=== PATIENT | male | born 1965 | race Caucasian/White ===

== ENCOUNTER → 2023-10-02 10:25 | Outpatient (REF) | payer OTHER, SELFPAY | LOC: RAD 10:25 | PROVIDERS: ATTENDING PHYSICIAN Surgery Vascular Surgery | DX: I77.0 Arteriovenous fistula, acquired (principal) | CPT/HCPCS: 93990 ==

== ENCOUNTER 2023-11-27 07:21 | Day surgery (SDC) | payer OTHER, SELFPAY ==
[2023-11-27] MEDS: NSS 500 IV (08:24)
[2023-11-27 08:25] VITALS: BMI 28.4
[2023-11-27 08:27] LABS: Hematocrit 33.8 % (39.0-52.0); Hemoglobin 11.9 g/dL (13.0-18.0); Mean Corp Hgb Conc. 35.2 g/dL (33.0-37.0); Mean Corpuscular Volume 85.1 fL (80.0-94.0); Mean Platelet Volume 9.7 fL (7.4-10.4); Platelet Count 184 10^3/uL (130-400); Red Blood Cell Count 3.97 10^6/uL (4.70-6.10); Red Cell Dist. Width 17.2 % (11.5-14.5); White Blood Cell Count 4.4 10^3/uL (4.8-10.8)
[2023-11-27 08:33] LABS: Glucose - Point of Care 77 mg/dl (70-99)
[2023-11-27 08:40] LABS: INR 1.67; PT 19.8 Sec (11.4-14.6)
[2023-11-27 08:41] LABS: APTT 40.8 Sec (23.4-35.0)
[2023-11-27 08:44] VITALS: BP 142/62
--- NOTE | 2023-11-27 08:52 | W.SUR.PREOP ---
Pre-Operative Surgical Note
-
I have examined this patient prior to the performance of the scheduled procedure.
The patient's condition is unchanged from the time of the current History and
Physical and the patient is able to undergo the scheduled procedure.
--- NOTE | 2023-11-27 08:59 | PTCARENOTE ---
TYPE AND SCREEN REJECTED BY BLOOD BANK. DR AKBAR AWARE AND D/C REPEAT TYPE AND SCREEN
[2023-11-27 09:21] LABS: Blood Urea Nitrogen 19 mg/dl (9-20); Carbon Dioxide 21 mmol/L (22-30); Chloride 98 mmol/L (98-107); Estimated Creatinine Clearance 23 ml/min; Glucose 93 mg/dl (70-99); Potassium 3.7 mmol/L (3.5-5.1); Sodium 132 mmol/L (135-145); eGFR 21.74
--- NOTE | 2023-11-27 10:27 | W.SUR.POST ---
Surgical Immediate Post Op
Note
Pre Op Diagnosis: ESRD
Post Op Diagnosis: same
Procedure Performed: LUE fistulagram, central venogram, Balloon angioplasty of perianastomotic stenosis with 5 mm and 6 mm angioplasty balloons, Balloon angioplasty of proximal outflow vein stenosis with 5 mm, 6 mm, 7 mm angioplasty balloons,
Balloon angioplasty of cephalic arch stenosis with 6 mm and 7 mm angioplasty balloon.
Primary Surgeon: Tu
Anesthesia: local and sedation
Estimated Blood Loss: <2cc
Fluids: see anesthesia flow sheet
Drains/Shunts: none
Specimens/Cultures: none
Doppler/Duplex/Angio (Y/N): Y
Complications: none
Operative Findings: +thrill
[2023-11-27 10:28] VITALS: BP 119/53; BP 142/62
[2023-11-27 10:30] VITALS: BP 118/54
[2023-11-27 10:34] LABS: Glucose - Point of Care 86 mg/dl (70-99)
--- NOTE | 2023-11-27 10:37 | OR.RPT ---
Operative Report
Operative Report
PROCEDURE DATE: 11/27/2023
Preoperative diagnosis:
1. End-stage renal disease on hemodialysis.
2. Failing left upper extremity arteriovenous fistula.
Postoperative diagnosis: Same
Procedure:
1. Duplex assisted cannulation of left upper extremity fistula.
2. Left upper extremity fistulogram and central venogram.
3. Balloon angioplasty of perianastomotic stenosis with 5 mm and 6 mm angioplasty balloons.
4. Balloon angioplasty of proximal outflow vein stenosis with 5 mm, 6 mm, 7 mm angioplasty balloons.
5. Balloon angioplasty of cephalic arch stenosis with 6 mm and 7 mm angioplasty balloon.
6. Supervision and interpretation.
Surgeon: Tu
[employer]: None
Complications: None
Anesthesia: Local, sedation
Fluoroscopy:
5.6 min
16 mGy
3.31 Gy.cm2
Indications for procedure:
End-stage renal disease on hemodialysis. Left upper extremity fistula not maturing/not functioning well. Plan for fistulogram. Risk/benefits/alternatives also discussed. Patient understood all wish to proceed.
Description of procedure:
Patient was identified, brought to the operating room. Placed on the table in the supine position. After the adequate administration of anesthesia, the patient was prepped and draped in the standard surgical fashion. A standard preoperative
timeout was undertaken and everybody was in agreement with the plan.
I punctured the outflow vein of the fistula in the mid to proximal upper arm in a peripheral facing direction using a micropuncture kit under direct duplex ultrasound guidance. A 5 [place]ogolese sheath was then advanced over a 0.035 inch wire.
Fistulogram and central venogram demonstrated patent outflow vein of the fistula in the vicinity of the sheath. No additional upper arm stenoses were identified. However at the cephalic arch there was a string-like severe stenosis. Central
venogram central to this demonstrated no additional stenoses.
At this point, using a flopping of hydrophilic wire and a glide catheter I advanced the catheter to the perianastomotic area. Fistulogram from here demonstrated patent anastomosis with moderate to high-grade stenosis at the anastomosis or in the
immediate outflow just beyond the anastomosis. A second stenosis at least moderate in the slightly more distal outflow but still in the proximal segment of the outflow vein was noted between slightly aneurysmal areas of the vein. At this point, I
used a flopping of hydrophilic wire and the glide catheter and gained access into the brachial artery proximally. I then exchanged for a 0.035 inch Storq wire. I next performed balloon angioplasty of both the areas of stenosis (perianastomotic and
proximal outflow vein) first with a 5 mm angioplasty balloon and then with a 6 mm angioplasty balloon. Completion angiogram demonstrated good result with resolution of the perianastomotic stenosis. There is still mild to moderate residual stenosis
relative to the adjacent segments of vein in the slightly more distal stenosis in the proximal outflow vein. This I then angioplasty with a 7 mm balloon. Completion angiogram demonstrated excellent result.
At this point I carefully under duplex assisted guidance was able to pull my sheath back slightly and then flip its direction to a central facing direction and then advance it. I was able to successfully do this. I then using a flopping on
hydrophilic wire and a glide catheter was able to advance my wire and then catheter through the more central stenosis at the cephalic arch. I then exchanged for a Storq wire. I performed balloon angioplasty of the cephalic arch stenosis with 6 mm
angioplasty balloon followed by 7 mm angioplasty balloon. Completion angiogram demonstrated good result with mild residual stenosis. However, the flow was markedly brisk at this point. At this point is very satisfied. I therefore then withdrew
my wires and catheters. A 4-0 Monocryl pursestring stitch was placed around the sheath entry site, and this was tied down as the sheath was withdrawn. Manual pressure was also applied to the puncture site. Hemostasis was fully achieved.
The patient tolerated procedure well.
[2023-11-27 10:45] VITALS: BP 130/59
[2023-11-27 11:05] VITALS: BP 141/62
== END 2023-11-27 12:30 | disposition home or self-care (01) ==
LOC: CATH 07:21
PROVIDERS: ATTENDING PHYSICIAN Surgery Vascular Surgery; FAMILY PHYSICIAN Internal Medicine
DX: T82.858A Stenosis of other vascular prosthetic devices, implants and grafts, initial encounter (principal); Y83.2 Surgical operation with anastomosis, bypass or graft as the cause of abnormal reaction of the patient, or of later complication, without mention of misadventure at the time of the procedure; I12.0 Hypertensive chronic kidney disease with stage 5 chronic kidney disease or end stage renal disease; E11.22 Type 2 diabetes mellitus with diabetic chronic kidney disease; N18.6 End stage renal disease; Z99.2 Dependence on renal dialysis; Z79.4 Long term (current) use of insulin; Z79.02 Long term (current) use of antithrombotics/antiplatelets; Z79.899 Other long term (current) drug therapy; Z79.84 Long term (current) use of oral hypoglycemic drugs
CPT/HCPCS: 36902; 76937; 80048; 82962; 85027; 85610; 85730; 93005; C1725; C1769; C1894; Q9967

== ENCOUNTER 2024-01-19 15:56 | Inpatient (IN) | payer MEDICARE, OTHER, SELFPAY ==
[2024-01-19 10:58] VITALS: BP 139/61
[2024-01-19 11:06] LABS: Glucose - Point of Care 77 mg/dl (70-99)
[2024-01-19 11:12] VITALS: BMI 32.7
--- NOTE | 2024-01-19 11:31 | PHANOTE ---
Addendum entered by Gabbi Guillen 01/19/24 14:28:
recalled [facility] at [phone] for missing paperwork never received via fax
Original Note:
med rec note- missing paperwork for patient, called [facility] [phone], second floor nursing staff going to fax over paperwork
[2024-01-19 12:00] VITALS: BP 127/61
--- NOTE | 2024-01-19 12:54 | ED.GENMED ---
History of Present Illness
General
Chief Complaint: Swelling
Time Seen by Provider: 01/19/24 12:42
History of Present Illness
History of Present Illness:
Patient is a 58-year-old male with history of ESRD on dialysis, CHF, hypertension, hyperlipidemia, neurogenic bladder, chronic wounds, right-sided BKA presenting to the emergency department with swelling. Patient states that he has been compliant
with dialysis. Today when he checked and he was 20 pounds heavier. He states that he has not been compliant and has been drinking a lot of water and soda. He does go to the wound care for his left foot. He did have a blister on his heel that is
healing however now has a blister at the bottom of his foot. He has been having some chills but no fever. No nausea vomiting. No chest pain. Some shortness of breath.
Past History
Past History
ED Past Medical History: CHF, CVA (Left sided weakness), HTN, Hypercholesterolemia, IDDM, Renal failure (Dialysis), Other (Nonhealing foot wounds, C-diff, ) and Other (Neurogenic bladder)
ED Past Surgical History: Orthopedic (R BKA)
Social History
Tobacco: Non-smoker
Alcohol: None
Drug: None
Personal: Single
Living: [facility]
Employment: Not employed
Family History
Family History: Other (Noncontributory)
Phy Exam
Physical Exam
Physical Exam:
GENERAL: in no acute distress
HEENT: normocephalic, extraocular movements intact, moist oral mucosa
NECK: normal inspection
RESPIRATORY: no respiratory distress, clear to auscultation bilaterally
CARDIOVASCULAR: regular rate and rhythm
ABDOMEN/: soft, non-distended, non-tender to palpation, no rebound or guarding
EXTREMITIES: , + edema/swelling, right leg BKA, left lower extremity with erythema circumferentially around the lower leg into the foot with associated blister at the plantar aspect, warm well-perfused, no crepitus
NEUROLOGIC: awake and alert, moves all extremities
SKIN: warm, edematous notable on extremities
Scores
Heart Failure Risk
Heart Failure Risk Score: Not Applicable
Sepsis
Sepsis Screening
Sepsis Assessment: Sepsis Ruled Out
Sepsis Screen
Sepsis Screen: Sepsis Ruled Out
Date: 01/19/24
Time: 14:43
Course
Orders/Labs/Results
Orders:
Orders
01/19/24 12:53
CR Foot - Left 2 Views Urgent
Comment:
Reason For Exam: infection, blister
CR Leg Tibia/fibula Left 2 Vw Urgent
Comment:
Reason For Exam: infection
01/19/24 12:54
Electrocardiogram (*1) Urgent
Reason for Study: Fatigue / Weakness
EKG- Treatment ONCE
CR Chest - 2 Views Urgent
Comment:
Reason For Exam: sob
01/19/24 13:11
Complete Blood Count/With Diff Urgent
Lactic Acid Urgent
Blood Culture Q30M
ROBERT Source: Blood/Venous
Specimen Description:
Blood Culture Q30M
ROBERT Source: Blood/Venous
Specimen Description:
01/19/24 14:06
Comprehensive Metabolic Panel Urgent
NT-proBNP Urgent
Troponin I Urgent
01/19/24 14:17
Cefepime HCl [Maxipime] 1,000 mg IV NOW STA
01/19/24 14:36
Vancomycin [Vancocin] 1,500 mg 0.9% Sodium Chloride [Nss] 20 ml 0.9% Sodium Chloride 250 ml [Nss] 250 ml IV NOW
01/19/24 14:41
Potassium Chloride [KCl] 40 meq PO NOW STA
Abnormal Lab Results
01/19/24 01/19/24
13:11 14:06
WBC 13.4 H 10^3/uL
(4.8-10.8)
RBC 3.69 L 10^6/uL
(4.70-6.10)
Hgb 10.6 L g/dL
(13.0-18.0)
Hct 30.7 L %
(39.0-52.0)
RDW 15.2 H %
(11.5-14.5)
MPV 11.4 H fL
(7.4-10.4)
Abs Immat Gran (auto) 0.1 H 10^3/uL
(0-0.05)
Absolute Neuts (auto) 11.5 H 10^3/uL
(1.4-6.5)
Absolute Lymphs (auto) 1.0 L 10^3/uL
(1.2-3.4)
Absolute Monos (auto) 0.9 H 10^3/uL
(0.1-0.6)
Neutrophils % 85.5 H %
(42.2-75.2)
Lymphocytes % 7.2 L %
(20.5-51.1)
Sodium 133 L mmol/L
(135-145)
Potassium 3.0 L mmol/L
(3.5-5.1)
Chloride 97 L mmol/L
(98-107)
Creatinine 2.7 H mg/dL
(0.7-1.3)
Calcium 7.4 L mg/dl
(8.4-10.2)
Alkaline Phosphatase 174 H U/L
(38-126)
Total Protein 5.4 L g/dl
(6.3-8.2)
Albumin 2.5 L g/dl
(3.5-5.0)
01/19/24 13:11
01/19/24 14:06
Vital Signs
Initial and Last Documented VS:
Initial Vital Signs
Temp Pulse Resp BP Pulse Ox
98.6 F 71 19 139/61 96
01/19/24 10:58 01/19/24 10:58 01/19/24 10:58 01/19/24 10:58 01/19/24 10:58
Last Documented Vital Signs
Temp Pulse Resp BP Pulse Ox
98.6 F 59 15 127/61 98
01/19/24 10:58 01/19/24 12:00 01/19/24 12:00 01/19/24 12:00 01/19/24 11:09
MDM/Problems Addressed
Differential Diagnosis Includes:
Patient is a 58-year-old male with history of ESRD on dialysis, CHF, chronic wounds presenting to the emergency department with swelling and left lower extremity wound. Vitals are unremarkable and exam does show generalized swelling and notable in
the left foot as well. Exam does show erythema warmth tenderness to the left lower extremity with a blister at the plantar aspect. Left lower extremity is consistent with infection. No area of fluctuance to suggest an abscess. No crepitus for
necrotizing soft tissue infection. Will obtain x-ray to evaluate. swelling likely secondary to volume overload from diet noncompliance. Could also be CHF exacerbation. Will check blood work EKG chest x-ray as well. Patient will need admission.
Will obtain blood cultures given patient's history.
*Critical Care Note
Total Time (30-74mins, 75-104mins- exclusive of procedures): Not Applicable
Update Note
Update Note:
Blood work notable for leukocytosis. He does have a low potassium. Will replete. Chest x-ray per my interpretation with significant pulmonary edema. Unfortunately patient does not make urine so cannot give Lasix. He would benefit from dialysis
when he is admitted. I did give him antibiotics to cover for the cellulitis. X-ray per my interpretation with no gas or early signs of osteomyelitis. Discussed with hospitalist who accepted patient to their service
ED Attending Note
-
Portions of this chart may have been created with voice recognition software.� Occasional wrong word or��sound alike� substitutions may have occurred due to the inherent limitations of voice recognition software.
Discharge Plan
Departure
Prescriptions:
No Action
atorvastatin 20 MG tablet
20 mg PO HS
clopidogrel 75 MG tablet
75 mg PO DAILY
ergocalciferol (vitamin D2) 50,000 UNITS capsule
50,000 units PO Q30D
Rx Instructions:
the 15th of each month
amlodipine 10 MG tablet
10 mg PO DAILY
sorbitol 30 ML solution
30 ml PO DAILYPRN PRN (Reason: if no bm in 3 days)
torsemide 100 MG tablet
100 mg PO DAILY
omeprazole 20 MG capsule,delayed release(DR/EC)
40 mg PO DAILY
trazodone 100 MG tablet
100 mg PO HS
bisacodyl [OneLAX Bisacodyl] 10 MG suppository
10 mg [place] DAILYPRN PRN (Reason: if sorbitol ineffective)
Rx Instructions:
PRN constipation
Renal Caps 1 mg Capsule
1 cap PO DAILY
midodrine 10 mg Tablet
10 mg PO MOWEFR
acetaminophen 325 mg Tablet
650 mg PO Q6HPRN PRN (Reason: mild pain/temp>101)
insulin glargine [Basaglar KwikPen U-100 Insulin] 100 unit/mL (3 mL) Insulin Pen
4 unit SC HS
ammonium lactate 12 % Lotion
1 applic TOPICAL BID
loperamide [Imodium A-D] 2 mg Capsule
2 mg PO BIDPRN PRN (Reason: DIARRHEA)
polyethylene glycol 3350 [Miralax] 17 gram Powder In Packet
17 g PO DAILY
sodium polystyrene sulfonate 15 gram/60 mL Suspension
15 g PO DAILY PRN (Reason: MISSED DIALYSIS)
ferrous sulfate [FeroSul] 325 mg (65 mg iron) Tablet
325 mg PO DAILY
escitalopram oxalate 10 mg Tablet
15 mg PO DAILY
insulin aspart U-100 [Novolog FlexPen U-100 Insulin] 100 unit/mL (3 mL) Insulin Pen
1 sliding scale dose SC DIRECTED
Rx Instructions:
BS 150-200=2 UNITS, 201-250= 4 UNITS, 251-300=6 UNITS, 301-350=8 UNITS, 351-400=10 UNITS.
Balmex Adult Care 11.3 % Cream
1 applic TOPICAL PRN PRN (Reason: with incontinence care)
teriparatide 20 mcg/dose (600mcg/2.4mL) Pen Injector
20 mcg SC DAILY
Tradjenta 5 mg Tablet
5 mg PO DAILY
sodium chloride 1 gram Tablet
1,000 mg PO DAILY
cephalexin [Keflex] 500 mg Capsule
500 mg PO BID
Rx Instructions:
starting on 01/15/24-01/22/24
sevelamer carbonate [Renvela] 800 mg Tablet
800 mg PO TID
diclofenac sodium [Arthritis Pain (diclofenac)] 1 % Gel
4 g TOPICAL Q4HPRN PRN (Reason: left thigh)
Referrals:
Grabiel Bansal, DO [Family Provider] -
Interventions
Interventions:
*Risk Screen - Suicide Last Done: 01/19/24 10:58
*General Assessment Last Done: 01/19/24 10:58
*Neglect/Abuse Screening Last Done: 01/19/24 10:58
*ED COVID-19 Vaccine History Last Done: 01/19/24 10:58
ED- Cardiac Assessment Last Done: 01/19/24 11:08
ED- Pulmonary Assessment Last Done: 01/19/24 11:08
ED-Skin Assessment Last Done: 01/19/24 11:08
Discharge Date and Time
Print Language: POLISH
[2024-01-19 13:00] VITALS: BP 137/64
[2024-01-19 13:40] LABS: % Basophils 0.3 % (0-2); % Eosinophils 0.3 % (0-6); % Immature Granulocytes 0.4 % (0-0.5); % Lymphocytes 7.2 % (20.5-51.1); % Monocytes 6.3 % (1.7-9.3); % Neutrophils 85.5 % (42.2-75.2); Absolute Immature Granulocytes 0.1 10^3/uL (0-0.05); Absolute Monocytes 0.9 10^3/uL (0.1-0.6); Absolute Neutrophils 11.5 10^3/uL (1.4-6.5); Hematocrit 30.7 % (39.0-52.0); Hemoglobin 10.6 g/dL (13.0-18.0); Mean Corp Hgb Conc. 34.5 g/dL (33.0-37.0); Mean Corpuscular Hgb 28.7 pg (27.0-31.0); Mean Corpuscular Volume 83.2 fL (80.0-94.0); Mean Platelet Volume 11.4 fL (7.4-10.4); Nucleated Red Blood Cells % 0 % (-); Platelet Count 278 10^3/uL (130-400); Red Blood Cell Count 3.69 10^6/uL (4.70-6.10); Red Cell Dist. Width 15.2 % (11.5-14.5); White Blood Cell Count 13.4 10^3/uL (4.8-10.8)
[2024-01-19 13:49] LABS: Lactic Acid 0.7 mmol/L (0.7-2.0)
[2024-01-19] MEDS: MAXIPIME 1000 MG IV (14:34)
[2024-01-19 14:39] LABS: ALT (SGPT) 14 U/L (0-50); AST (SGOT) 18 U/L (17-59); Albumin 2.5 g/dl (3.5-5.0); Alkaline Phosphatase 174 U/L (38-126); Blood Urea Nitrogen 15 mg/dl (9-20); Calcium 7.4 mg/dl (8.4-10.2); Carbon Dioxide 26 mmol/L (22-30); Chloride 97 mmol/L (98-107); Estimated Creatinine Clearance 32 ml/min; Glucose 94 mg/dl (70-99); Sodium 133 mmol/L (135-145); Total Bilirubin 0.9 mg/dl (0.2-1.3); Total Protein 5.4 g/dl (6.3-8.2); eGFR 26.66
[2024-01-19] MEDS: KCL 40 MEQ PO (14:45)
[2024-01-19] MEDS: VANCOCIN 300 ML IV (14:45)
[2024-01-19] MEDS: VANCOCIN 300 MG IV (14:45)
[2024-01-19 14:49] LABS: NT-proBNP > 27000 pg/ml; Troponin I < 0.012 ng/ml
--- NOTE | 2024-01-19 15:27 | W.CON.NEPH ---
Consultation
-
Date/Time Consultation Requested: 01/19/24 1400
Date/Time Consultation Performed: 01/19/24 1530
Requesting Provider: Dr. Kent
Performing Provider: Dr. Horn
Reason for Consultation: ESRD
Medical History
-
Chief Complaint: nausea
History of Present Illness:
This is a 58-year-old gentleman who has end-stage renal disease on hemodialysis Fridays at [facility]. He receives dialysis today. He says that his usual time of 4 hours was reduced because he had felt sick and so
only received 3-1/2 hours today.When seen in the emergency room he was found to have nonhealing left lower leg wounds and required admission. He does note that they are unable to take off all the volume on dialysis and that he is not compliant with
his fluid restriction. He does have hypertension on a multidrug regimen but does take midodrine prior to dialysis each treatment. He also has diabetes treated with insulin therapy. He did have a fistula created in the beginning of November which
has not been cleared for use yet.
Past Medical History
1. End-stage renal disease since January 2021.
2. Type 2 diabetes.
3. Neurogenic bladder.
4. Lower extremity wounds.
5. Right AKA.
6. GERD.
7. Hypertension.
8. Right IJ catheter.
9. History of C diff.
10.History of hyperphosphatemia.
11.History of ambulatory dysfunction.
12.History of dyslipidemia.
13. Left AV fistula
Social History
Tobacco: Non-Smoker
Alcohol: None
Family History
Family History: Not Pertinent
Allergies / Home Medications
Allergy/AdvReac Type Severity Reaction Status Date / Time
No Known Allergies Allergy Verified 11/27/23 08:26
�Medication �Instructions �Recorded �Confirmed �Type
atorvastatin 20 mg tablet 20 mg PO HS High cholesterol 05/21/21 01/19/24 History
clopidogrel 75 mg tablet 75 mg PO DAILY Blood clot 05/21/21 01/19/24 History
prevention/tx
ergocalciferol (vitamin D2) 1,250 50,000 units PO Q30D Supplement 05/21/21 01/19/24 History
mcg (50,000 unit) capsule
amlodipine 10 mg tablet 10 mg PO DAILY Blood pressure 06/05/21 01/19/24 History
sorbitol 70 % solution 30 ml PO DAILYPRN PRN if no bm in 06/21/21 01/19/24 History
3 days
omeprazole 20 mg capsule,delayed 40 mg PO DAILY Gastrointestinal 09/18/21 01/19/24 History
release issue
bisacodyl 10 mg rectal suppository 10 mg [place] DAILYPRN PRN if sorbitol 09/19/21 01/19/24 History
(OneLAX Bisacodyl) ineffective
trazodone 100 mg tablet 100 mg PO HS Sleep 09/19/21 01/19/24 History
midodrine 10 mg tablet 10 mg PO MOWEFR prior to HD, HOLD 11/26/21 01/19/24 History
SBP >140
vitamin B complex and vitamin C 1 cap PO DAILY Supplement 11/26/21 01/19/24 History
no.20-folic acid 1 mg capsule
(Renal Caps)
acetaminophen 325 mg tablet 650 mg PO Q6HPRN PRN mild 12/03/21 01/19/24 History
pain/temp>101
insulin glargine 100 unit/mL (3 4 unit SC HS Diabetes 12/22/21 01/19/24 History
mL) subcutaneous pen (Basaglar
KwikPen U-100 Insulin)
ammonium lactate 12 % lotion 1 applic topical BID left foot 11/20/23 01/19/24 History
escitalopram oxalate 10 mg tablet 15 mg PO DAILY 11/20/23 01/19/24 History
ferrous sulfate 325 mg (65 mg 325 mg PO DAILY 11/20/23 01/19/24 History
iron) tablet (FeroSul)
insulin aspart U-100 100 unit/mL 1 sliding scale dose SC DIRECTED 11/20/23 01/19/24 History
(3 mL) subcutaneous pen (Novolog
FlexPen U-100 Insulin aspart)
linagliptin 5 mg tablet (Tradjenta) 5 mg PO DAILY 11/20/23 01/19/24 History
loperamide 2 mg capsule (Imodium 2 mg PO BIDPRN PRN DIARRHEA 11/20/23 01/19/24 History
A-D)
polyethylene glycol 3350 17 gram 17 g PO DAILY 11/20/23 01/19/24 History
oral powder packet (Miralax)
sodium polystyrene sulfonate 15 15 g PO DAILYPRN PRN MISSED 11/20/23 01/19/24 History
gram/60 mL oral suspension DIALYSIS
teriparatide 20 mcg/dose (600 20 mcg SC DAILY 11/20/23 01/19/24 History
mcg/2.4 mL) subcutaneous pen
injector
zinc oxide-vitamin B5-vit E 11.3% 1 applic topical PRN PRN with 11/20/23 01/19/24 History
topical cream (Balmex Adult Care) incontinence care
cephalexin 500 mg capsule 500 mg PO BID 01/19/24 01/19/24 History
diclofenac sodium 1 % topical gel 4 g topical Q4HPRN PRN left thigh 01/19/24 01/19/24 History
(Arthritis Pain (diclofenac))
ondansetron HCl 4 mg tablet 4 mg PO Q8HPRN PRN nausea 01/19/24 01/19/24 History
sevelamer carbonate 800 mg tablet 800 mg PO TID 01/19/24 01/19/24 History
(Renvela)
sodium chloride 1 gram tablet 1,000 mg PO DAILY 01/19/24 01/19/24 History
torsemide 20 mg tablet 120 mg PO DAILY 01/19/24 01/19/24 History
Review of Systems
-
Malaise
All other systems: Negative unless noted
Physical Exam
Vital Signs
Vital Signs
Temp Pulse Resp BP Pulse Ox
98.6 F 61 18 137/64 92
01/19/24 10:58 01/19/24 14:45 01/19/24 14:45 01/19/24 13:00 01/19/24 14:45
Lab Results
WBC 13.4 10^3/uL (4.8-10.8) H 01/19/24 13:11
RBC 3.69 10^6/uL (4.70-6.10) L 01/19/24 13:11
Hgb 10.6 g/dL (13.0-18.0) L 01/19/24 13:11
Hct 30.7 % (39.0-52.0) L 01/19/24 13:11
Plt Count 278 10^3/uL (130-400) 01/19/24 13:11
Sodium 133 mmol/L (135-145) L 01/19/24 14:06
Potassium 3.0 mmol/L (3.5-5.1) L 01/19/24 14:06
Chloride 97 mmol/L (98-107) L 01/19/24 14:06
Carbon Dioxide 26 mmol/L (22-30) 01/19/24 14:06
BUN 15 mg/dl (9-20) 01/19/24 14:06
Creatinine 2.7 mg/dL (0.7-1.3) H 01/19/24 14:06
eGFR 26.66 01/19/24 14:06
Glucose 94 mg/dl (70-99) 01/19/24 14:06
Calcium 7.4 mg/dl (8.4-10.2) L 01/19/24 14:06
Qis-P-Kkpdwtbpuca Pept > 48474 pg/ml 01/19/24 14:06
Albumin 2.5 g/dl (3.5-5.0) L 01/19/24 14:06
Laboratory Tests
01/19/24
13:11
Lactic Acid 0.7
Laboratory Tests
11/27/23
08:41
Sodium 132 L
Physical Exam
Patient is awake alert oriented and in no distress. Mood and affect were pleasant, insight and judgment were good. Pupils are equal round and reactive to light, extraocular movements are intact, sclera were anicteric. Hearing was normal, ears and
nose are intact. Oropharynx was clear. Neck was supple with trachea midline and no thyromegaly. Heart was regular rate and rhythm without rubs. Lower extremities with 3+ edema. Lungs were clear to auscultation bilaterally and with normal
excursion. Abdomen was soft, nontender, with normal active bowel sounds, and no hepatosplenomegaly. Skin was without rash and with normal turgor. Right BKA noted. Left lower leg significant erythema and edema with bullous lesion.AV fistula left
upper arm with good thrill and bruit
Data Reviewed
-
Radiology: Image Personally Visualized and interpreted (Chest x-ray on 01/11/2024 by my reading shows pulmonary edema, right lower lobe opacity)
Medical Tests (Nuc Med, Echo etc): Image Personally Visualized and interpreted (EKG on 01/11/2024 by my reading shows sinus rhythm incomplete left bundle branch block nonspecific T wave abnormality prolonged QT)
Labs: Labs Reviewed by me
Old Records: Reviewed
Assessment/Plan
-
Assessment
ESRD
Hypertension
volume overload
AV fistula right upper arm
Left lower leg wound
Diabetes mellitus type 2
Plan
Will ultrafilter tomorrow for as much volume as possible
next regular dialysis on Friday
Antibiotics per primary team
Vascular evaluation
--- NOTE | 2024-01-19 15:39 | HPS.HSE ---
Addendum entered and electronically signed by Chino Kent MD 01/19/24 16:41:
I saw and examined the patient.
The SHAPER SETTER or PA's note was reviewed and I agree with the note.
Comment:
58 y/o male past medical history of ESRD on HD, IDDM and prior Right BKA who presents with left foot wound.
Left Foot Cellulitis secondary to Infected Left Foot Wound
- agree with vancomycin and cefepime
- Lower Ext WALKER per vascular
Wound Care consult
- vbascular consulted
ESRD on HD
- grossly volume overload
- he is anuric
- volume management with additional dialysis
-Monitor Is&Os and Daily Weights
- Nephro seen at ER
DVT Px SQH
Full code
IP MS
Original Note:
Family Physician
-
Family Physician: Grabiel Bansal, DO
Chief Complaint
-
Left foot wound
History of Present Illness
Patient is a 58 y/o male past medical history of ESRD on HD, IDDM and prior Right BKA who presents with left foot wound. Patient reports a non-healing wound over on his left foot for the past two weeks. He reports a black area closer to his heel,
and then a large blister on the bottom of the foot. He also reports increased body swelling and weight gain. He reports slight cough but denies shortness of breath. He denies fever, but has noted some intermittent chills.
Medical History
Past Medical History
Past Medical History: Reports Other
Additional Past Medical History:
ESRD on HD
Anemia of Chronic Disease
Diabetes Mellitus, Insulin-Dependent
Diabetic Neuropathy
CVA
Osteomyelitis Right Foot/Ankle s/p Right BKA
Essential Hypertension
Hyperlipidemia
Left Humerus Fracture
Past Surgical History: Reports Other
Additional Past Surgical History:
Left Upper Ext AV Fistula
Right BKA
Social History
Tobacco: Non-smoker
Living: Shelter
Family History
Family History: Not pertinent
Allergies / Home Medications
Allergies reflects when Allergies were last updated in [facility].
Home Medications with original date entered in [facility]
Allergy/Medication List:
Allergies
Allergy/AdvReac Type Severity Reaction Status Date / Time
No Known Allergies Allergy Verified 11/27/23 08:26
Home Medications
atorvastatin 20 mg tablet 20 mg PO HS High cholesterol 05/21/21
clopidogrel 75 mg tablet 75 mg PO DAILY Blood clot prevention/tx 05/21/21
ergocalciferol (vitamin D2) 1,250 mcg (50,000 unit) capsule 50,000 units PO Q30D Supplement 05/21/21
amlodipine 10 mg tablet 10 mg PO DAILY Blood pressure 06/05/21
sorbitol 70 % solution 30 ml PO DAILYPRN PRN if no bm in 3 days 06/21/21
omeprazole 20 mg capsule,delayed release 40 mg PO DAILY Gastrointestinal issue 09/18/21
bisacodyl 10 mg rectal suppository (OneLAX Bisacodyl) 10 mg MI DAILYPRN PRN if sorbitol ineffective 09/19/21
trazodone 100 mg tablet 100 mg PO HS Sleep 09/19/21
midodrine 10 mg tablet 10 mg PO MOWEFR prior to HD, HOLD SBP >140 11/26/21
vitamin B complex and vitamin C no.20-folic acid 1 mg capsule (Renal Caps) 1 cap PO DAILY Supplement 11/26/21
acetaminophen 325 mg tablet 650 mg PO Q6HPRN PRN mild pain/temp>101 12/03/21
insulin glargine 100 unit/mL (3 mL) subcutaneous pen (Basaglar KwikPen U-100 Insulin) 4 unit SC HS Diabetes 12/22/21
ammonium lactate 12 % lotion 1 applic topical BID left foot 11/20/23
escitalopram oxalate 10 mg tablet 15 mg PO DAILY 11/20/23
ferrous sulfate 325 mg (65 mg iron) tablet (FeroSul) 325 mg PO DAILY 11/20/23
insulin aspart U-100 100 unit/mL (3 mL) subcutaneous pen (Novolog FlexPen U-100 Insulin aspart) 1 sliding scale dose SC DIRECTED 11/20/23
linagliptin 5 mg tablet (Tradjenta) 5 mg PO DAILY 11/20/23
loperamide 2 mg capsule (Imodium A-D) 2 mg PO BIDPRN PRN DIARRHEA 11/20/23
polyethylene glycol 3350 17 gram oral powder packet (Miralax) 17 g PO DAILY 11/20/23
sodium polystyrene sulfonate 15 gram/60 mL oral suspension 15 g PO DAILYPRN PRN MISSED DIALYSIS 11/20/23
teriparatide 20 mcg/dose (600 mcg/2.4 mL) subcutaneous pen injector 20 mcg SC DAILY 11/20/23
zinc oxide-vitamin B5-vit E 11.3% topical cream (Balmex Adult Care) 1 applic topical PRN PRN with incontinence care 11/20/23
cephalexin 500 mg capsule 500 mg PO BID 01/19/24
diclofenac sodium 1 % topical gel (Arthritis Pain (diclofenac)) 4 g topical Q4HPRN PRN left thigh 01/19/24
ondansetron HCl 4 mg tablet 4 mg PO Q8HPRN PRN nausea 01/19/24
sevelamer carbonate 800 mg tablet (Renvela) 800 mg PO TID 01/19/24
sodium chloride 1 gram tablet 1,000 mg PO DAILY 01/19/24
torsemide 20 mg tablet 120 mg PO DAILY 01/19/24
Review of Systems
-
A 12 point ROS was completed and negative except as noted: Yes
Constitutional: Reports Chills; Denies Fever
Respiratory: Reports Cough
Cardiac: Denies Chest Pain or Palpitations
Abdomen/GI: Reports Nausea; Denies Abdominal Pain
: Reports Other (Patient reports he does not make urine)
Physical Exam
Vital Signs
Vital Signs
Temp Pulse Resp BP Pulse Ox
98.6 F 64 18 137/64 94
01/19/24 10:58 01/19/24 15:00 01/19/24 15:00 01/19/24 13:00 01/19/24 15:00
Physical Exam
General: Comfortable and Conversant
HEENT: Anicteric and Moist mucous membranes
Respiratory: Non Labored Respirations and Decreased Breath Sounds (Bilateral bases)
Cardiac: S1/S2, Regular Rhythm and Murmur
GI: Soft and Non Tender
Musculoskeletal: No Clubbing, No Cyanosis, Edema, Left Lower Extremity and Other (Right BKA)
Skin: Warm, Dry and Other (Black eschar left Achilles region with foul smell noted; Large dark colored bullae across plantar aspect of left foot with surrounding erythema and increased warmth to touch)
Laboratory Results
-
01/19/24 13:11
01/19/24 14:06
Laboratory Results
Lactic Acid 0.7 mmol/L (0.7-2.0) 01/19/24 13:11
Total Bilirubin 0.9 mg/dl (0.2-1.3) 01/19/24 14:06
AST 18 U/L (17-59) 01/19/24 14:06
ALT 14 U/L (0-50) 01/19/24 14:06
Alkaline Phosphatase 174 U/L (38-126) H 01/19/24 14:06
Troponin I < 0.012 ng/ml 01/19/24 14:06
Data Reviewed
-
Lab Data: Labs Reviewed by me
Old Records: Reviewed
Impression/Plan
-
Left Foot Cellulitis secondary to Infected Left Foot Wound
-Continue vancomycin and cefepime
-Check Lower Ext WALKER
-Consult Wound Care
ESRD on HD
-Consult Nephrology
-Patient appears grossly volume overload
-Patient states he is anuric - Plan for volume management with additional dialysis
-Monitor Is&Os and Daily Weights
Diabetes Mellitus, Insulin-Dependent
-Check HgbA1c
-Continue glargine and Tradjenta
-Monitor sugars and continue coverage insulin
Hx CVA/TIA
-Continue Plavix
Essential Hypertension
-Continue amlodipine
Hyperlipidemia
-Continue atorvastatin
Depression
-Continue escitalopram and trazodone
DVT proph: SC Heparin
Code Status: Full Code
--- NOTE | 2024-01-19 16:05 | CON.VAS ---
Addendum entered and electronically signed by PHIL Sheppard 01/20/24 13:10:
Left foot
Addendum entered and electronically signed by Shaheed Mae MD 01/20/24 11:11:
Seen and examined with VENECIA Mcmillan earlier this a.m. This is a late entry. Patient well-known to me status post left upper extremity AV fistula with now foot wounds/blisters. Nonhealing. Concern for peripheral arterial disease/arterial
insufficiency. History of prior right BKA. On exam he has palpable femoral pulses but nonpalpable distally. Wounds as noted in wound care pictures. Discussed extensively with patient my recommendation for angiography to confirm adequacy of
perfusion as well as possible angioplasty/stenting. Discussed potential scenarios/outcomes of angiography to be: #1 successful endovascular revascularization, #2 need for staged surgical intervention/bypass, #3 nonreconstructable distal disease
with persistent limb threat. Discussed without revascularization if peripheral arterial disease exist, the risk of limb threat. Discussed risks of procedure including but not limited to bleeding, arterial injury/worsened or acute limb ischemia,
access site complications. He understands all and wishes to proceed with left lower extremity arteriogram, possible angioplasty stent. Will plan angiography tomorrow or the day after pending his dialysis needs. Ideally would favor doing on a
nondialysis day.
Original Note:
Consultation
Consultation Request
Performing Provider: Tu
Reason for Consultation: Necrotic left foot wound
Medical History
-
Chief Complaint: Worsening left lower extremity wounds
History of Present Illness:
58 yo male with history of ESRD on dialysis, CHF, hypertension, hyperlipidemia, neurogenic bladder, chronic wounds, right-sided BKA presenting to the emergency department with swelling/nonhealing left lower extremity foot wounds. Patient seen at
bedside in the ER for nonhealing left foot wound evaluation. Patient states he follows with the wound care center for his left foot. He did have a blister on his heel that is healing however now has a blister at the bottom of his foot. He also
has a dry necrotic heel wound on the same foot. Nonpalpable distal pulses. +1 right femoral pulse, +2 left femoral pulse. Palpable thrill at fistula site.
Past Medical History
Past Medical History: Other (CHF, CVA (Left sided weakness), HTN, Hypercholesterolemia, IDDM, Renal failure (Dialysis), Other (Nonhealing foot wounds, C-diff, ) and Other (Neurogenic bladder))
Past Surgical History: Orthopedic (Right BKA, AV fistula creation)
Social History
Tobacco: Non-Smoker
Alcohol: None
Drug: None
Personal: Single
Living: Alf
Employment: Not Employed
Family History
Family History: Reviewed & Not Pertinent
Allergies / Home Medications
Allergy/AdvReac Type Severity Reaction Status Date / Time
No Known Allergies Allergy Verified 11/27/23 08:26
�Medication �Instructions �Recorded �Confirmed �Type
atorvastatin 20 mg tablet 20 mg PO HS High cholesterol 05/21/21 01/19/24 History
clopidogrel 75 mg tablet 75 mg PO DAILY Blood clot 05/21/21 01/19/24 History
prevention/tx
ergocalciferol (vitamin D2) 1,250 50,000 units PO Q30D Supplement 05/21/21 01/19/24 History
mcg (50,000 unit) capsule
amlodipine 10 mg tablet 10 mg PO DAILY Blood pressure 06/05/21 01/19/24 History
sorbitol 70 % solution 30 ml PO DAILYPRN PRN if no bm in 06/21/21 01/19/24 History
3 days
omeprazole 20 mg capsule,delayed 40 mg PO DAILY Gastrointestinal 09/18/21 01/19/24 History
release issue
bisacodyl 10 mg rectal suppository 10 mg HI DAILYPRN PRN if sorbitol 09/19/21 01/19/24 History
(OneLAX Bisacodyl) ineffective
trazodone 100 mg tablet 100 mg PO HS Sleep 09/19/21 01/19/24 History
midodrine 10 mg tablet 10 mg PO MOWEFR prior to HD, HOLD 11/26/21 01/19/24 History
SBP >140
vitamin B complex and vitamin C 1 cap PO DAILY Supplement 11/26/21 01/19/24 History
no.20-folic acid 1 mg capsule
(Renal Caps)
acetaminophen 325 mg tablet 650 mg PO Q6HPRN PRN mild 12/03/21 01/19/24 History
pain/temp>101
insulin glargine 100 unit/mL (3 4 unit SC HS Diabetes 12/22/21 01/19/24 History
mL) subcutaneous pen (Basaglar
KwikPen U-100 Insulin)
ammonium lactate 12 % lotion 1 applic topical BID left foot 11/20/23 01/19/24 History
escitalopram oxalate 10 mg tablet 15 mg PO DAILY 11/20/23 01/19/24 History
ferrous sulfate 325 mg (65 mg 325 mg PO DAILY 11/20/23 01/19/24 History
iron) tablet (FeroSul)
insulin aspart U-100 100 unit/mL 1 sliding scale dose SC DIRECTED 11/20/23 01/19/24 History
(3 mL) subcutaneous pen (Novolog
FlexPen U-100 Insulin aspart)
linagliptin 5 mg tablet (Tradjenta) 5 mg PO DAILY 11/20/23 01/19/24 History
loperamide 2 mg capsule (Imodium 2 mg PO BIDPRN PRN DIARRHEA 11/20/23 01/19/24 History
A-D)
polyethylene glycol 3350 17 gram 17 g PO DAILY 11/20/23 01/19/24 History
oral powder packet (Miralax)
sodium polystyrene sulfonate 15 15 g PO DAILYPRN PRN MISSED 11/20/23 01/19/24 History
gram/60 mL oral suspension DIALYSIS
teriparatide 20 mcg/dose (600 20 mcg SC DAILY 11/20/23 01/19/24 History
mcg/2.4 mL) subcutaneous pen
injector
zinc oxide-vitamin B5-vit E 11.3% 1 applic topical PRN PRN with 11/20/23 01/19/24 History
topical cream (Balmex Adult Care) incontinence care
cephalexin 500 mg capsule 500 mg PO BID 01/19/24 01/19/24 History
diclofenac sodium 1 % topical gel 4 g topical Q4HPRN PRN left thigh 01/19/24 01/19/24 History
(Arthritis Pain (diclofenac))
ondansetron HCl 4 mg tablet 4 mg PO Q8HPRN PRN nausea 01/19/24 01/19/24 History
sevelamer carbonate 800 mg tablet 800 mg PO TID 01/19/24 01/19/24 History
(Renvela)
sodium chloride 1 gram tablet 1,000 mg PO DAILY 01/19/24 01/19/24 History
torsemide 20 mg tablet 120 mg PO DAILY 01/19/24 01/19/24 History
Review of Systems
-
History Source: Patient
All other systems: Negative unless noted
Constitutional: Reports No Symptoms
EENT: Reports No Symptoms
Respiratory: Reports No Symptoms
Cardiac: Reports No Symptoms
Vascular: Denies Leg Pain / Claudication
Abdomen/GI: Reports No Symptoms
: Reports No Symptoms
Musculoskeletal: Reports Edema
Skin: Reports Other (Large blister to the left forefoot that extends underneath the foot. Black dry heel ulcer )
Neurological: Reports No Symptoms
Endocrine: Reports No Symptoms
Physical Exam
Vital Signs
Temp Pulse Resp BP Pulse Ox
98.6 F 64 18 137/64 94
01/19/24 10:58 01/19/24 15:00 01/19/24 15:00 01/19/24 13:00 01/19/24 15:00
Lab Results
01/19/24 13:11
01/19/24 14:06
Troponin I < 0.012 ng/ml 01/19/24 14:06
Iru-X-Yrvtmcjnjou Pept > 13365 pg/ml 01/19/24 14:06
Physical Exam
General: No Apparent Distress
HEENT: Normocephalic and Atraumatic
Respiratory: Non Labored Respirations
Cardiac: Negative JVD
GI: Soft and Non Tender
Musculoskeletal: No Clubbing, No Cyanosis and Edema
Skin: Warm, Dry and Other (Will attach pictures of wounds)
Neuro: Awake, Alert and Oriented
Psych: Calm
Pulses: Left Femoral: +2 and Right Femoral: +1
Assessment / Plan
-
58-year-old male here for nonhealing left foot wounds
Arterial ultrasounds pending
Plan:
-Will d/w vascular attending
Data Reviewed
-
Labs: Labs Reviewed by me
[2024-01-19 20:43] VITALS: BMI 31.3
[2024-01-19 20:44] VITALS: BP 146/63
[2024-01-19 21:14] VITALS: BMI 31.3
[2024-01-19 22:36] LABS: Glucose - Point of Care 94 mg/dl (70-99)
--- NOTE | 2024-01-19 22:38 | PHA.VAN.IN ---
Assessment
- Assessment
Renal Function: Patient has ESRD, on chronic Hemodialysis
Hemodialysis Schedule: MWF
Concomitant Antimicrobials: CEFEPIME
- Previous Dosing Experience
Previous Regimen: DOSING BY RANDOM LEVEL
Date of Regimen: 05/22/21
Provided Trough of: UNKNOWN
Provided AUC of: UNKNOWN
Patient's SCR is: Similar to previous dosing experience
Patient's weight is: Decreased compared to previous dosing experience (05/22/21 WT = 91.1 KG)
Plan
- Plan
Initial / Loading Dose: 1500MG
Maintenance Regimen: DOSING BY RANDOM LEVELS
Monitoring: RANDOM VANCOMYCIN LEVEL 01/20/24 AM
Pharmacokinetics Vancomycin I
- -
Patient Age: 58
Patient Sex: Male
Vancomycin Day #: 1
Indication: Diabetic Foot
Requesting Provider: GET
Height / Weight:
Height 5 ft 6 in
Actual Weight 87.815 kg
Pertinent Past Medical History: ESRD
- Vital Signs / Lab Results
Temp Pulse Resp BP Pulse Ox
98.4 F 66 18 146/63 93
01/19/24 20:44 01/19/24 20:44 01/19/24 20:44 01/19/24 20:44 01/19/24 20:44
Lab Results - Hematology
01/19/24
13:11
WBC 13.4 H
Lab Results - Chemistry
01/19/24 01/19/24
13:11 14:06
BUN Cancelled 15
Creatinine Cancelled 2.7 H
Estimated Creat Clear Cancelled 32
Albumin Cancelled 2.5 L
01/19/24
13:11
Lactic Acid 0.7
[2024-01-19] MEDS: NOVOLOG FLEXPEN-MODERATE RESISTANCE SC (22:40)
[2024-01-19] MEDS: LIPITOR 20 MG PO (22:41)
[2024-01-19] MEDS: LANTUS 0.04 UNITS SC (22:41)
[2024-01-19] MEDS: DESYREL 100 MG PO (22:41)
[2024-01-19] MEDS: HEPARIN 5000 UNITS SC (23:18)
[2024-01-19 23:55] VITALS: BP 130/53
--- NOTE | 2024-01-20 04:05 | PTCARENOTE ---
Pt admitted from ED, AAOx3. Pt afebrile, VSS. Lungs clear, pt on room air. No N/V or stools. Plan for HD this AM. Bed in lowest position, call cabrera within reach.
[2024-01-20 06:00] VITALS: BMI 31.3
[2024-01-20] MEDS: TYLENOL 650 MG PO (06:17)
[2024-01-20 07:35] LABS: Glucose - Point of Care 61 mg/dl (70-99)
[2024-01-20 07:37] VITALS: BP 125/52
[2024-01-20 07:54] LABS: Glucose - Point of Care 57 mg/dl (70-99)
[2024-01-20] MEDS: NOVOLOG FLEXPEN-MODERATE RESISTANCE SC ×3 (08:04→16:57)
[2024-01-20] MEDS: PROTONIX 40 MG PO (08:05)
[2024-01-20] MEDS: DESENEX/MITRAZOL/ZEASORB 1 APPLIC TOPICAL (08:05)
[2024-01-20] MEDS: SODIUM CHLORIDE 1 GRAM PO (08:05)
[2024-01-20] MEDS: RENVELA 800 MG PO ×3 (08:05→16:59)
[2024-01-20] MEDS: LEXAPRO 15 MG PO (08:06)
[2024-01-20] MEDS: NEPHROCAP 1 CAPSULE PO (08:06)
[2024-01-20] MEDS: HEPARIN 5000 UNITS SC ×2 (08:08→16:58)
[2024-01-20] MEDS: JANUVIA 25 MG PO (08:08)
[2024-01-20] MEDS: MIRALAX 17 GRAMS PO (08:10)
[2024-01-20] MEDS: PLAVIX 75 MG PO (08:10)
[2024-01-20] MEDS: FEOSOL 325 MG PO (08:10)
[2024-01-20 08:17] LABS: Glucose - Point of Care 92 mg/dl (70-99)
--- NOTE | 2024-01-20 08:29 | PHA.VAN.FU ---
Vancomycin Assessment / Plan
- Assessment
Hemodialysis Schedule: MWF
Concomitant Antimicrobials: cefepime
plan for ultrafiltration today
- Assessment - Therapeutic Drug Monitoring
Random Level: 13.2 - drawn ~17.5H after 1500mg initial dose
- Dosing Plan
Dosing by Level: Hold off on dosing today (plan for ultrafiltration today and HD tomorrow)
Dosing Comments: will plan for 750mg with HD tomorrow
- Monitoring Plan
No level(s) ordered at this time: will re-dose tomorrow based on today's level, no repeat level necessary
- Follow Up
Pharmacy will continue to follow.
Vancomycin Follow UP
- -
Patient Age: 58
Patient Sex: Male
Vancomycin Day #: 2
Indication: Diabetic Foot
Requesting Provider: Juno Mai
Pertinent Antimicrobial Allergies:
NKDA
Height / Weight:
Height 5 ft 6 in
Actual Weight 87.815 kg
Pertinent Past Medical History: ESRD, BMI ~31, R. BKA, DM
- Vital Signs / Lab Results
Temp Pulse Resp BP Pulse Ox
100.5 F H 55 18 125/52 93
01/20/24 07:37 01/20/24 07:37 01/20/24 07:37 01/20/24 07:37 01/20/24 07:37
Lab Results - Hematology
01/19/24
13:11
WBC 13.4 H
Lab Results - Chemistry
01/19/24 01/19/24
13:11 14:06
BUN Cancelled 15
Creatinine Cancelled 2.7 H
Estimated Creat Clear Cancelled 32
Albumin Cancelled 2.5 L
01/19/24
13:11
Lactic Acid 0.7
[2024-01-20] MEDS: HEPARIN 500 UNITS IV ×2 (08:40→09:40)
[2024-01-20 09:15] LABS: Vancomycin Random 13.2 ug/ml
[2024-01-20 09:21] LABS: Glycohemoglobin (HgbA1c) 5.5 % (4.0-5.6)
[2024-01-20 09:43] LABS: Hematocrit 29.4 % (39.0-52.0); Mean Corpuscular Hgb 29.3 pg (27.0-31.0); Mean Corpuscular Volume 86.2 fL (80.0-94.0); Mean Platelet Volume 10.2 fL (7.4-10.4); Platelet Count 236 10^3/uL (130-400); Red Blood Cell Count 3.41 10^6/uL (4.70-6.10); Red Cell Dist. Width 15.3 % (11.5-14.5); White Blood Cell Count 8.3 10^3/uL (4.8-10.8)
[2024-01-20 09:58] LABS: Blood Urea Nitrogen 20 mg/dl (9-20); Calcium 7.1 mg/dl (8.4-10.2); Carbon Dioxide 26 mmol/L (22-30); Chloride 95 mmol/L (98-107); Estimated Creatinine Clearance 26 ml/min; Glucose 96 mg/dl (70-99); Potassium 3.3 mmol/L (3.5-5.1); Sodium 135 mmol/L (135-145); eGFR 21.74
[2024-01-20 10:19] LABS: Glucose - Point of Care 83 mg/dl (70-99)
[2024-01-20 11:04] LABS: Glucose - Point of Care 80 mg/dl (70-99)
--- NOTE | 2024-01-20 11:17 | WOUNDNOTE ---
L MEDIAL DORAL FOOT
--- NOTE | 2024-01-20 11:18 | WOUNDNOTE ---
L MEDIAL PLANTAR FOOT
--- NOTE | 2024-01-20 11:20 | WOUNDNOTE ---
WON RN note: Patient admitted with cellulitis of L foot.
See H&P for complete history. Lives at [facility].
PMH: R BKA, Angioplasty, IDDM, pneumonia, RF-hemodialysis, CHF,HTN, UTI, Bed bound.
Wound Location and type/assessment: Patient admitted with: L foot blister, serous in color on dorsal aspect, wraps around to plantar foot with blood tinged intact blister. L heel with unstageable PI, dry intact brown eschar. Unable to see sacrum at
this time- on dialysis, reported stage 2 PI. Patient reports he is not on any special bed at [facility], has been bedbound and needs assist with repositioning. Heel offloaded with pillows under calves. Reviewed vascular note, arterial study pending. X ray
of L foot negative for osteomyelitis or fractures. R stump no wounds reports patient.
Appetite:Good.
Pressure redistribution devices in place: On Accumax, asked nurse Vini to put waffle air overlay on bed when off dialysis. Offload heel with pillows, can add air cushion on pillow if needed. Turning schedule.
Plan: Today painted L heel with Betadine then ABD pad, adaptic over blister with dry dressing and Spandage. Will try to assess sacrum later today if able or follow tomorrow. Will confirm orders with hospitalist and updated nurse.
Updated care plan and will follow as needed.
Note to case management of equipment requested for discharge: Air mattress.
Recommend follow up at wound care center upon discharge.
[2024-01-20 11:30] LABS: Hepatitis B Surface Antigen Negative (Negative)
--- NOTE | 2024-01-20 11:36 | W.PN.HOSP.TC ---
Today's Communication/Plan
-
c/w Hemodialysis
Replaced K
d/w ID & Vascular doctors
Assessment / Plan
Assessment / Plan
Physical Exam
General: Comfortable and Conversant
HEENT: Anicteric and Moist mucous membranes
Respiratory: Non Labored Respirations and Decreased Breath Sounds (Bilateral bases). Hemodialysis catheter right upper chest: no erythema
Cardiac: S1/S2, Regular Rhythm and Murmur
GI: Soft and Non Tender
Musculoskeletal: No Clubbing, No Cyanosis, Edema, Left Lower Extremity and Other (Right BKA)
Skin: Warm, Dry and Other (Black eschar left Achilles region with foul smell noted; Large dark colored bullae across plantar aspect of left foot with surrounding erythema and increased warmth to touch)
Neurological: AO x 3
Psych: calm
# Acute left Foot Cellulitis secondary to Infected Left Foot Wound
Blister on plantar surface
Not toxic appearing
-Continue vancomycin and cefepime. WBC normalized.
-Monitor temp curve. I think temp one time of 100.5 might be not very significant. No tachycardia
-Consulted vascular/ ID and Wound Care
# Hypokalemia, replaced through HD
# Hyponatremia
#ESRD on HD
HD on TTS
-Patient appears grossly volume overload
-Patient states he is anuric - Plan for volume management with additional dialysis
-Monitor Is&Os and Daily Weights
Diabetes Mellitus, Insulin-Dependent
-Continue glargine and Tradjenta
-Monitor sugars and continue coverage insulin
Hx CVA/TIA
-Continue Plavix
Essential Hypertension
-Continue amlodipine
Hyperlipidemia
-Continue atorvastatin
Depression
-Continue escitalopram and trazodone
DVT proph: SC Heparin
Code Status: Full Code
Total time spent to see the patient, examine the patient on the floor, review data and lab results, discuss treatment plan with patient, nursing staff around 55 minutes
Anticipated Discharge: > 48 hours
Subjective/Interval History
-
Date of Service: January 20, 2024
He denies pain or sob
Objective Data
-
Labs:
Laboratory Results
01/20/24
08:35
WBC 8.3
Hgb 10.0 L
Hct 29.4 L
Plt Count 236
Sodium 135
Potassium 3.3 L
Chloride 95 L
Carbon Dioxide 26
BUN 20
Creatinine 3.2 H
Glucose 96
Calcium 7.1 L
Vital Signs:
Vital Signs
Temp Pulse Resp BP Pulse Ox
100.5 F H 55 18 125/52 93
01/20/24 07:37 01/20/24 07:37 01/20/24 07:37 01/20/24 07:37 01/20/24 07:37
I&O
01/19/24 01/20/24 01/21/24
06:59 06:59 06:59
Intake Total 960 / 960
Balance 960 / 960
[2024-01-20 11:47] LABS: Hepatitis B Surface Antibody Negative
--- NOTE | 2024-01-20 11:53 | CON.ID ---
Consultation
-
Date/Time Consultation Requested: January 20, 2024 0642
Date/Time Consultation Performed: January 20, 2024 1155
Requesting Provider: Dr. Yina Monroy
Performing Provider: Dr. Amanda Persaud
Reason for Consultation: Left foot cellulitis
Chief Complaint / Past History
Chief Complaint
Left foot wounds
History of Present Illness
58-year-old male with history of diabetes mellitus, neuropathy, right BKA, end-stage renal disease on hemodialysis who presented to the hospital January 18 due to left foot blisters and redness. He reports his body has been getting more swollen
over the past 2 weeks. The heel initially had a blister which opened leaving a black wound. He developed another large blister on the plantar aspect of his left foot. There was surrounding erythema. [facility] sent him to the hospital. His white count
was 13.4. Temperature today 100.5. Chest x-ray shows acute on chronic pulm edema with bilateral pleural effusions. BNP over 27,000. Patient denies fevers or chills. No diarrhea. He does have history of C. difficile x 2 in 2021.
Past History
Additional Past Medical History:
Diabetes mellitus
Neuropathy
End-stage renal disease on hemodialysis via HD catheter
Hypertension
CVA
Depression
hx C. diff x2 (2021)
Left humerus fracture
Right BKA
Left upper extremity AV fistula placement
Allergy History:
No Known Allergies Allergy (Verified 11/27/23 08:26)
Medications Reviewed: Yes
Current Antibiotics:
Cefepime
Vancomycin
Social History
Tobacco: Non-Smoker
Alcohol: None
Drug: None
Living: [facility] ([facility])
Family History
Family History: Not Pertinent
Review of Systems
Review of Systems
General: Negative Fever, Chills or Change in Appetite
HEENT: Negative Stiff Neck, Sinus Problems, Headache or Pharyngitis
Cardiovascular: Negative Chest Pain or Dyspnea
Respiratory: Negative Dyspnea or Cough
Gasteroenterology: Negative Nausea, Vomiting or Diarrhea
Endocrine: Weakness
All systems: All other systems were reviewed and were negative
Vital Signs
Temp Pulse Resp BP Pulse Ox
100.5 F H 55 18 125/52 93
01/20/24 07:37 01/20/24 07:37 01/20/24 07:37 01/20/24 07:37 01/20/24 07:37
Physical Exam
Physical Exam
Constitutional: No Acute Distress
Eyes: No Conjunctival Hemorrhage and Sclera Anicteric
Cardiovascular: Regular Rate and S1/S2
Pulmonary: Other (Decreased BS at bases.)
Gastrointestinal: Soft, Non Tender, Non Distended and Normal Bowel Sounds
Genito-Urinary: Negative CVA Tenderness
Extremities: Edema (Generalized), Erythema (left foot; plantar and forefoot ) and Venous Insufficiency (LLE)
Skin: Dry (LLE and left foot)
Wound: Other (Reviewed today's wound photos: left heel large wound with necrotic tissue, medial to plantar foot large hemorrhagic blister)
Neurological: AO x 3
Lines: HD Cath (RIJ no erythema)
Lab / Diagnostic Study Results
01/20/24 08:35
01/20/24 08:35
Abs Immat Gran (auto) 0.1 10^3/uL (0-0.05) H 01/19/24 13:11
Absolute Neuts (auto) 11.5 10^3/uL (1.4-6.5) H 01/19/24 13:11
Absolute Lymphs (auto) 1.0 10^3/uL (1.2-3.4) L 01/19/24 13:11
Absolute Monos (auto) 0.9 10^3/uL (0.1-0.6) H 01/19/24 13:11
Absolute Basos (auto) 0.0 10^3/uL (0-0.2) 01/19/24 13:11
Immature Gran % 0.4 % (0-0.5) 01/19/24 13:11
Neutrophils % 85.5 % (42.2-75.2) H 01/19/24 13:11
Lymphocytes % 7.2 % (20.5-51.1) L 01/19/24 13:11
Monocytes % 6.3 % (1.7-9.3) 01/19/24 13:11
Eosinophils % 0.3 % (0-6) 01/19/24 13:11
Basophils % 0.3 % (0-2) 01/19/24 13:11
Lactic Acid 0.7 mmol/L (0.7-2.0) 01/19/24 13:11
Microbiology Results
Micro:
01/19/24 21:25 MRSA Screen - Pending
Nose
01/19/24 13:11 Blood Culture - Pending
Blood/Venous
01/19/24 13:11 Blood Culture - Pending
Blood/Venous
01/19/24 Foot XRAY: No fracture, and no radiographic evidence of osteomyelitis.
01/19/24 L tib/fib xray: No osseous abnormality appreciated.
01/19/24 CXR: Small to moderate-sized bilateral pleural effusions. Large left lower lobe airspace consolidation and moderate airspace opacity in the right lower lobe. Diagnostic possibilities are (1) compressive atelectasis in the setting of pleural
effusions or (2) bilateral lower lobe pneumonia (if there are signs/symptoms of pulmonary infection). Acute on chronic interstitial and alveolar cardiogenic pulmonary edema.
Assessment / Plan
# Acute left foot cellulitis
# Left heel non-healing wound with necrotic tissue
# Fever
# Leukocytosis
- Agree with Vancomycin and cefepime
- PAD work-up as per Vasular
- Follow temps/wbc
# hx of C. diff x 2
- Start prophylactic Vanco 125mg po daily while on systemic abx's
# Anasarca
# ESRD on HD
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
Diabetes mellitus
Neuropathy
End-stage renal disease on hemodialysis via HD catheter
Hypertension
CVA
Depression
hx C. diff x2 (2021)
Left humerus fracture
Right BKA
Left upper extremity AV fistula placement
--- NOTE | 2024-01-20 12:01 | W.PN.NEPH.HD ---
Assessment
-
Seen on dialysis. UF 4kg. no issues. VSS, access ok
regular HD tomorrow
Progress Note - Hemodialysis
-
Date of Service: January 20, 2024
Duration: 45 minutes and 2 hours
Opti-Dialyzer: 160
Ultrafiltration: Other (4kg)
Blood Flow: 250
Heparin: no
EPO: no
[2024-01-20] MEDS: HEPARIN 3200 UNITS INTRACATH (12:04)
[2024-01-20] MEDS: NORVASC 10 MG PO (12:18)
[2024-01-20 12:25] LABS: Glucose - Point of Care 93 mg/dl (70-99)
[2024-01-20 13:07] VITALS: BMI 31.3
[2024-01-20] MEDS: FIRVANQ 125 MG PO (13:58)
--- NOTE | 2024-01-20 15:37 | CM ---
CM attempted bedside meeting and pt off unit
Call with nursing at [facility]
Pt is a LTC resident at [facility] with bed-hold
He has a R. BKA and non ambulatory
Independently transfers into and self propels
Independent with feeding and bathing
Incontinent of bowel and non-compliance noted with fluid restrictions
Pt received HD MWF at [facility]
Discharge Disposition- return to [facility] for LTC
[2024-01-20 16:13] VITALS: BP 168/73
[2024-01-20 17:00] LABS: Glucose - Point of Care 127 mg/dl (70-99)
[2024-01-20] MEDS: MAXIPIME 1000 MG IV (17:00)
[2024-01-20] MEDS: STERILE WATER FOR INJECTION 10 ML IV (17:03)
[2024-01-20 17:19] LABS: Glucose - Point of Care 141 mg/dl (70-99)
[2024-01-20 21:41] LABS: Glucose - Point of Care 191 mg/dl (70-99)
[2024-01-21] VITALS: BP 180/67
[2024-01-21] MEDS: DESENEX/MITRAZOL/ZEASORB 1 APPLIC TOPICAL ×2 (00:42→09:51)
[2024-01-21] MEDS: DESYREL 100 MG PO ×2 (00:42→22:00)
[2024-01-21] MEDS: HEPARIN 5000 UNITS SC ×3 (00:43→16:54)
[2024-01-21] MEDS: LIPITOR 20 MG PO ×2 (00:43→22:00)
[2024-01-21] MEDS: LANTUS 0.04 UNITS SC ×2 (00:45→21:59)
[2024-01-21 05:49] VITALS: BMI 30.3
[2024-01-21 06:30] VITALS: BP 156/57
[2024-01-21 07:00] VITALS: BP 142/60
[2024-01-21 07:38] LABS: Glucose - Point of Care 80 mg/dl (70-99)
[2024-01-21] MEDS: NOVOLOG FLEXPEN-MODERATE RESISTANCE SC ×3 (07:39→16:54)
[2024-01-21] MEDS: TYLENOL 650 MG PO (07:59)
[2024-01-21] MEDS: NEPHROCAP 1 CAPSULE PO (07:59)
[2024-01-21] MEDS: LEXAPRO 15 MG PO (07:59)
[2024-01-21] MEDS: SODIUM CHLORIDE 1 GRAM PO (07:59)
[2024-01-21] MEDS: NORVASC 10 MG PO (07:59)
[2024-01-21] MEDS: PLAVIX 75 MG PO (08:00)
[2024-01-21] MEDS: FEOSOL 325 MG PO (08:00)
[2024-01-21] MEDS: JANUVIA 25 MG PO (08:00)
[2024-01-21] MEDS: PROTONIX 40 MG PO (08:00)
[2024-01-21] MEDS: RENVELA 800 MG PO ×3 (08:01→16:54)
[2024-01-21] MEDS: MIRALAX PO (08:01)
--- NOTE | 2024-01-21 08:51 | PHA.VAN.FU ---
Vancomycin Assessment / Plan
- Assessment
Hemodialysis Schedule: MWF
Concomitant Antimicrobials: cefepime, vanco PO
- Dosing Plan
Dosing by Level: Re-dose today (Vanc 750mg based on level from yesterday)
- Monitoring Plan
No level(s) ordered at this time: consider pre-HD level for Friday
- Follow Up
Pharmacy will continue to follow.
Vancomycin Follow UP
- -
Patient Age: 58
Patient Sex: Male
Vancomycin Day #: 3
Indication: Diabetic Foot
Requesting Provider: Juno Mai
Pertinent Antimicrobial Allergies:
NKDA
Height / Weight:
Height 5 ft 6 in
Actual Weight 85.049 kg
Pertinent Past Medical History: ESRD, BMI ~31, R. BKA, DM
- Vital Signs / Lab Results
Temp Pulse Resp BP Pulse Ox
100.1 F 59 16 156/57 92
01/21/24 07:00 01/21/24 07:59 01/21/24 07:00 01/21/24 07:59 01/21/24 07:00
Lab Results - Hematology
01/19/24 01/20/24
13:11 08:35
WBC 13.4 H 8.3
Lab Results - Chemistry
01/19/24 01/19/24 01/20/24
13:11 14:06 08:35
BUN Cancelled 15 20
Creatinine Cancelled 2.7 H 3.2 H
Estimated Creat Clear Cancelled 32 26
Albumin Cancelled 2.5 L
01/19/24
13:11
Lactic Acid 0.7
Microbiology Results
01/19/24 21:25 MRSA Screen - Final
Nose No Methicillin Resistant Staphylococcus aureus isolated.
01/19/24 13:11 Blood Culture - Preliminary
Blood/Venous No Growth in 24 hours- Final report to follow
01/19/24 13:11 Blood Culture - Preliminary
Blood/Venous No Growth in 24 hours- Final report to follow
Therapeutic Drug Monitoring
Random Vancomycin 13.2 ug/ml 01/20/24 08:35
--- NOTE | 2024-01-21 09:20 | PN.CDI ---
CDI
- -
CDI:
Physician Documentation Request
Admit Date: 01/19/24 15:56
Dear Doctor Eliana ,
Please review the following and provide your response in the progress notes.
Clinical Indicators:
Pt admitted with Acute left Foot Cellulitis secondary to Infected Left Foot Wound
Documented per progress note 01/19, ' Diabetes Mellitus, Svazfcu-Txpgyuxqr-Qkglqgwv glargine and Tradjenta Monitor sugars and continue coverage insulin...'
Please clarify the relationship between these conditions:
Yes, _Left foot Cellulitis __ is related to/associated with Diabetes__.
No, __Left foot Cellulitis _ is not related to/associated with Diabetes ___ but it is due to ___. (Please specify)
Unable to determine
Use of terms such as suspected, likely, concern for, or probable (associated with a specific diagnosis that is being evaluated, monitored, or treated as if it exists) are acceptable and can be coded in the inpatient setting, when documented at the
time of discharge.
Thank you,
Elke Gillespie RN
CDI Specialist
[place] [employer]
Please use your independent medical judgment in providing your response.
--- NOTE | 2024-01-21 09:24 | PN.CDI ---
CDI
- -
CDI:
Physician Documentation Request
Admit Date: 01/19/24 15:56
Dear Doctor Eliana,
Please review the following and provide your response in the progress notes.
Clinical Indicators:
Pt admitted with Acute left Foot Cellulitis secondary to Infected Left Foot Wound
Documented per ED, ' CHF...Today when he checked and he was 20 pounds heavier....Chest x-ray per my interpretation with significant pulmonary edema. Unfortunately patient does not make urine so cannot give Lasix.....'
CXR on admit, ' Acute on chronic interstitial and alveolar cardiogenic pulmonary edema....'
Documented per H&P, ' ESRD on HD grossly volume overload he is anuric volume management with additional dialysis...'
Progress note 01/19, '#ESRD on HD HD on TTS Patient appears grossly volume overloadPatient states he is anuric - Plan for volume management with additional dialysis Monitor Is&Os and Daily Weights...'
Dialysis note 01/19, ' Seen on dialysis. UF 4kg. no issues. VSS....regular HD tomorrow...'
Documented per past visit H&P 02/17/22, ' Chronic diastolic CHF...2D echo 06/06/2021:Normal left ventricular size, wall thickness and systolic function LV ejection fraction is 55-60%�Stage III diastolic dysfunction...'
Please provide further specificity regarding the most likely type and acuity of CHF you are evaluating, treating or monitoring.
Acute on Chronic Diastolic CHF
Acute on Chronic Systolic CHF
Chronic Diastolic CHF
Chronic Systolic CHF
Other ( please specify)
Use of terms such as suspected, likely, concern for, or probable (associated with a specific diagnosis that is being evaluated, monitored, or treated as if it exists) are acceptable and can be coded in the inpatient setting, when documented at the
time of discharge.
Thank you,
Elke Gillespie RN
CDI Specialist
[place] [employer]
Please use your independent medical judgment in providing your response.
--- NOTE | 2024-01-21 09:40 | PN.CDI ---
CDI
- -
CDI:
Physician Documentation Request
Admit Date: 01/19/24 15:56
Dear Doctor Eliana,
Please review the following and provide your response in the progress notes.
Clinical Indicators:
Pt admitted with Acute left Foot Cellulitis secondary to Infected Left Foot Wound
Documented per WOCN note 01/19' L heel with unstageable PI, dry intact brown eschar. Unable to see sacrum at this time- on dialysis, reported stage 2 PI. Patient reports he is not on any special bed at ID, has been bedbound and needs assist with
repositioning....'
Nursing Wound documentation 01/18, Sacrum pressure related /pressure injury stage 2 ...Barrier ointment applied .....'
Physician documentation of the type and location of wounds is required for compliant documentation. Based on the above clinical findings and your assessment, please provide the following in your progress note:
1. Location of the ulcer/wound, including laterality. ( FOR EACH WOUND)
2. Type (etiology) of ulcer/wound:
- Pressure (decubitus) ulcer
- Non-pressure ulcer
- Other
Use of terms such as suspected, likely, concern for, or probable (associated with a specific diagnosis that is being evaluated, monitored, or treated as if it exists) are acceptable and can be coded in the inpatient setting, when documented at the
time of discharge.
Thank you,
Elke Gillespie RN
CDI Specialist
[place] [employer]
Please use your independent medical judgment in providing your response.
*Source: National Pressure Ulcer Advisory Panel (NPUAP)
--- NOTE | 2024-01-21 09:55 | WOUNDNOTE ---
WON RN NOTE: Followed up today along with DORINDA Francisco. R foot blister now draining, able to express serosanguineous drainage, no odor. Skin under blister appears shallow. Dressings changed to foot and heel. L heel no change, patient has pillow under
leg but moves it frequently, not properly offloading heel. Patient willing to try offloading heel boot. Called [facility] for supply and applied to L foot with wedge to prevent medial rotation. Patient states at Rehab he uses prosthetic to R BKA and
sneaker for L foot when ambulating. Does not have offloading L heel shoe but not practical to have Darco half shoe for ambulating. TBI is 0.58 and WALKER non compressible, monophasic wave forms to dorsalis pedis. Patient states vascular saw him this
morning and plan to do an angioplasty next few days. R BKA stump intact and sacrum with MASD no pressure injuries visible, denuded excoriated skin. Patient able to turn with assist. Air overlay applied to bed. Will confirm the above with hospitalist
and updated nurse Vini. Will follow as needed.
--- NOTE | 2024-01-21 10:12 | W.PN.HOSP.TC ---
Addendum entered and electronically signed by Grecia Monroy MD 01/21/24 14:35:
Addendum
Called to evaluate both upper extremities swelling, R.L
Per pt, chronic issues at times and swelling goes up and down depending on HD and position. He denies pain or tingling.
Right arm/ hand/ fingers with swelling but no erythema or tenderness noted. radial pulse present B/L.
Will monitor for now
d/w nurse
End
Original Note:
Today's Communication/Plan
-
.
Assessment / Plan
Assessment / Plan
Physical Exam
General: Comfortable and Conversant
HEENT: Anicteric and Moist mucous membranes
Respiratory: Non Labored Respirations and Decreased Breath Sounds (Bilateral bases). Hemodialysis catheter right upper chest: no erythema
Cardiac: S1/S2, Regular Rhythm and Murmur
GI: Soft and Non Tender
Musculoskeletal: No Clubbing, No Cyanosis, Edema, Left Lower Extremity and Other (Right BKA)
Skin: Warm, Dry and Other (Black eschar left Achilles region with foul smell noted; Large dark colored bullae across plantar aspect of left foot with surrounding erythema and increased warmth to touch)
Neurological: AO x 3
Psych: calm
# Acute left Foot Cellulitis secondary to Infected Left Foot Wound associated with Diabetes
Blister on plantar surface
Not toxic appearing
-Continue vancomycin and cefepime. WBC normalized.
-Monitor temp curve. I think temp one time of 100.5 might be not very significant. No tachycardia
-Consulted vascular/ ID and Wound Care
#Chronic diastolic (congestive) heart failure
#L heel with unstageable PI, dry intact brown eschar/ Pressure (decubitus) ulcer
Sacrum : no pressure injuries visible, denuded excoriated skin
# Hypokalemia, replaced through HD
# Hyponatremia
#ESRD on HD
HD on MWF
-Patient appeared grossly volume overload
-Monitor Is&Os and Daily Weights
Diabetes Mellitus, Insulin-Dependent
-Continue glargine and Tradjenta
-Monitor sugars and continue coverage insulin
Hx CVA/TIA
-Continue Plavix
Essential Hypertension
-Continue amlodipine
Hyperlipidemia
-Continue atorvastatin
Depression
-Continue escitalopram and trazodone
DVT proph: SC Heparin
Code Status: Full Code
Total time spent to see the patient, examine the patient on the floor, review data and lab results, discuss treatment plan with patient, nursing staff around 55 minutes
Anticipated Discharge: > 48 hours
Subjective/Interval History
-
Date of Service: January 21, 2024
No chest pain
No sob
Objective Data
-
Labs:
Laboratory Results
01/21/24
07:00
WBC Pending
Hgb Pending
Hct Pending
Plt Count Pending
Sodium Pending
Potassium Pending
Chloride Pending
Carbon Dioxide Pending
Vital Signs:
Vital Signs
Temp Pulse Resp BP Pulse Ox
100.1 F 59 16 156/57 92
01/21/24 07:00 01/21/24 07:59 01/21/24 07:00 01/21/24 07:59 01/21/24 07:00
I&O
01/20/24 01/21/24 01/22/24
06:59 06:59 06:59
Intake Total 960 / 960 1200 / 1200
Balance 960 / 960 1200 / 1200
[2024-01-21] MEDS: FIRVANQ 125 MG PO (10:13)
--- NOTE | 2024-01-21 10:45 | VATNOTE ---
During routine assessment, +4 pitting edema noted to RUE compared to LUE, which appeared to be +1 or +2 pitting edema. Discussed with PCN, peripheral vascular ultrasound of RUE recommended. PCN will discuss with .
[2024-01-21 12:18] LABS: Glucose - Point of Care 94 mg/dl (70-99)
[2024-01-21 13:02] LABS: Hematocrit 29.2 % (39.0-52.0); Hemoglobin 9.8 g/dL (13.0-18.0); Mean Corp Hgb Conc. 33.6 g/dL (33.0-37.0); Mean Corpuscular Hgb 28.3 pg (27.0-31.0); Mean Corpuscular Volume 84.4 fL (80.0-94.0); Platelet Count 251 10^3/uL (130-400); Red Blood Cell Count 3.46 10^6/uL (4.70-6.10); Red Cell Dist. Width 15.1 % (11.5-14.5); White Blood Cell Count 7.2 10^3/uL (4.8-10.8)
[2024-01-21 13:17] LABS: Carbon Dioxide 25 mmol/L (22-30); Chloride 95 mmol/L (98-107); Potassium 3.9 mmol/L (3.5-5.1); Sodium 132 mmol/L (135-145)
--- NOTE | 2024-01-21 13:34 | W.PN.ID1 ---
Date of Service
Date of Service: January 21, 2024
Today's Communication
Continue Vancomycin and cefepime for now.
Assessment / Plan
# Acute left foot cellulitis
# Left heel non-healing wound with necrotic tissue
# Fever -resolved
# Leukocytosis - resolved
- Continue Vancomycin and cefepime
- PAD work-up as per Vascular
- Follow temps/wbc
# hx of C. diff x 2
- Continue prophylactic Vanco 125mg po daily while on systemic abx's
# Anasarca
# ESRD on HD
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
Diabetes mellitus
Neuropathy
End-stage renal disease on hemodialysis via HD catheter
Hypertension
CVA
Depression
hx C. diff x2 (2021)
Left humerus fracture
Right BKA
Left upper extremity AV fistula placement
Chief Complaint
-: Cellulitis
Subjective / Review of Systems
Had loose stool x 1.
Vital Signs / Physical Exam
Vital Signs
Vital Signs
Temp Pulse Resp BP Pulse Ox
100.1 F 59 16 156/57 96
01/21/24 07:00 01/21/24 07:59 01/21/24 07:00 01/21/24 07:59 01/21/24 13:09
Physical Exam
Constitutional: No Acute Distress and Comfortable
Pulmonary: Clear
Gastrointestinal: Soft, Non Tender and Non Distended
Wound: Other (Reviewed today's wound photos: left foot plantar large blister has opened with necrotic tissue underneath, + surrounding erythema; left heel necrotic wound)
Objective Data
Lab Data
Lab Results
01/21/24 12:42
01/21/24 12:42
Estimated Creat Clear 26 ml/min 01/20/24 08:35
Lactic Acid 0.7 mmol/L (0.7-2.0) 01/19/24 13:11
Total Bilirubin 0.9 mg/dl (0.2-1.3) 01/19/24 14:06
AST 18 U/L (17-59) 01/19/24 14:06
ALT 14 U/L (0-50) 01/19/24 14:06
Alkaline Phosphatase 174 U/L (38-126) H 01/19/24 14:06
Most recent labs reviewed.
Micro Results:
01/19/24 13:11 Blood Culture - Preliminary
Blood/Venous No Growth in 48 hours- Final report to follow
01/19/24 13:11 Blood Culture - Preliminary
Blood/Venous No Growth in 48 hours- Final report to follow
01/19/24 21:25 MRSA Screen - Final
Nose No Methicillin Resistant Staphylococcus aureus isolated.
01/19/24 Foot XRAY: No fracture, and no radiographic evidence of osteomyelitis.
01/19/24 L tib/fib xray: No osseous abnormality appreciated.
01/19/24 CXR: Small to moderate-sized bilateral pleural effusions. Large left lower lobe airspace consolidation and moderate airspace opacity in the right lower lobe. Diagnostic possibilities are (1) compressive atelectasis in the setting of pleural
effusions or (2) bilateral lower lobe pneumonia (if there are signs/symptoms of pulmonary infection). Acute on chronic interstitial and alveolar cardiogenic pulmonary edema.
[2024-01-21] MEDS: RETACRIT 4000 UNITS IV (13:41)
[2024-01-21] MEDS: VANCOCIN 150 IV (15:20)
--- NOTE | 2024-01-21 15:51 | W.PN.NEPH.HD ---
Assessment
-
pt seen during HD
vitals stable , SBP 145 at current UF 4kg
abx per ID
may need extra UF
await vasc intervention of leg
AVF recent angioplasty on 11/26-await vasc clearance to use
CVC functions well
Progress Note - Hemodialysis
-
Date of Service: January 21, 2024
Duration: 45 minutes and 3 hours
Potassium Bath: 3
Calcium Bath: 2.5
Opti-Dialyzer: 160
Ultrafiltration: Other (3.5-4kg)
Blood Flow: 400
Dialysate Flow: 600
Heparin: no
EPO: 4000
[2024-01-21 16:06] VITALS: BP 145/67
[2024-01-21 16:08] LABS: Glucose - Point of Care 112 mg/dl (70-99)
[2024-01-21] MEDS: HEPARIN 3200 UNITS INTRACATH (16:37)
[2024-01-21] MEDS: MAXIPIME 1000 MG IV (17:14)
[2024-01-21] MEDS: STERILE WATER FOR INJECTION 10 ML IV (17:15)
[2024-01-21] MEDS: DESENEX/MITRAZOL/ZEASORB TOPICAL (22:00)
[2024-01-21 22:14] LABS: Glucose - Point of Care 124 mg/dl (70-99)
[2024-01-21 23:50] VITALS: BP 153/57
[2024-01-22] VITALS (11 sets, daily range): BP systolic 119–171; BP diastolic 48–81; BMI 29.8
[2024-01-22] MEDS: HEPARIN SC (01:01)
[2024-01-22 05:59] LABS: Hemoglobin 10.2 g/dL (13.0-18.0); Mean Corpuscular Hgb 29.1 pg (27.0-31.0); Mean Corpuscular Volume 85.5 fL (80.0-94.0); Platelet Count 250 10^3/uL (130-400); Red Blood Cell Count 3.51 10^6/uL (4.70-6.10); Red Cell Dist. Width 15.1 % (11.5-14.5); White Blood Cell Count 6.5 10^3/uL (4.8-10.8)
[2024-01-22 05:59] LABS: Glucose - Point of Care 124 mg/dl (70-99)
[2024-01-22 06:02] LABS: INR 1.61; PT 19.2 Sec (11.4-14.6)
[2024-01-22 06:03] LABS: APTT 44.6 Sec (23.4-35.0)
[2024-01-22 06:14] LABS: Blood Urea Nitrogen 21 mg/dl (9-20); Calcium 7.6 mg/dl (8.4-10.2); Carbon Dioxide 26 mmol/L (22-30); Chloride 98 mmol/L (98-107); Estimated Creatinine Clearance 29 ml/min; Glucose 119 mg/dl (70-99); Potassium 3.9 mmol/L (3.5-5.1); Sodium 135 mmol/L (135-145); eGFR 24.46
[2024-01-22] MEDS: DESENEX/MITRAZOL/ZEASORB 1 APPLIC TOPICAL ×2 (08:26→21:33)
[2024-01-22] MEDS: NOVOLOG FLEXPEN-MODERATE RESISTANCE SC ×3 (08:26→19:23)
[2024-01-22] MEDS: LEXAPRO 15 MG PO (08:29)
[2024-01-22] MEDS: NEPHROCAP 1 CAPSULE PO (08:29)
[2024-01-22] MEDS: HEPARIN 5000 UNITS SC ×2 (08:30→17:01)
[2024-01-22] MEDS: PROTONIX 40 MG PO (08:30)
[2024-01-22] MEDS: JANUVIA 25 MG PO (08:34)
[2024-01-22] MEDS: NORVASC 10 MG PO (08:34)
[2024-01-22] MEDS: FEOSOL 325 MG PO (08:34)
[2024-01-22] MEDS: PLAVIX 75 MG PO (08:34)
[2024-01-22] MEDS: RENVELA 800 MG PO ×3 (08:35→17:01)
[2024-01-22] MEDS: SODIUM CHLORIDE 1 GRAM PO (08:35)
[2024-01-22] MEDS: MIRALAX PO (08:36)
[2024-01-22] MEDS: FIRVANQ 125 MG PO (08:39)
--- NOTE | 2024-01-22 09:58 | PHA.VAN.FU ---
Vancomycin Assessment / Plan
- Assessment
Hemodialysis Schedule: MWF
Last Hemodialysis performed: 01/20
WBC's are: WNL
In the past 24 hrs, patient has been: Afebrile
Concomitant Antimicrobials: cefepime
- Dosing Plan
Dosing by Level: Hold off on dosing today
- Monitoring Plan
Random Level: pre-HD 01/22
- Follow Up
Pharmacy will continue to follow.
Vancomycin Follow UP
- -
Patient Age: 58
Patient Sex: Male
Vancomycin Day #: 4
Indication: Diabetic Foot
Requesting Provider: Juno Mai / Dr. Persaud
Pertinent Antimicrobial Allergies:
NKDA
Height / Weight:
Height 5 ft 6 in
Actual Weight 83.659 kg
Pertinent Past Medical History: ESRD, BMI ~31, R. BKA, DM
- Vital Signs / Lab Results
Temp Pulse Resp BP Pulse Ox
98.7 F 54 16 171/64 98
01/22/24 08:00 01/22/24 08:34 01/22/24 08:00 01/22/24 08:34 01/22/24 08:00
Lab Results - Hematology
01/19/24 01/20/24 01/21/24
13:11 08:35 12:42
WBC 13.4 H 8.3 7.2
01/22/24
05:36
WBC 6.5
Lab Results - Chemistry
01/19/24 01/19/24 01/20/24
13:11 14:06 08:35
BUN Cancelled 15 20
Creatinine Cancelled 2.7 H 3.2 H
Estimated Creat Clear Cancelled 32 26
Albumin Cancelled 2.5 L
01/22/24
05:36
BUN 21 H
Creatinine 2.9 H
Estimated Creat Clear 29
Albumin
01/19/24
13:11
Lactic Acid 0.7
Microbiology Results
01/19/24 13:11 Blood Culture - Preliminary
Blood/Venous No Growth in 48 hours- Final report to follow
01/19/24 13:11 Blood Culture - Preliminary
Blood/Venous No Growth in 48 hours- Final report to follow
01/19/24 21:25 MRSA Screen - Final
Nose No Methicillin Resistant Staphylococcus aureus isolated.
Therapeutic Drug Monitoring
Random Vancomycin 13.2 ug/ml 01/20/24 08:35
--- NOTE | 2024-01-22 10:14 | W.PN.HOSP.TC ---
Today's Communication/Plan
-
NPO for angiogram
ok to give oral medications
Assessment / Plan
Assessment / Plan
Physical Exam
General: Comfortable and Conversant
HEENT: Anicteric and Moist mucous membranes
Respiratory: Non Labored Respirations and Decreased Breath Sounds (Bilateral bases). Hemodialysis catheter right upper chest: no erythema
Cardiac: S1/S2, Regular Rhythm and Murmur
GI: Soft and Non Tender
Musculoskeletal: No Clubbing, No Cyanosis, Edema, Left Lower Extremity and Other (Right BKA)
Skin: Warm, Dry and Other (Black eschar left Achilles region with foul smell noted; Large dark colored bullae across plantar aspect of left foot with surrounding erythema and increased warmth to touch)
Neurological: AO x 3
Psych: calm
# Acute left Foot Cellulitis secondary to Infected Left Foot Wound associated with Diabetes and significant PVD
Blister on plantar surface
Not toxic appearing
Blood culture No growth
-Continue vancomycin and cefepime. WBC normalized. Prophylactic oral Vancomycin
-Monitored temp curve. I think temp one time of 100.5 might be not valid. No tachycardia
For angiogram today
-Consulted vascular/ ID and Wound Care, appreciate help
# Swelling note din both upper extremities
c/w edema low albumin and lack of activity. C/W effective HD.
#Chronic diastolic (congestive) heart failure
#L heel with unstageable PI, dry intact brown eschar/ Pressure (decubitus) ulcer
Sacrum : no pressure injuries visible, denuded excoriated skin
# Hypokalemia, replaced through HD
# Hyponatremia
#ESRD on HD
HD on MWF
-Patient appeared grossly volume overload
-Monitor Is&Os and Daily Weights
Diabetes Mellitus, Insulin-Dependent
-Continue glargine and Tradjenta
-Monitor sugars and continue coverage insulin
Hx CVA/TIA
-Continue Plavix
Essential Hypertension
-Continue amlodipine
Hyperlipidemia
-Continue atorvastatin
Depression
-Continue escitalopram and trazodone
DVT proph: SC Heparin
Code Status: Full Code
Total time spent to see the patient, examine the patient on the floor, review data and lab results, discuss treatment plan with patient, nursing staff around 55 minutes
Anticipated Discharge: > 48 hours
Subjective/Interval History
-
Date of Service: January 22, 2024
No chest pain
No sob
Objective Data
-
Labs:
Laboratory Results
01/22/24
05:36
WBC 6.5
Hgb 10.2 L
Hct 30.0 L
Plt Count 250
PT 19.2 H
INR 1.61
APTT 44.6 H
Sodium 135
Potassium 3.9
Chloride 98
Carbon Dioxide 26
BUN 21 H
Creatinine 2.9 H
Glucose 119 H
Calcium 7.6 L
Vital Signs:
Vital Signs
Temp Pulse Resp BP Pulse Ox
98.7 F 54 16 171/64 98
01/22/24 08:00 01/22/24 08:34 01/22/24 08:00 01/22/24 08:34 01/22/24 08:00
I&O
01/21/24 01/22/24 01/23/24
06:59 06:59 06:59
Intake Total 1200 / 1200 120 / 120
Balance 1200 / 1200 120 / 120
--- NOTE | 2024-01-22 10:52 | W.PN.ID1 ---
Date of Service
Date of Service: January 22, 2024
Today's Communication
DC IV Vanco.
Continue cefepime.
Assessment / Plan
# Acute left foot cellulitis
# Left heel non-healing wound with necrotic tissue
# Fever -resolved
# Leukocytosis - resolved
# DM
# ESRD on HD
- Continue cefepime
- DC VAncomycin IV
- For angiogram as per Vascular
- Continue C. diff prophylactic Vanco 125mg po daily while on systemic abx's
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
Diabetes mellitus
Neuropathy
End-stage renal disease on hemodialysis via HD catheter
Hypertension
CVA
Depression
hx C. diff x2 (2021)
Left humerus fracture
Right BKA
Left upper extremity AV fistula placement
Chief Complaint
-: Cellulitis
Subjective / Review of Systems
No new complaints.
Vital Signs / Physical Exam
Vital Signs
Vital Signs
Temp Pulse Resp BP Pulse Ox
98.7 F 54 16 171/64 98
01/22/24 08:00 01/22/24 08:34 01/22/24 08:00 01/22/24 08:34 01/22/24 08:00
Physical Exam
Constitutional: No Acute Distress
Gastrointestinal: Soft, Non Tender and Non Distended
Extremities: Edema (Decreasing anasarca)
Objective Data
Lab Data
Lab Results
01/22/24 05:36
01/22/24 05:36
PT 19.2 Sec (11.4-14.6) H 01/22/24 05:36
INR 1.61 01/22/24 05:36
APTT 44.6 Sec (23.4-35.0) H 01/22/24 05:36
Estimated Creat Clear 29 ml/min 01/22/24 05:36
Lactic Acid 0.7 mmol/L (0.7-2.0) 01/19/24 13:11
Total Bilirubin 0.9 mg/dl (0.2-1.3) 01/19/24 14:06
AST 18 U/L (17-59) 01/19/24 14:06
ALT 14 U/L (0-50) 01/19/24 14:06
Alkaline Phosphatase 174 U/L (38-126) H 01/19/24 14:06
Most recent labs reviewed.
Micro Results:
01/19/24 13:11 Blood Culture - Preliminary
Blood/Venous No Growth in 48 hours- Final report to follow
01/19/24 13:11 Blood Culture - Preliminary
Blood/Venous No Growth in 48 hours- Final report to follow
01/19/24 21:25 MRSA Screen - Final
Nose No Methicillin Resistant Staphylococcus aureus isolated.
01/19/24 Foot XRAY: No fracture, and no radiographic evidence of osteomyelitis.
01/19/24 L tib/fib xray: No osseous abnormality appreciated.
01/19/24 CXR: Small to moderate-sized bilateral pleural effusions. Large left lower lobe airspace consolidation and moderate airspace opacity in the right lower lobe. Diagnostic possibilities are (1) compressive atelectasis in the setting of pleural
effusions or (2) bilateral lower lobe pneumonia (if there are signs/symptoms of pulmonary infection). Acute on chronic interstitial and alveolar cardiogenic pulmonary edema.
[2024-01-22] MEDS: TYLENOL 650 MG PO (11:42)
[2024-01-22 12:04] LABS: Glucose - Point of Care 124 mg/dl (70-99)
--- NOTE | 2024-01-22 12:26 | W.PN.NEPH.PH ---
Today's Communication / Plan
-
HD tomorrow
Assessment/Plan
-
Assessment
ESRD
Hypertension
volume overload
AV fistula left upper arm
Left lower leg wound
Diabetes mellitus type 2
Rt AKA
Plan
HD tomorrow
abx per ID
Antibiotics per primary team
Angiogram of leg today
Also await vasc clearance for AVF use, s/p angioplasty in Sep
strict renal diet and FR
-
-
Date of Service: January 22, 2024
CC / HPI / ROS
-
Chief Complaint:
ESRD
History of Present Illness:
HD yesterday, wt decreasing
no fever, hb stable 10.2
sodium normal 135
Review of Systems:
no cp or sob
edema improving
Labs
-
Labs:
WBC 6.5 10^3/uL (4.8-10.8) 01/22/24 05:36
RBC 3.51 10^6/uL (4.70-6.10) L 01/22/24 05:36
Hgb 10.2 g/dL (13.0-18.0) L 01/22/24 05:36
Hct 30.0 % (39.0-52.0) L 01/22/24 05:36
Plt Count 250 10^3/uL (130-400) 01/22/24 05:36
Sodium 135 mmol/L (135-145) 01/22/24 05:36
Potassium 3.9 mmol/L (3.5-5.1) 01/22/24 05:36
Chloride 98 mmol/L (98-107) 01/22/24 05:36
Carbon Dioxide 26 mmol/L (22-30) 01/22/24 05:36
BUN 21 mg/dl (9-20) H 01/22/24 05:36
Creatinine 2.9 mg/dL (0.7-1.3) H 01/22/24 05:36
eGFR 24.46 01/22/24 05:36
Glucose 119 mg/dl (70-99) H 01/22/24 05:36
Calcium 7.6 mg/dl (8.4-10.2) L 01/22/24 05:36
Dyo-C-Pxmfaxlvmft Pept > 80053 pg/ml 01/19/24 14:06
Albumin 2.5 g/dl (3.5-5.0) L 01/19/24 14:06
Physical Exam
-
Vital Signs:
Vital Signs
Temp Pulse Resp BP Pulse Ox
98.7 F 54 16 171/64 98
01/22/24 08:00 01/22/24 08:34 01/22/24 08:00 01/22/24 08:34 01/22/24 08:00
Cardiovascular:: Regular rate and rhythm
Respiratory:: Bilateral: CTA
Lung Excursion:: Normal
Abdomen:: Nontender and Soft
Extremity Edema:: +3: Left:
Mack Catheter: No
Other Findings::
rt AKA
--- NOTE | 2024-01-22 14:33 | W.SUR.POST ---
Surgical Immediate Post Op
Note
Pre Op Diagnosis: PAD
Post Op Diagnosis: PAD
Procedure Performed: LLE arteriogram, left popliteal artery balloon angioplasty
Primary Surgeon: Tu
Anesthesia: local and sedation
Estimated Blood Loss: <2cc
Fluids: See anesthesia flow sheet
Drains/Shunts: none
Specimens/Cultures: none
Doppler/Duplex/Angio (Y/N): Y
Complications: None
Operative Findings: +PT signal
--- NOTE | 2024-01-22 14:51 | OR.RPT ---
Operative Report
Operative Report
PROCEDURE DATE: 01/22/2024
Preoperative diagnosis: Chronic limb threatening ischemia left lower extremity.
Postoperative diagnosis: Same
Procedure:
1. Duplex assisted right common femoral artery cannulation.
2. Aortogram and pelvic angiogram.
3. Left lower extremity arteriogram with third order vessel catheterization of left peroneal artery via right common femoral artery puncture.
4. Balloon angioplasty of below the knee popliteal artery stenosis with a 4 mm x 4 cm Bard Lutonix drug-coated balloon.
5. Balloon angioplasty of below the knee popliteal artery stenosis with a 5 mm x 4 cm standard balloon.
6. Right femoral angiogram and Pro-glide percutaneous suture closure right common femoral artery puncture site.
7. Supervision and interpretation.
Surgeon: Tu
Printing Supervisor: None
Complications:[]
Anesthesia: Local, sedation
Fluoroscopy:
7.4 min
26 mGy
7.08 Gy.cm2
Indications for procedure:
58-year-old male with risk factors including end-stage renal disease, diabetes. Developed chronic nonhealing left lower extremity wounds (left foot). Risk/benefits/alternatives of angiography were fully discussed. Patient understood all wished to
proceed.
Description of procedure:
Patient was identified, brought to the operating room. Placed on the table in the supine position. After the adequate administration of anesthesia, the patient was prepped and draped in the standard surgical fashion. A standard preoperative
timeout was undertaken and everybody was in agreement with the plan.
The right common femoral artery was accessed with a micropuncture kit under direct duplex ultrasound guidance. A 5 Ugandan sheath was then advanced over a 0.035 inch wire, and a roper's hook catheter was advanced into the abdominal aorta.
Aortogram and pelvic angiogram was obtained. Findings as follows:
Patent distal infrarenal aorta and left common and external iliac arteries without significant stenosis noted. Right iliac system not as well-visualized on this projection.
Using a floppy angled hydrophilic wire, the left common femoral artery was cannulated and the catheter was advanced. Left lower extremity arteriogram was obtained. Findings as follows:
Common femoral artery: Patent with no significant stenosis.
Profunda femoris artery: Patent with no significant stenosis.
Superficial femoral artery: Patent with eccentric calcified plaque and some mild luminal irregularities but no significant stenosis.
Popliteal artery: Patent with mild luminal irregularities and below the knee severe stenosis at the very distal below the knee popliteal artery just proximal to the anterior tibial artery takeoff.
Anterior tibial artery: Patent with no significant stenosis. Cross the ankle to become the dorsalis pedis, but weak filling through the dorsalis pedis (no filling in the arch).
Tibial peroneal trunk: Patent with no significant stenosis.
Peroneal artery: Patent but relatively small and fairly diminutive distally.
Posterior tibial artery: Patent with no significant stenosis. Cross the ankle to flow into the foot.
At this point, I cannulated the superficial femoral artery and then exchanged for a Storq wire and an up and over 5 Ugandan sheath. Patient was given 5000's of intravenous heparin. Under roadmap assisted guidance, using a flopping of hydrophilic
Glidewire and a CXI catheter, I traversed the area of severe popliteal artery stenosis below the knee. I cannulated into the peroneal artery and then exchanged back for a Storq wire. I then performed balloon angioplasty with a drug-coated 4 mm x
40 mm Bard Lutonix balloon with standard prolonged inflation. There was a waist that resolved nicely with the inflation of the balloon. Completion angiogram demonstrated definite improvement with good flow, but still some residual stenosis I
therefore then ballooned with a 5 mm balloon with prolonged inflation. Completion angiogram demonstrated good result with no residual dissection, mild residual stenosis. I did not feel that a stent could be placed in this vicinity due to the
immediate takeoff of the anterior tibial artery. Flow through the runoff was preserved nicely. At this point I was satisfied. I withdrew my sheath to the right external iliac artery. Right femoral angiogram demonstrated good puncture in the
right common femoral artery. I therefore then used a Pro-glide percutaneous suture to close the common femoral artery puncture site with concomitant removal of the sheath and wire. Hemostasis was fully achieved. Patient tolerated procedure well.
He had excellent dopplerable PT signal upon completion.
[2024-01-22 15:03] LABS: Glucose - Point of Care 100 mg/dl (70-99)
--- NOTE | 2024-01-22 16:20 | PTCARENOTE ---
Received pt from PACU. Tape and gauze covering puncture site in left groin. Area clean dry and intact. VSS. Pt diaphoretic but afebrile. Bilateral popliteal pulses heard on doppler. HOB flat. Will continue to monitor pt.
[2024-01-22 16:45] LABS: Glucose - Point of Care 118 mg/dl (70-99)
[2024-01-22] MEDS: LOW STRENGTH ASPIRIN 81 MG PO (17:01)
[2024-01-22] MEDS: MAXIPIME 1000 MG IV (17:04)
[2024-01-22] MEDS: STERILE WATER FOR INJECTION 10 ML IV (17:04)
[2024-01-22 21:33] LABS: Glucose - Point of Care 177 mg/dl (70-99)
[2024-01-22] MEDS: DESYREL 100 MG PO (21:33)
[2024-01-22] MEDS: LANTUS 0.04 UNITS SC (21:33)
[2024-01-22] MEDS: LIPITOR 20 MG PO (21:33)
[2024-01-23] MEDS: HEPARIN SC (00:05)
[2024-01-23 03:15] VITALS: BP 158/81
[2024-01-23 06:00] VITALS: BMI 30.1
[2024-01-23 07:45] VITALS: BP 149/65
[2024-01-23] MEDS: DESENEX/MITRAZOL/ZEASORB 1 APPLIC TOPICAL ×2 (08:15→21:15)
[2024-01-23 08:18] LABS: Glucose - Point of Care 231 mg/dl (70-99)
[2024-01-23] MEDS: RENVELA 800 MG PO ×3 (08:18→17:02)
[2024-01-23] MEDS: HEPARIN 5000 UNITS SC ×3 (08:18→23:11)
[2024-01-23] MEDS: PLAVIX 75 MG PO (08:19)
[2024-01-23] MEDS: NEPHROCAP 1 CAPSULE PO (08:19)
[2024-01-23] MEDS: JANUVIA 25 MG PO (08:19)
[2024-01-23] MEDS: LEXAPRO 15 MG PO (08:20)
[2024-01-23] MEDS: PROTONIX 40 MG PO (08:21)
[2024-01-23] MEDS: FEOSOL 325 MG PO (08:22)
[2024-01-23] MEDS: LOW STRENGTH ASPIRIN 81 MG PO (08:22)
[2024-01-23] MEDS: FIRVANQ 125 MG PO (08:22)
[2024-01-23] MEDS: SODIUM CHLORIDE 1 GRAM PO (08:22)
[2024-01-23] MEDS: NOVOLOG FLEXPEN-MODERATE RESISTANCE 3 UNITS SC (08:26)
--- NOTE | 2024-01-23 09:42 | W.PN.VS ---
Today's Communication / Plan
-
Discussed with Dr. Mae
Assessment/Plan
-
POD 1
Left lower extremity arteriogram
Balloon angioplasty of below the knee popliteal artery stenosis with a 4 mm x 4 cm Bard Lutonix drug-coated balloon.
Balloon angioplasty of below the knee popliteal artery stenosis with a 5 mm x 4 cm standard balloon.
Right femoral angiogram and Pro-glide percutaneous suture closure right common femoral artery puncture site.
Plan:
-Groin site stable-May remove Tegaderm and gauze today and leave open to air
-Vascular follow up added to DC instructions
-Per SATHYA Benitez to access AVF for HD
Subjective Data
-
Date of Service: January 23, 2024
Patient seen at bedside this a.m. Patient resting comfortably. Patient offers no complaints at this time. No events overnight.
Objective Data
-
Vital Signs
Temp Pulse Resp BP Pulse Ox
97.7 F 49 18 149/65 97
01/23/24 07:45 01/23/24 07:45 01/23/24 07:45 01/23/24 07:45 01/23/24 07:45
Intake and Output
01/22/24 01/23/24 01/24/24
06:59 06:59 06:59
Intake Total 120 / 120 625 / 625
Balance 120 / 120 625 / 625
Intake:
Oral fluids 120 / 120 600 / 600
IV fluids (Total) 25 / 25
NSS 25 / 25
Calcium 7.6 mg/dl (8.4-10.2) L 01/22/24 05:36
Total Bilirubin 0.9 mg/dl (0.2-1.3) 01/19/24 14:06
AST 18 U/L (17-59) 01/19/24 14:06
ALT 14 U/L (0-50) 01/19/24 14:06
Alkaline Phosphatase 174 U/L (38-126) H 01/19/24 14:06
Total Protein 5.4 g/dl (6.3-8.2) L 01/19/24 14:06
Albumin 2.5 g/dl (3.5-5.0) L 01/19/24 14:06
Physical Exam
-
AAOx3
No tachypnea on room air
No tachycardia
Groin site clean, dry, intact, soft, flat
Foot warm, pink, wounds unchanged
[2024-01-23 10:29] LABS: Glucose - Point of Care 286 mg/dl (70-99)
[2024-01-23] MEDS: MIRALAX PO (10:42)
[2024-01-23] MEDS: NORVASC PO (10:42)
--- NOTE | 2024-01-23 10:50 | W.PN.HOSP.TC ---
Today's Communication/Plan
-
c/w Cefepime for now
c/w aspirin , he is already on Plavix, will confirm with vascular
Assessment / Plan
Assessment / Plan
Physical Exam
General: Comfortable and Conversant
HEENT: Anicteric and Moist mucous membranes
Respiratory: Non Labored Respirations and Decreased Breath Sounds (Bilateral bases). Hemodialysis catheter right upper chest: no erythema
Cardiac: S1/S2, Regular Rhythm and Murmur
GI: Soft and Non Tender
Musculoskeletal: No Clubbing, No Cyanosis, Edema, Left Lower Extremity and Other (Right BKA)
Skin: Warm, Dry and Other (Black eschar left Achilles region with foul smell noted; Large dark colored bullae across plantar aspect of left foot with surrounding erythema and increased warmth to touch)
Neurological: AO x 3
Psych: calm
# Acute left Foot Cellulitis secondary to Infected Left Foot Wound associated with Diabetes and significant PVD
Blister on plantar surface
Not toxic appearing
Blood culture No growth
- s/p vancomycin and cefepime. c/w cefepime only for now. WBC normalized. Prophylactic oral Vancomycin
-Monitored temp curve. I think temp one time of 100.5 might be not valid. No tachycardia
-Consulted vascular/ ID and Wound Care, appreciate help
# Severe PVF
s/p
Left lower extremity arteriogram
Balloon angioplasty of below the knee popliteal artery stenosis with a 4 mm x 4 cm Bard Lutonix drug-coated balloon.
Balloon angioplasty of below the knee popliteal artery stenosis with a 5 mm x 4 cm standard balloon.
Right femoral angiogram and Pro-glide percutaneous suture closure right common femoral artery puncture site.
Appreciate vascular help: for OP follow up
# Swelling noted in both upper extremities
c/w edema low albumin and lack of activity. C/W effective HD.
#Chronic diastolic (congestive) heart failure
#L heel with unstageable PI, dry intact brown eschar/ Pressure (decubitus) ulcer
Sacrum : no pressure injuries visible, denuded excoriated skin
# Hypokalemia, replaced through HD
# Hyponatremia
#ESRD on HD
HD on MWF
-Patient appeared grossly volume overload
-Monitor Is&Os and Daily Weights
#Diabetes Mellitus, Insulin-Dependent
-Continue glargine and Tradjenta
-Monitor sugars and continue coverage insulin
Hx CVA/TIA
-Continue Plavix
Essential Hypertension
-Continue amlodipine
Hyperlipidemia
-Continue atorvastatin
Depression
-Continue escitalopram and trazodone
DVT proph: SC Heparin
Code Status: Full Code
Total time spent to see the patient, examine the patient on the floor, review data and lab results, discuss treatment plan with patient, nursing staff around 55 minutes
Anticipated Discharge: Within 24 hours
Subjective/Interval History
-
Date of Service: January 23, 2024
No chest pain
No abd pain
Objective Data
-
Labs:
Laboratory Results
01/23/24
06:00
WBC Pending
Hgb Pending
Hct Pending
Plt Count Pending
Sodium Pending
Potassium Pending
Chloride Pending
Carbon Dioxide Pending
BUN Pending
Creatinine Pending
Glucose Pending
Calcium Pending
Vital Signs:
Vital Signs
Temp Pulse Resp BP Pulse Ox
97.7 F 49 18 149/65 97
01/23/24 07:45 01/23/24 07:45 01/23/24 07:45 01/23/24 07:45 01/23/24 07:45
I&O
01/22/24 01/23/24 01/24/24
06:59 06:59 06:59
Intake Total 120 / 120 625 / 625
Balance 120 / 120 625 / 625
--- NOTE | 2024-01-23 11:25 | W.PN.ID1 ---
Date of Service
Date of Service: January 23, 2024
Today's Communication
- At time of discharge, transition to cefuroxime 500mg po q24 hours through 01/29/24
- Continue C. diff prophylactic Vanco 125mg po daily through 02/03/24.
Assessment / Plan
# Acute left foot cellulitis - improving
# Left heel non-healing wound with necrotic tissue
# Fever -resolved
# Leukocytosis - resolved
# hx of C. diff x 2
# DM
# ESRD on HD
- 01/22/24 s/p LLE balloon angioplasty
- Continue cefepime
- At time of discharge, transition to cefuroxime 500mg po q24 hours through 01/29/24
- Continue C. diff prophylactic Vanco 125mg po daily through 02/03/24.
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
Diabetes mellitus
Neuropathy
End-stage renal disease on hemodialysis via HD catheter
Hypertension
CVA
Depression
hx C. diff x2 (2021)
Left humerus fracture
Right BKA
Left upper extremity AV fistula placement
Chief Complaint
-: Cellulitis
Subjective / Review of Systems
Body swelling better.
Vital Signs / Physical Exam
Vital Signs
Vital Signs
Temp Pulse Resp BP Pulse Ox
97.7 F 49 18 149/65 97
01/23/24 07:45 01/23/24 07:45 01/23/24 07:45 01/23/24 07:45 01/23/24 07:45
Physical Exam
Constitutional: No Acute Distress and Comfortable
Gastrointestinal: Soft and Non Distended
Wound: Other (Left foot decreased edema, dorsum and plantar erythema decreased, plantar large blister with residual fluid, + necrotic tissue underneath, left heel necrotic wound stable)
Objective Data
Lab Data
PT 19.2 Sec (.4-14.6) H 01/22/24 05:36
INR 1.61 01/22/24 05:36
APTT 44.6 Sec (23.4-35.0) H 01/22/24 05:36
Estimated Creat Clear 29 ml/min 01/22/24 05:36
Lactic Acid 0.7 mmol/L (0.7-2.0) 01/19/24 13:11
Total Bilirubin 0.9 mg/dl (0.2-1.3) 01/19/24 14:06
AST 18 U/L (17-59) 01/19/24 14:06
ALT 14 U/L (0-50) 01/19/24 14:06
Alkaline Phosphatase 174 U/L (38-126) H 01/19/24 14:06
Most recent labs reviewed.
Micro Results:
01/19/24 13:11 Blood Culture - Preliminary
Blood/Venous No Growth in 72 hours- Final report to follow
01/19/24 13:11 Blood Culture - Preliminary
Blood/Venous No Growth in 72 hours- Final report to follow
01/19/24 21:25 MRSA Screen - Final
Nose No Methicillin Resistant Staphylococcus aureus isolated.
01/19/24 Foot XRAY: No fracture, and no radiographic evidence of osteomyelitis.
01/19/24 L tib/fib xray: No osseous abnormality appreciated.
01/19/24 CXR: Small to moderate-sized bilateral pleural effusions. Large left lower lobe airspace consolidation and moderate airspace opacity in the right lower lobe. Diagnostic possibilities are (1) compressive atelectasis in the setting of pleural
effusions or (2) bilateral lower lobe pneumonia (if there are signs/symptoms of pulmonary infection). Acute on chronic interstitial and alveolar cardiogenic pulmonary edema.
[2024-01-23] MEDS: NOVOLOG FLEXPEN-MODERATE RESISTANCE 5 UNITS SC (11:43)
[2024-01-23] MEDS: RETACRIT 2000 UNITS IV (13:35)
[2024-01-23 13:37] LABS: Hematocrit 29.4 % (39.0-52.0); Hemoglobin 9.9 g/dL (13.0-18.0); Mean Corp Hgb Conc. 33.7 g/dL (33.0-37.0); Mean Corpuscular Hgb 28.4 pg (27.0-31.0); Mean Corpuscular Volume 84.2 fL (80.0-94.0); Mean Platelet Volume 10.2 fL (7.4-10.4); Platelet Count 292 10^3/uL (130-400); Red Blood Cell Count 3.49 10^6/uL (4.70-6.10); Red Cell Dist. Width 15.3 % (11.5-14.5); White Blood Cell Count 7.2 10^3/uL (4.8-10.8)
[2024-01-23 13:48] LABS: Blood Urea Nitrogen 37 mg/dl (9-20); Calcium 7.3 mg/dl (8.4-10.2); Carbon Dioxide 23 mmol/L (22-30); Chloride 98 mmol/L (98-107); Estimated Creatinine Clearance 23 ml/min; Glucose 258 mg/dl (70-99); Potassium 4.3 mmol/L (3.5-5.1); Sodium 133 mmol/L (135-145); eGFR 18.87
--- NOTE | 2024-01-23 14:19 | W.PN.NEPH.HD ---
Assessment
-
Seen on HD. no complaints. VSS, access ok
using CVC today to ensure UF. try AVF friday with small needles
Progress Note - Hemodialysis
-
Date of Service: January 23, 2024
Duration: 45 minutes and 3 hours
Potassium Bath: 3
Calcium Bath: 2.5
Opti-Dialyzer: 160
Ultrafiltration: Other (4kg)
Blood Flow: 400
Dialysate Flow: 600
Heparin: no
EPO: 2000 units
[2024-01-23 15:30] VITALS: BP 153/68
--- NOTE | 2024-01-23 16:10 | CM ---
CM reviewed chart, patient LTC resident of [facility], referral sent in [facility]. CM will continue to follow for all discharge planning needs.
Plan; return to [facility]
Report: [phone] (ask for nursing supervisor pigment making)
[2024-01-23] MEDS: MAXIPIME 1000 MG IV (17:06)
[2024-01-23] MEDS: STERILE WATER FOR INJECTION 10 ML IV (17:06)
[2024-01-23 17:33] LABS: Glucose - Point of Care 162 mg/dl (70-99)
[2024-01-23] MEDS: NOVOLOG FLEXPEN-MODERATE RESISTANCE 1 UNITS SC (18:11)
[2024-01-23] MEDS: LIPITOR 20 MG PO (21:15)
[2024-01-23 21:48] LABS: Glucose - Point of Care 209 mg/dl (70-99)
[2024-01-23] MEDS: LANTUS 0.04 UNITS SC (22:47)
[2024-01-23] MEDS: DESYREL 100 MG PO (22:48)
--- NOTE | 2024-01-23 22:55 | PTCARENOTE ---
Pt c/o dry cough, CRAB MEAT PROCESSOR made aware, new order provided, see MAR.
[2024-01-23] MEDS: ROBITUSSIN DM 5 ML PO (23:12)
[2024-01-23 23:45] VITALS: BP 122/56
[2024-01-24 06:00] VITALS: BMI 29.6
[2024-01-24 07:25] LABS: Glucose - Point of Care 150 mg/dl (70-99)
[2024-01-24 07:45] VITALS: BP 168/72
[2024-01-24] MEDS: NOVOLOG FLEXPEN-MODERATE RESISTANCE 1 UNITS SC ×2 (08:03→12:16)
[2024-01-24] MEDS: LEXAPRO 15 MG PO (08:03)
[2024-01-24] MEDS: PLAVIX 75 MG PO (08:04)
[2024-01-24] MEDS: NEPHROCAP 1 CAPSULE PO (08:04)
[2024-01-24] MEDS: SODIUM CHLORIDE 1 GRAM PO (08:04)
[2024-01-24] MEDS: PROTONIX 40 MG PO (08:04)
[2024-01-24] MEDS: FEOSOL 325 MG PO (08:04)
[2024-01-24] MEDS: JANUVIA 25 MG PO (08:04)
[2024-01-24] MEDS: NORVASC 10 MG PO (08:05)
[2024-01-24] MEDS: LOW STRENGTH ASPIRIN 81 MG PO (08:05)
[2024-01-24] MEDS: RENVELA 800 MG PO ×2 (08:05→12:18)
[2024-01-24] MEDS: MIRALAX PO (08:06)
[2024-01-24] MEDS: HEPARIN 5000 UNITS SC (08:06)
[2024-01-24] MEDS: FIRVANQ 125 MG PO (08:10)
[2024-01-24] MEDS: DESENEX/MITRAZOL/ZEASORB 1 APPLIC TOPICAL (08:11)
--- NOTE | 2024-01-24 10:56 | W.PN.NEPH.PH ---
Today's Communication / Plan
-
HD friday
Assessment/Plan
-
Assessment
ESRD
Hypertension
volume overload
AV fistula left upper arm
Left lower leg wound
Diabetes mellitus type 2
Rt AKA
Plan
HD friday use AVF
dc planning, ok from renal standpoint
-
-
Date of Service: January 24, 2024
CC / HPI / ROS
-
Chief Complaint:
ESRD
History of Present Illness:
tolerated HD yesterday via CVC
no fever, hb stable
sodium down 133
BP stable high
Review of Systems:
no cp or sob
Labs
-
Labs:
WBC 7.2 10^3/uL (4.8-10.8) 01/23/24 13:05
RBC 3.49 10^6/uL (4.70-6.10) L 01/23/24 13:05
Hgb 9.9 g/dL (13.0-18.0) L 01/23/24 13:05
Hct 29.4 % (39.0-52.0) L 01/23/24 13:05
Plt Count 292 10^3/uL (130-400) 01/23/24 13:05
Sodium 133 mmol/L (135-145) L 01/23/24 13:05
Potassium 4.3 mmol/L (3.5-5.1) 01/23/24 13:05
Chloride 98 mmol/L (98-107) 01/23/24 13:05
Carbon Dioxide 23 mmol/L (22-30) 01/23/24 13:05
BUN 37 mg/dl (9-20) H 01/23/24 13:05
Creatinine 3.6 mg/dL (0.7-1.3) H 01/23/24 13:05
eGFR 18.87 01/23/24 13:05
Glucose 258 mg/dl (70-99) H 01/23/24 13:05
Calcium 7.3 mg/dl (8.4-10.2) L 01/23/24 13:05
Eek-W-Rloupunrdmb Pept > 06465 pg/ml 01/19/24 14:06
Albumin 2.5 g/dl (3.5-5.0) L 01/19/24 14:06
Physical Exam
-
Vital Signs:
Vital Signs
Temp Pulse Resp BP Pulse Ox
97.5 F 51 16 168/72 98
01/24/24 07:45 01/24/24 07:45 01/24/24 07:45 01/24/24 07:45 01/24/24 07:45
Cardiovascular:: Regular rate and rhythm
Respiratory:: Bilateral: CTA
Lung Excursion:: Normal
Abdomen:: Nontender and Soft
Bowel Sounds:: Normal
Extremity Edema:: +3: Bilateral: (UE)
--- NOTE | 2024-01-24 11:21 | W.PN.HOSP.TC ---
Today's Communication/Plan
-
dc
Assessment / Plan
Assessment / Plan
Physical Exam
General: Comfortable and Conversant
HEENT: Anicteric and Moist mucous membranes
Respiratory: Non Labored Respirations and Decreased Breath Sounds (Bilateral bases). Hemodialysis catheter right upper chest: no erythema
Cardiac: S1/S2, Regular Rhythm and Murmur
GI: Soft and Non Tender
Musculoskeletal: No Clubbing, No Cyanosis, Edema, Left Lower Extremity and Other (Right BKA)
Skin: Warm, Dry and Other (Black eschar left Achilles region with foul smell noted; Large dark colored bullae across plantar aspect of left foot with surrounding erythema and increased warmth to touch)
Neurological: AO x 3
Psych: calm
# Acute left Foot Cellulitis secondary to Infected Left Foot Wound associated with Diabetes and significant PVD
Blister on plantar surface
Not toxic appearing
Blood culture No growth
- s/p vancomycin and cefepime. c/w cefepime only for now. WBC normalized. Prophylactic oral Vancomycin . Upon dc: transition to cefuroxime 500mg po q24 hours through 01/29/24
- Continue C. diff prophylactic Vanco 125mg po daily through 02/03/24.
-Monitored temp curve. I think temp one time of 100.5 might be not valid. No tachycardia
-Consulted vascular/ ID and Wound Care, appreciate help
# Severe PVF
s/p
Left lower extremity arteriogram
Balloon angioplasty of below the knee popliteal artery stenosis with a 4 mm x 4 cm Bard Lutonix drug-coated balloon.
Balloon angioplasty of below the knee popliteal artery stenosis with a 5 mm x 4 cm standard balloon.
Right femoral angiogram and Pro-glide percutaneous suture closure right common femoral artery puncture site.
Appreciate vascular help: for OP follow up , d/w vascular , dc on Plavix
# Swelling noted in both upper extremities
c/w edema low albumin and lack of activity. C/W effective HD.
#Chronic diastolic (congestive) heart failure
#L heel with unstageable PI, dry intact brown eschar/ Pressure (decubitus) ulcer
Sacrum : no pressure injuries visible, denuded excoriated skin
# Hypokalemia, replaced through HD
# Hyponatremia
#ESRD on HD
HD on MWF
-Patient appeared grossly volume overload
-Monitor Is&Os and Daily Weights
#Diabetes Mellitus, Insulin-Dependent
-Continue glargine and Tradjenta
-Monitor sugars and continue coverage insulin
Hx CVA/TIA
-Continue Plavix
Essential Hypertension
-Continue amlodipine
Hyperlipidemia
-Continue atorvastatin
Depression
-Continue escitalopram and trazodone
DVT proph: SC Heparin
Code Status: Full Code
Total discharge time spent to see the patient, examine the patient on the floor, review data and lab results, discuss discharge plan with patient, nursing staff around 55 minutes
Anticipated Discharge: Today
Subjective/Interval History
-
Date of Service: January 24, 2024
No chest pain
Lian bd pain
Objective Data
-
Vital Signs:
Vital Signs
Temp Pulse Resp BP Pulse Ox
97.5 F 51 16 168/72 98
01/24/24 07:45 01/24/24 07:45 01/24/24 07:45 01/24/24 07:45 01/24/24 07:45
I&O
01/23/24 01/24/24 01/25/24
06:59 06:59 05:59
Intake Total 625 / 625 1340 / 1340
Balance 625 / 625 1340 / 1340
--- NOTE | 2024-01-24 11:23 | CM ---
Reviewed chart, patient medically cleared for discharge. Medical necessity and transfer sheet completed and provided to [facility] community program assistant. Met with patient who signed IMM and is agreeable to discharge.
Plan: Case management will continue to follow and assist with discharge planning. Transfer to [facility] today.
[2024-01-24 11:38] LABS: Glucose - Point of Care 155 mg/dl (70-99)
--- NOTE | 2024-01-24 13:57 | W.DCSUMMARY ---
Discharge Summary
Discharge Data
Date of Admission: 01/19/24
Date of Discharge: 01/24/24
-
Pending Results: No
Hospital Course
58 years old male presented to the emergency room with left foot blisters and redness. Patient was receiving wound care at the [facility]. The blister continued with no improvement. The blister was on the plantar aspect of the left foot with
surrounding erythema. On admission, his white cell count was 13.4. He had temperature around 100.5. Patient denied fever or chills. Patient has neuropathy and did not complain of significant pain in the left foot. Patient was diagnosed with
acute cellulitis. He was evaluated by infectious diseases sap basis consultant. Patient was started on intravenous antibiotics. Patient has history of severe peripheral vascular disease. Vascular surgery was consulted. After discussing options with
patient, patient agreed to have an arteriogram. Patient underwent left lower extremity arteriogram for chronic limb threatening ischemia. He had balloon angioplasty of popliteal artery and right femoral angiogram, pro-glide percutaneous suture
closure right common femoral artery. Patient tolerated the procedure well. Vascular surgery recommended to continue antiplatelet therapy with the Plavix. Patient was also followed by complementary health therapists. He received hemodialysis. Blood culture did not
show any growth. Postprocedure Doppler showed detectable peripheral pulses in left lower extremity. Patient remained hemodynamically stable and was discharged back to [facility] in a stable condition.
Discharge Plan
-
Patient Disposition: [facility]
Discharge Diagnosis/Procedures: -Acute left Foot Cellulitis secondary to Infected Left Foot Wound associated with Diabetes and significant PVD
Take cefuroxime 500mg po q24 hours through 01/29/24. Continue C. diff prophylactic Vanco 125mg po daily through 02/03/24.
- Severe PVD. Chronic limb threatening ischemia left lower extremity. S/p
Left lower extremity arteriogram
Balloon angioplasty of below the knee popliteal artery stenosis with a 4 mm x 4 cm Bard Lutonix drug-coated balloon.
Balloon angioplasty of below the knee popliteal artery stenosis with a 5 mm x 4 cm standard balloon.
Right femoral angiogram and Pro-glide percutaneous suture closure right common femoral artery puncture site.
Diet: As tolerated
Others Tests: Ultrasound appointment:02/24 @ 9am
Activity Restrictions/Additional Instructions:
Wound Care Instructions
Foot: clean with soap and water or saline.
L heel: [place] with Betadine then ABD pad, adaptic over blister with ABD pad and kerlix change daily and prn soilage.
offload heel boot in bed with wedge to prevent internal rotation.
Air mattress with turning schedule
offloading cushion for chair
Follow up with vascular group
Referrals:
Grabiel Bansal DO [Family Provider] -
Ammy Trevino CRNP [Specified Professional Personl] - 02/27/24 9:45 am (Vascular surgery office follow-up)
Prescriptions:
New
vancomycin 50 mg/mL Recon Soln
125 mg PO DAILY 10 Days Qty: 25 0RF
cefuroxime axetil 500 mg tablet
500 mg PO DAILY 5 Days Qty: 5 0RF
Continued
atorvastatin 20 MG tablet
20 mg PO HS
clopidogrel 75 MG tablet
75 mg PO DAILY
ergocalciferol (vitamin D2) 50,000 UNITS capsule
50,000 units PO Q30D
Rx Instructions:
the 15th of each month
amlodipine 10 MG tablet
10 mg PO DAILY
sorbitol 30 ML solution
30 ml PO DAILYPRN PRN (Reason: if no bm in 3 days)
omeprazole 20 MG capsule,delayed release(DR/EC)
40 mg PO DAILY
trazodone 100 MG tablet
100 mg PO HS
bisacodyl [OneLAX Bisacodyl] 10 MG suppository
10 mg PA DAILYPRN PRN (Reason: if sorbitol ineffective)
Rx Instructions:
PRN constipation
Renal Caps 1 mg Capsule
1 cap PO DAILY
midodrine 10 mg Tablet
10 mg PO MOWEFR
acetaminophen 325 mg Tablet
650 mg PO Q6HPRN PRN (Reason: mild pain/temp>101)
insulin glargine [Basaglar KwikPen U-100 Insulin] 100 unit/mL (3 mL) Insulin Pen
4 unit SC HS
loperamide [Imodium A-D] 2 mg Capsule
2 mg PO BIDPRN PRN (Reason: DIARRHEA)
polyethylene glycol 3350 [Miralax] 17 gram Powder In Packet
17 g PO DAILY
sodium polystyrene sulfonate 15 gram/60 mL Suspension
15 g PO DAILYPRN PRN (Reason: MISSED DIALYSIS-High potassium)
ferrous sulfate [FeroSul] 325 mg (65 mg iron) Tablet
325 mg PO DAILY
escitalopram oxalate 10 mg Tablet
15 mg PO DAILY
insulin aspart U-100 [Novolog FlexPen U-100 Insulin] 100 unit/mL (3 mL) Insulin Pen
1 sliding scale dose SC DIRECTED
Rx Instructions:
BS 150-200=2 UNITS, 201-250= 4 UNITS, 251-300=6 UNITS, 301-350=8 UNITS, 351-400=10 UNITS.
Balmex Adult Care 11.3 % Cream
1 applic TOPICAL PRN PRN (Reason: with incontinence care)
teriparatide 20 mcg/dose (600mcg/2.4mL) Pen Injector
20 mcg SC DAILY
Tradjenta 5 mg Tablet
5 mg PO DAILY
sodium chloride 1 gram Tablet
1,000 mg PO DAILY
sevelamer carbonate [Renvela] 800 mg Tablet
800 mg PO TID
diclofenac sodium [Arthritis Pain (diclofenac)] 1 % Gel
4 g TOPICAL Q4HPRN PRN (Reason: left thigh)
torsemide 20 mg Tablet
120 mg PO DAILY
ondansetron HCl 4 mg Tablet
4 mg PO Q8HPRN PRN (Reason: nausea)
Discontinued
ammonium lactate 12 % Lotion
1 applic TOPICAL BID
cephalexin [Keflex] 500 mg Capsule
500 mg PO BID
Rx Instructions:
starting on 01/15/24-01/22/24
Discharge Orders:
Discharge Patient (As Directed); Ordered 01/24/24
Ordered By: Grecia Monroy
Discharge Date and Time
Print Language: MONGOLIAN
[2024-01-24 14:21] VITALS: BP 177/63
== END 2024-01-24 16:01 | DRG 252 ==
LOC: 3 WEST ACU 15:56
PROVIDERS: Nurse Practitioner; Physician Assistant Medical; Surgery Vascular Surgery; ADMITTING PHYSICIAN Internal Medicine; ATTENDING PHYSICIAN Internal Medicine; CONSULT PHYSICIAN Internal Medicine Infectious Disease; CONSULT PHYSICIAN Specialist; EMERGENCY PHYSICIAN Student in an Organized Health Care Education/Training Program; FAMILY PHYSICIAN Internal Medicine; OTHER PHYSICIAN Nurse Practitioner Acute Care
PROC: 047N3Z1 Dilation of Left Popliteal Artery using Drug-Coated Balloon, Percutaneous Approach (ICD-10-PCS; 2024-01-22)
DX: E11.51 Type 2 diabetes mellitus with diabetic peripheral angiopathy without gangrene (principal); N18.6 End stage renal disease; L03.116 Cellulitis of left lower limb; L97.423 Non-pressure chronic ulcer of left heel and midfoot with necrosis of muscle; I13.2 Hypertensive heart and chronic kidney disease with heart failure and with stage 5 chronic kidney disease, or end stage renal disease; E87.1 Hypo-osmolality and hyponatremia; I50.32 Chronic diastolic (congestive) heart failure; E11.22 Type 2 diabetes mellitus with diabetic chronic kidney disease; E87.6 Hypokalemia; E11.628 Type 2 diabetes mellitus with other skin complications; Z79.4 Long term (current) use of insulin; Z99.2 Dependence on renal dialysis; Z89.511 Acquired absence of right leg below knee; Z86.73 Personal history of transient ischemic attack (TIA), and cerebral infarction without residual deficits
CPT/HCPCS: 37224; 71046; 73590; 73620; 75625; 75710; 80048; 80051; 80053; 80202; 82962; 83036; 83605; 83880; 84484; 85025; 85027; 85610; 85730; 86706; 87040; 87070; 87340; 93005; 93922; 93925; 93990; 96365; 96375; 99285; C1725; C1760; C1769; C1887; C1894; C2623; G0257; P9047; Q5106; Q9967

== ENCOUNTER 2024-01-28 10:01 | Inpatient (IN) | payer MEDICARE, OTHER, SELFPAY ==
[2024-01-28] VITALS (9 sets, daily range): BP systolic 135–157; BP diastolic 52–73; BMI 29.9
[2024-01-28 04:56] LABS: % Basophils 0.7 % (0-2); % Eosinophils 1.5 % (0-6); % Immature Granulocytes 0.8 % (0-0.5); % Lymphocytes 19.8 % (20.5-51.1); % Monocytes 8.6 % (1.7-9.3); % Neutrophils 68.6 % (42.2-75.2); Absolute Basophils 0.1 10^3/uL (0-0.2); Absolute Eosinophils 0.1 10^3/uL (0-0.7); Absolute Immature Granulocytes 0.1 10^3/uL (0-0.05); Absolute Lymphocytes 1.5 10^3/uL (1.2-3.4); Absolute Monocytes 0.6 10^3/uL (0.1-0.6); Absolute Neutrophils 5.1 10^3/uL (1.4-6.5); Hemoglobin 10.6 g/dL (13.0-18.0); Mean Corp Hgb Conc. 34.2 g/dL (33.0-37.0); Mean Corpuscular Hgb 28.7 pg (27.0-31.0); Mean Platelet Volume 9.3 fL (7.4-10.4); Nucleated Red Blood Cells % 0 % (-); Platelet Count 269 10^3/uL (130-400); Red Blood Cell Count 3.69 10^6/uL (4.70-6.10); Red Cell Dist. Width 15.9 % (11.5-14.5); White Blood Cell Count 7.5 10^3/uL (4.8-10.8)
[2024-01-28 05:18] LABS: ALT (SGPT) 20 U/L (0-50); AST (SGOT) 25 U/L (17-59); Albumin 2.7 g/dl (3.5-5.0); Alkaline Phosphatase 177 U/L (38-126); Blood Urea Nitrogen 37 mg/dl (9-20); Calcium 7.6 mg/dl (8.4-10.2); Carbon Dioxide 24 mmol/L (22-30); Chloride 96 mmol/L (98-107); Glucose 79 mg/dl (70-99); Potassium 4.4 mmol/L (3.5-5.1); Sodium 135 mmol/L (135-145); Total Bilirubin 0.5 mg/dl (0.2-1.3); Total Protein 5.7 g/dl (6.3-8.2); eGFR 22.58
[2024-01-28 05:27] LABS: NT-proBNP 21900 pg/ml
[2024-01-28 05:49] LABS: Troponin I < 0.012 ng/ml
--- NOTE | 2024-01-28 07:04 | ED.GENMED ---
History of Present Illness
General
Chief Complaint: Chest Pain
Time Seen by Provider: 01/28/24 06:07
History of Present Illness
History of Present Illness:
Patient is a 58-year-old male with history of ESRD on Friday all this, CHF, hypertension, hyperlipidemia, chronic wounds presenting with chest pain. Per chart review patient was admitted for cellulitis as well as peripheral
arterial disease. He states that he was compliant with his dialysis however yesterday noticed some midsternal chest pain. It does not radiate. It is worse with leaning forward. He is also been having shortness of breath as well as significant
swelling to his extremities. This pain shortness of breath and volume overload is consistent with when he needs dialysis. He does state that on Friday his dialysis center told him to come to the hospital as they were having difficulty removing as
much fluid as they were able to when he was here in the hospital. Patient denies any fevers or chills. No nausea or vomiting. No diarrhea. He is compliant with his medications however he does state that he is not compliant with diet.
Past History
Past History
ED Past Medical History: CHF, CVA (Left sided weakness), HTN, Hypercholesterolemia, IDDM, Renal failure (Dialysis), Other (Nonhealing foot wounds, C-diff, ) and Other (Neurogenic bladder)
ED Past Surgical History: Orthopedic (R BKA)
Social History
Tobacco: Non-smoker
Alcohol: None
Drug: None
Personal: Single
Living: [facility]
Employment: Not employed
Family History
Family History: Other (Noncontributory)
Phy Exam
Physical Exam
Physical Exam:
GENERAL: in no acute distress
HEENT: normocephalic, extraocular movements intact, moist oral mucosa
NECK: normal inspection
RESPIRATORY: no respiratory distress, crackles at bases
CARDIOVASCULAR: regular rate and rhythm
ABDOMEN/: soft, non-distended, non-tender to palpation, no rebound or guarding
EXTREMITIES: non-tender, pitting edema in all extremities, right BKA
NEUROLOGIC: awake and alert, moves all extremities
SKIN: warm
Scores
Heart Score for Chest Pain Patients
STEMI patient?: Not applicable
Course
Orders/Labs/Results
Orders:
Orders
01/28/24 04:16
Electrocardiogram (*1) Urgent
Reason for Study: Other
Other Reason for Exam: Respiratory Distress
Cardiac Monitoring- Treatment ONCE
EKG- Treatment ONCE
IV Insert/Care/Rem.- Treatment PRN
CR Chest - 2 Views Urgent
Comment:
Reason For Exam: respiratory distress
O2 Therapy [RESP] Urgent
Titrate/Wean O2 to maintain O2 sat greater than (%): 93
Special Instructions: TO MAINTAIN CONTINUOUS O2 SATS >/= 93%
Pulse Ox/cont/shift [RESP] Urgent
Quantity: 1
Special Instructions: continuous pulse ox
01/28/24 04:25
Complete Blood Count/With Diff Urgent
Comprehensive Metabolic Panel Urgent
NT-proBNP Urgent
Troponin I Urgent
Abnormal Lab Results
01/28/24
04:25
RBC 3.69 L 10^6/uL
(4.70-6.10)
Hgb 10.6 L g/dL
(13.0-18.0)
Hct 31.0 L %
(39.0-52.0)
RDW 15.9 H %
(11.5-14.5)
Abs Immat Gran (auto) 0.1 H 10^3/uL
(0-0.05)
Immature Gran % 0.8 H %
(0-0.5)
Lymphocytes % 19.8 L %
(20.5-51.1)
Chloride 96 L mmol/L
(98-107)
BUN 37 H mg/dl
(9-20)
Creatinine 3.1 H mg/dL
(0.7-1.3)
Calcium 7.6 L mg/dl
(8.4-10.2)
Alkaline Phosphatase 177 H U/L
(38-126)
Total Protein 5.7 L g/dl
(6.3-8.2)
Albumin 2.7 L g/dl
(3.5-5.0)
01/28/24 04:25
01/28/24 04:25
Vital Signs
Initial and Last Documented VS:
Initial Vital Signs
Temp Pulse Resp BP Pulse Ox
98.0 F 47 16 137/62 97
01/28/24 04:16 01/28/24 04:16 01/28/24 04:16 01/28/24 04:16 01/28/24 04:16
Last Documented Vital Signs
Temp Pulse Resp BP Pulse Ox
98.0 F 43 3 137/62 98
01/28/24 04:16 01/28/24 06:00 01/28/24 06:00 01/28/24 04:16 01/28/24 06:00
MDM/Problems Addressed
Differential Diagnosis Includes:
Patient is a 58-year-old male with history of ESRD on dialysis, CHF, hypertension, hyperlipidemia presenting to the emergency department with feelings of volume overload as well as chest pain. Vitals here are notable for heart rate in the 40s and
exam does show crackles at the bases with significant pitting edema in all extremities. Differential consists of pulmonary edema/volume overload, pericarditis, atypical ACS. History and exam not consistent with PE or pneumonia. Blood work
obtained prior to my evaluation is notable for elevated BNP compared to his prior. Troponin is negative. Given that the pain has been ongoing for over a day do not need to obtain a delta troponin. EKG per my interpretation sinus bradycardia with
no ST changes. Chest x-ray per my interpretation with pulmonary edema. I did discuss with nephrology as patient will need dialysis today. Discussed with hospitalist who accepted patient to their service.
*Critical Care Note
Total Time (30-74mins, 75-104mins- exclusive of procedures): Not Applicable
ED Attending Note
-
Portions of this chart may have been created with voice recognition software.� Occasional wrong word or��sound alike� substitutions may have occurred due to the inherent limitations of voice recognition software.
Discharge Plan
Departure
Patient Disposition: Admit
Date of Disposition: 01/28/24
Time of Disposition: 07:03
Presentation/result/management discussed w/ accepting MD/DO: Hospitalist
Discharge Problem:
Volume overload
Prescriptions:
No Action
atorvastatin 20 MG tablet
20 mg PO HS
clopidogrel 75 MG tablet
75 mg PO DAILY
ergocalciferol (vitamin D2) 50,000 UNITS capsule
50,000 units PO Q30D
Rx Instructions:
the 15th of each month
amlodipine 10 MG tablet
10 mg PO DAILY
sorbitol 30 ML solution
30 ml PO DAILYPRN PRN (Reason: if no bm in 3 days)
omeprazole 20 MG capsule,delayed release(DR/EC)
40 mg PO DAILY
trazodone 100 MG tablet
100 mg PO HS
bisacodyl [OneLAX Bisacodyl] 10 MG suppository
10 mg DE DAILYPRN PRN (Reason: if sorbitol ineffective)
Rx Instructions:
PRN constipation
Renal Caps 1 mg Capsule
1 cap PO DAILY
midodrine 10 mg Tablet
10 mg PO MOWEFR
acetaminophen 325 mg Tablet
650 mg PO Q6HPRN PRN (Reason: mild pain/temp>101)
insulin glargine [Basaglar KwikPen U-100 Insulin] 100 unit/mL (3 mL) Insulin Pen
4 unit SC HS
loperamide [Imodium A-D] 2 mg Capsule
2 mg PO BIDPRN PRN (Reason: DIARRHEA)
polyethylene glycol 3350 [Miralax] 17 gram Powder In Packet
17 g PO DAILY
sodium polystyrene sulfonate 15 gram/60 mL Suspension
15 g PO DAILYPRN PRN (Reason: MISSED DIALYSIS-High potassium)
ferrous sulfate [FeroSul] 325 mg (65 mg iron) Tablet
325 mg PO DAILY
escitalopram oxalate 10 mg Tablet
15 mg PO DAILY
insulin aspart U-100 [Novolog FlexPen U-100 Insulin] 100 unit/mL (3 mL) Insulin Pen
1 sliding scale dose SC DIRECTED
Rx Instructions:
BS 150-200=2 UNITS, 201-250= 4 UNITS, 251-300=6 UNITS, 301-350=8 UNITS, 351-400=10 UNITS.
Balmex Adult Care 11.3 % Cream
1 applic TOPICAL PRN PRN (Reason: with incontinence care)
teriparatide 20 mcg/dose (600mcg/2.4mL) Pen Injector
20 mcg SC DAILY
Tradjenta 5 mg Tablet
5 mg PO DAILY
sodium chloride 1 gram Tablet
1,000 mg PO DAILY
sevelamer carbonate [Renvela] 800 mg Tablet
800 mg PO TID
diclofenac sodium [Arthritis Pain (diclofenac)] 1 % Gel
4 g TOPICAL Q4HPRN PRN (Reason: left thigh)
torsemide 20 mg Tablet
120 mg PO DAILY
ondansetron HCl 4 mg Tablet
4 mg PO Q8HPRN PRN (Reason: nausea)
vancomycin 50 mg/mL Recon Soln
125 mg PO DAILY 10 Days Qty: 25 0RF
cefuroxime axetil 500 mg tablet
500 mg PO DAILY 5 Days Qty: 5 0RF
Referrals:
Grabiel Bansal DO [Family Provider] -
Interventions
Interventions:
*Risk Screen - Suicide Last Done: 01/28/24 04:16
*General Assessment Last Done: 01/28/24 04:16
*Neglect/Abuse Screening Last Done: 01/28/24 04:16
*ED COVID-19 Vaccine History Last Done: 01/28/24 04:22
ED- Cardiac Assessment Last Done: 01/28/24 04:31
Discharge Date and Time
Print Language: MALTESE
--- NOTE | 2024-01-28 09:18 | HPS.HSE ---
Family Physician
-
Family Physician: Grabiel Bansal, DO
Chief Complaint
-
Chest tightness, SOB, edema
History of Present Illness
58-year-old male with a past medical history of end-stage renal failure on dialysis Friday/Friday/Friday, diabetes, anemia, diabetic neuropathy, osteomyelitis status post right BKA, hypertension, hyperlipidemia, and stroke who presents with chest
pain and shortness of breath. Patient states that he woke up at 1 AM, and felt chest tightness and shortness of breath. He reports it 6 out of 10 in intensity, no aggravating or relieving factors identified. Denies nausea, vomiting. No abdominal
pain. He has chronic diarrhea. Patient was recently discharged from [facility] 4 days ago on 01/24/2024 after treatment of left lower extremity leg wound with surrounding cellulitis. He is on cefuroxime 500 mg daily through 01/29/2024, and
oral vancomycin for C. difficile prophylaxis.
Medical History
Past Medical History
Past Medical History: Reports Other
Additional Past Medical History:
ESRD on HD
Anemia of Chronic Disease
Diabetes Mellitus, Insulin-Dependent
Diabetic Neuropathy
CVA
Osteomyelitis Right Foot/Ankle s/p Right BKA
Essential Hypertension
Hyperlipidemia
Left Humerus Fracture
Past Surgical History: Reports Other
Additional Past Surgical History:
Left Upper Ext AV Fistula
Right BKA
Social History
Tobacco: Non-smoker
Living: [facility]
Family History
Family History: Not pertinent
Allergies / Home Medications
Allergies reflects when Allergies were last updated in [facility].
Home Medications with original date entered in [facility]
Allergy/Medication List:
Allergies
Allergy/AdvReac Type Severity Reaction Status Date / Time
No Known Allergies Allergy Verified 01/28/24 04:16
Home Medications Table - record
�Medication �Instructions �Recorded �Confirmed
atorvastatin 20 mg tablet 20 mg PO HS High cholesterol 05/21/21 01/28/24
clopidogrel 75 mg tablet 75 mg PO DAILY Blood clot 05/21/21 01/28/24
prevention/tx
ergocalciferol (vitamin D2) 1,250 50,000 units PO Q30D Supplement 05/21/21 01/28/24
mcg (50,000 unit) capsule
amlodipine 10 mg tablet 10 mg PO DAILY Blood pressure 06/05/21 01/28/24
sorbitol 70 % solution 30 ml PO DAILYPRN PRN if no bm in 06/21/21 01/28/24
3 days
omeprazole 20 mg capsule,delayed 40 mg PO DAILY Gastrointestinal 09/18/21 01/28/24
release issue
bisacodyl 10 mg rectal suppository 10 mg AL DAILYPRN PRN if sorbitol 09/19/21 01/28/24
(OneLAX Bisacodyl) ineffective
trazodone 100 mg tablet 100 mg PO HS Sleep 09/19/21 01/28/24
midodrine 10 mg tablet 10 mg PO MOWEFR prior to HD, HOLD 11/26/21 01/28/24
SBP >140
acetaminophen 325 mg tablet 650 mg PO Q6HPRN PRN mild 12/03/21 01/28/24
pain/temp>101
insulin glargine 100 unit/mL (3 4 unit SC HS Diabetes 12/22/21 01/28/24
mL) subcutaneous pen (Basaglar
KwikPen U-100 Insulin)
escitalopram oxalate 10 mg tablet 15 mg PO DAILY Depression 11/20/23 01/28/24
ferrous sulfate 325 mg (65 mg 325 mg PO DAILY Supplement 11/20/23 01/28/24
iron) tablet (FeroSul)
insulin aspart U-100 100 unit/mL 1 sliding scale dose SC AC Diabetes 11/20/23 01/28/24
(3 mL) subcutaneous pen (Novolog
FlexPen U-100 Insulin aspart)
linagliptin 5 mg tablet (Tradjenta) 5 mg PO DAILY Diabetes 11/20/23 01/28/24
loperamide 2 mg capsule (Imodium 2 mg PO BIDPRN PRN DIARRHEA 11/20/23 01/28/24
A-D)
polyethylene glycol 3350 17 gram 17 g PO DAILY Constipation 11/20/23 01/28/24
oral powder packet (Miralax)
sodium polystyrene sulfonate 15 15 g PO DAILYPRN PRN MISSED 11/20/23 01/28/24
gram/60 mL oral suspension DIALYSIS-High potassium
teriparatide 20 mcg/dose (600 20 mcg SC DAILY osteoporosis 11/20/23 01/28/24
mcg/2.4 mL) subcutaneous pen
injector
zinc oxide-vitamin B5-vit E 11.3% 1 applic topical TID BUTTOCKS 11/20/23 01/28/24
topical cream (Balmex Adult Care)
diclofenac sodium 1 % topical gel 4 g topical Q4HPRN PRN left thigh 01/19/24 01/28/24
(Arthritis Pain (diclofenac))
ondansetron HCl 4 mg tablet 4 mg PO Q8HPRN PRN nausea 01/19/24 01/28/24
sevelamer carbonate 800 mg tablet 800 mg PO TID Kidney Disease 01/19/24 01/28/24
(Renvela)
torsemide 20 mg tablet 120 mg PO DAILY Fluid 01/19/24 01/28/24
Retention/Swelling
ammonium lactate 12 % lotion 1 applic topical BID left foot 01/28/24 01/28/24
cefuroxime axetil 500 mg tablet 500 mg PO DAILY Infection 01/28/24 01/28/24
vancomycin 50 mg/mL oral solution 125 mg PO DAILY infection 01/28/24 01/28/24
vitamin B complex and vitamin C 1 cap PO DAILY Supplement 01/28/24 01/28/24
no.20-folic acid 1 mg capsule
(Renal Caps)
Review of Systems
-
A 12 point ROS was completed and negative except as noted: Yes
Physical Exam
Vital Signs
Vital Signs
Temp Pulse Resp BP Pulse Ox
98.0 F 44 22 137/62 95
01/28/24 04:16 01/28/24 08:00 01/28/24 07:45 01/28/24 04:16 01/28/24 08:00
Physical Exam
General: No Apparent Distress
HEENT: NormoCephalic, Anicteric, Moist mucous membranes and Atraumatic
Respiratory: Clear
Cardiac: S1/S2 and Regular Rhythm
GI: Soft, Non Tender, Non Distended and Normal Bowel Sounds
Musculoskeletal: No Clubbing and Other (3+ severe edema of bilateral upper extremities, edema also noted in left lower extremity, right BKA noted)
Skin: Other (Right leg wound dressed)
Psych: Calm
Laboratory Results
-
01/28/24 04:25
01/28/24 04:25
Laboratory Results
Total Bilirubin 0.5 mg/dl (0.2-1.3) 01/28/24 04:25
AST 25 U/L (17-59) 01/28/24 04:25
ALT 20 U/L (0-50) 01/28/24 04:25
Alkaline Phosphatase 177 U/L (38-126) H 01/28/24 04:25
Troponin I < 0.012 ng/ml 01/28/24 04:25
Impression/Plan
-
HPI: 58-year-old male with a past medical history of end-stage renal failure on dialysis Friday/Friday/Friday, diabetes, anemia, diabetic neuropathy, osteomyelitis status post right BKA, hypertension, hyperlipidemia, and stroke who presents with
chest pain and shortness of breath. Patient states that he woke up at 1 AM, and felt chest tightness and shortness of breath. He reports it 6 out of 10 in intensity, no aggravating or relieving factors identified. Denies nausea, vomiting. No
abdominal pain. He has chronic diarrhea. Patient was recently discharged from [facility] 4 days ago on 01/24/2024 after treatment of left lower extremity leg wound with surrounding cellulitis. He is on cefuroxime 500 mg daily through
01/29/2024, and oral vancomycin for C. difficile prophylaxis.
#Atypical chest pain
Give aspirin 324 mg stat, Nitrostat sublingual as needed
Trend troponins, trend EKG, check echocardiogram
Consider cardiology consult if troponins are elevated
#End-stage renal failure on dialysis Friday/Friday/Friday
#Shortness of breath
Consult nephrology for dialysis
Continue midodrine before dialysis
Continue Sevelamer
#Severe b/l upper extremity edema
Check Dopplers
#Left lower extremity wound with surrounding cellulitis
Cefuroxime 500 mg daily through 01/29/2024, and oral vancomycin for C. difficile prophylaxis
Wound care
#Benign essential hypertension
Continue amlodipine 10 mg daily
#Diabetes
Continue glargine 4 units at bedtime, diabetic diet, sliding scale insulin
#GERD
Continue PPI
#Anemia of chronic disease
Hemoglobin at baseline, continue iron supplements, trend
#History of stroke
Continue Plavix, statin
#Anxiety/depression
Continue SSRI
DVT prophylaxis�subcu heparin
Full code
Total time spent to see the patient on the floor, examine the patient, review data and lab results, discuss treatment plan with patient, nursing staff around 77 minutes.
--- NOTE | 2024-01-28 11:45 | W.CON.NEPH ---
Consultation
-
Date/Time Consultation Requested: 01/28/24 0900
Date/Time Consultation Performed: 01/28/24 1000
Requesting Provider: Dr. Bravo
Performing Provider: Dr Horn
Reason for Consultation: ESRD
Medical History
-
Chief Complaint: chest pain
History of Present Illness:
This is a 58-year-old gentleman who has end-stage renal disease on hemodialysis Fridays at [facility]. He was recently in the hospital for a nonhealing left lower leg wound. He was also noted to be volume overloaded
at that time. He was dialyzed closer to his dry weight during that admission. He subsequently was discharged back to [facility]. He says that he had been doing fairly well over there though he is not certain whether or not they are able to remove
volume as they do not tell him his weights after dialysis. Overnight he had awoken around 1 AM and had chest pain and told the nurse. He was then sent to the emergency room for that. He is due for dialysis today. He has an AV fistula in his left
upper arm created in November which has been cleared for use by vascular surgery. He still has a dialysis catheter in his left neck.
Past Medical History
1. End-stage renal disease since January 2021.
2. Type 2 diabetes.
3. Neurogenic bladder.
4. Lower extremity wounds.
5. Right AKA.
6. GERD.
7. Hypertension.
8. Right IJ catheter.
9. History of C diff.
10.History of hyperphosphatemia.
11.History of ambulatory dysfunction.
12.History of dyslipidemia.
13. Left AV fistula
Social History
Tobacco: Non-Smoker
Alcohol: None
Family History
Family History: Not Pertinent
Allergies / Home Medications
Allergy/AdvReac Type Severity Reaction Status Date / Time
No Known Allergies Allergy Verified 01/28/24 04:16
�Medication �Instructions �Recorded �Confirmed �Type
atorvastatin 20 mg tablet 20 mg PO HS High cholesterol 05/21/21 01/28/24 History
clopidogrel 75 mg tablet 75 mg PO DAILY Blood clot 05/21/21 01/28/24 History
prevention/tx
ergocalciferol (vitamin D2) 1,250 50,000 units PO Q30D Supplement 05/21/21 01/28/24 History
mcg (50,000 unit) capsule
amlodipine 10 mg tablet 10 mg PO DAILY Blood pressure 06/05/21 01/28/24 History
sorbitol 70 % solution 30 ml PO DAILYPRN PRN if no bm in 06/21/21 01/28/24 History
3 days
omeprazole 20 mg capsule,delayed 40 mg PO DAILY Gastrointestinal 09/18/21 01/28/24 History
release issue
bisacodyl 10 mg rectal suppository 10 mg HI DAILYPRN PRN if sorbitol 09/19/21 01/28/24 History
(OneLAX Bisacodyl) ineffective
trazodone 100 mg tablet 100 mg PO HS Sleep 09/19/21 01/28/24 History
midodrine 10 mg tablet 10 mg PO MOWEFR prior to HD, HOLD 11/26/21 01/28/24 History
SBP >140
acetaminophen 325 mg tablet 650 mg PO Q6HPRN PRN mild 12/03/21 01/28/24 History
pain/temp>101
insulin glargine 100 unit/mL (3 4 unit SC HS Diabetes 12/22/21 01/28/24 History
mL) subcutaneous pen (Basaglar
KwikPen U-100 Insulin)
escitalopram oxalate 10 mg tablet 15 mg PO DAILY Depression 11/20/23 01/28/24 History
ferrous sulfate 325 mg (65 mg 325 mg PO DAILY Supplement 11/20/23 01/28/24 History
iron) tablet (FeroSul)
insulin aspart U-100 100 unit/mL 1 sliding scale dose SC AC Diabetes 11/20/23 01/28/24 History
(3 mL) subcutaneous pen (Novolog
FlexPen U-100 Insulin aspart)
linagliptin 5 mg tablet (Tradjenta) 5 mg PO DAILY Diabetes 11/20/23 01/28/24 History
loperamide 2 mg capsule (Imodium 2 mg PO BIDPRN PRN DIARRHEA 11/20/23 01/28/24 History
A-D)
polyethylene glycol 3350 17 gram 17 g PO DAILY Constipation 11/20/23 01/28/24 History
oral powder packet (Miralax)
sodium polystyrene sulfonate 15 15 g PO DAILYPRN PRN MISSED 11/20/23 01/28/24 History
gram/60 mL oral suspension DIALYSIS-High potassium
teriparatide 20 mcg/dose (600 20 mcg SC DAILY osteoporosis 11/20/23 01/28/24 History
mcg/2.4 mL) subcutaneous pen
injector
zinc oxide-vitamin B5-vit E 11.3% 1 applic topical TID BUTTOCKS 11/20/23 01/28/24 History
topical cream (Balmex Adult Care)
diclofenac sodium 1 % topical gel 4 g topical Q4HPRN PRN left thigh 01/19/24 01/28/24 History
(Arthritis Pain (diclofenac))
ondansetron HCl 4 mg tablet 4 mg PO Q8HPRN PRN nausea 01/19/24 01/28/24 History
sevelamer carbonate 800 mg tablet 800 mg PO TID Kidney Disease 01/19/24 01/28/24 History
(Renvela)
torsemide 20 mg tablet 120 mg PO DAILY Fluid 01/19/24 01/28/24 History
Retention/Swelling
ammonium lactate 12 % lotion 1 applic topical BID left foot 01/28/24 01/28/24 History
cefuroxime axetil 500 mg tablet 500 mg PO DAILY Infection 01/28/24 01/28/24 History
vancomycin 50 mg/mL oral solution 125 mg PO DAILY infection 01/28/24 01/28/24 History
vitamin B complex and vitamin C 1 cap PO DAILY Supplement 01/28/24 01/28/24 History
no.20-folic acid 1 mg capsule
(Renal Caps)
Review of Systems
-
Chest pressure
No shortness of breath
Edema in the upper arms
All other systems: Negative unless noted
Physical Exam
Vital Signs
Vital Signs
Temp Pulse Resp BP Pulse Ox
98.0 F 52 13 136/59 96
01/28/24 04:16 01/28/24 11:30 01/28/24 11:30 01/28/24 11:00 01/28/24 11:30
Lab Results
WBC 7.5 10^3/uL (4.8-10.8) 01/28/24 04:25
RBC 3.69 10^6/uL (4.70-6.10) L 01/28/24 04:25
Hgb 10.6 g/dL (13.0-18.0) L 01/28/24 04:25
Hct 31.0 % (39.0-52.0) L 01/28/24 04:25
Plt Count 269 10^3/uL (130-400) 01/28/24 04:25
Sodium 135 mmol/L (135-145) 01/28/24 04:25
Potassium 4.4 mmol/L (3.5-5.1) 01/28/24 04:25
Chloride 96 mmol/L (98-107) L 01/28/24 04:25
Carbon Dioxide 24 mmol/L (22-30) 01/28/24 04:25
BUN 37 mg/dl (9-20) H 01/28/24 04:25
Creatinine 3.1 mg/dL (0.7-1.3) H 01/28/24 04:25
eGFR 22.58 01/28/24 04:25
Glucose 79 mg/dl (70-99) 01/28/24 04:25
Calcium 7.6 mg/dl (8.4-10.2) L 01/28/24 04:25
Xbt-M-Tesyotlvdqo Pept 29951 pg/ml 01/28/24 04:25
Albumin 2.7 g/dl (3.5-5.0) L 01/28/24 04:25
Laboratory Tests
01/23/24
13:05
Hgb 9.9 L
Sodium 133 L
Physical Exam
Patient is awake alert oriented and in no distress. Mood and affect were pleasant, insight and judgment were good. Pupils are equal round and reactive to light, extraocular movements are intact, sclera were anicteric. Hearing was normal, ears and
nose are intact. Oropharynx was clear. Neck was supple with trachea midline and no thyromegaly. Heart was regular rate and rhythm without rubs. extremities with 3+ edema. Lungs were clear to auscultation bilaterally and with normal excursion.
Abdomen was soft, nontender, with normal active bowel sounds, and no hepatosplenomegaly. Skin was without rash and with normal turgor. AV fistula left upper arm with good thrill and bruit, dialysis catheter left neck clean dry and intact
Data Reviewed
-
Radiology: Image Personally Visualized and interpreted (Chest x-ray on 01/28/2024 by my reading shows vascular prominence, less than prior x-ray 01/19/2024)
Medical Tests (Nuc Med, Echo etc): Image Personally Visualized and interpreted (EKG on 01/28/2024 by my reading shows sinus bradycardia left anterior fascicular block)
Labs: Labs Reviewed by me
Old Records: Reviewed
Assessment/Plan
-
Assessment
ESRD
Hypertension
volume overload
AV fistula left upper arm
Left lower leg wound
Diabetes mellitus type 2
Rt AKA
Chest discomfort, normal troponin
Plan
Hemodialysis today, will try impress ultrafiltration for volume
For use dialysis catheter today plan for AV fistula use without coming dialysis sessions
--- NOTE | 2024-01-28 14:36 | PTCARENOTE ---
pt admitted from ed. aaox3. states 08/31 pain in chest described as pressure. md aware. pt now starting HD. sacrum red blanchable. left hand with scab. left foot multiple open areas. penis with red open area. right groin puncture site from
last admission. room air breath sounds clear. right aka.
[2024-01-28] MEDS: RETACRIT 4000 UNITS IV (15:10)
[2024-01-28] MEDS: HEPARIN 500 UNITS IV ×2 (15:11)
[2024-01-28] MEDS: ProAmatine 10 MG PO (15:24)
--- NOTE | 2024-01-28 15:52 | WOUNDNOTE ---
LEFT DORSAL FOOT
--- NOTE | 2024-01-28 15:52 | WOUNDNOTE ---
LEFT DORSAL FOOT
--- NOTE | 2024-01-28 16:00 | WOUNDNOTE ---
[facility] RN note: Patient admitted with SOB. Last admission 01/18-01/23 for cellulitis of L foot.
See H&P for complete history. Lives at [facility].
PMH: R BKA, Angioplasty, IDDM, pneumonia, RF-hemodialysis, CHF,HTN, UTI, Bed bound.
Wound Location and type/assessment: Patient admitted with: L foot blister, with purulent and sanguinous drainage. The wound was not dressed at time of assessment and fiber filled boot was soiled with drainage. Patient reports the wound has been
open to air since Friday. Dried drainage was vigorously cleaned from wound with saline.The blister wraps around to plantar foot with purulent pocket in the center. This pocket was not visualized in pictures during the last admission. L heel with
unstageable PI, dry intact brown eschar. Unable to see sacrum at this time- on dialysis. Per chart review, sacrum is blanchable red. Heel offloaded with pillows under calves, new fiber-filled boot ordered. Patient is s/p left lower extremity
arteriogram on 01/22. R stump assessed and was intact.
Appetite:Good.
Pressure redistribution devices in place: On Accumax, asked nurse Brodie to apply static air overlay after dialysis. A new fiber filled boot was ordered from [facility]. Turning schedule.
Plan: Today wounds cleaned and dry dressing applied with assistance of RN, Maryam. Would recommend Dakins to clean wound and podiatry consult. Updated care plan and will follow as needed.
Note to case management of equipment requested for discharge: Air mattress.
Recommend follow up at wound care center upon discharge.
--- NOTE | 2024-01-28 16:00 | WOUNDNOTE ---
LEFT PLANTAR FOOT
--- NOTE | 2024-01-28 16:46 | W.PN.NEPH.HD ---
Assessment
-
Seen on HD. no new complaints. VSS, access ok
Progress Note - Hemodialysis
-
Date of Service: January 28, 2024
Duration: 30 minutes and 3 hours
Potassium Bath: 3
Calcium Bath: 2.5
Opti-Dialyzer: 160
Ultrafiltration: Other (4kg)
Blood Flow: 400
Dialysate Flow: 600
Heparin: 500x2
EPO: 4000 units
[2024-01-28] MEDS: HEPARIN 3200 UNITS INTRACATH (17:56)
[2024-01-28 18:15] LABS: Glucose - Point of Care 83 mg/dl (70-99)
[2024-01-28] MEDS: DEMADEX 120 MG PO (18:20)
[2024-01-28] MEDS: FIRVANQ 125 MG PO (18:20)
[2024-01-28] MEDS: LEXAPRO 15 MG PO (18:22)
[2024-01-28] MEDS: PROTONIX 40 MG PO (18:22)
[2024-01-28] MEDS: RENVELA 800 MG PO (18:22)
[2024-01-28] MEDS: CEFTIN 500 MG PO (18:22)
[2024-01-28] MEDS: NOVOLOG FLEXPEN-MODERATE RESISTANCE SC (18:23)
[2024-01-28] MEDS: BALMEX CREAM 1 APPLIC TOPICAL (18:23)
[2024-01-28] MEDS: FEOSOL 325 MG PO (18:23)
[2024-01-28] MEDS: JANUVIA 25 MG PO (18:23)
[2024-01-28] MEDS: PLAVIX 75 MG PO (18:25)
[2024-01-28 18:46] LABS: Troponin I < 0.012 ng/ml
[2024-01-28] MEDS: LAC HYDRIN, AM LACTIN LOTION 1 APPLIC TOPICAL (20:05)
[2024-01-28] MEDS: HEPARIN 5000 UNITS SC (20:06)
[2024-01-28] MEDS: DAKIN'S SOLUTION 0.125% 1/4 STRENGTH TOPICAL (20:14)
[2024-01-28 22:12] LABS: Glucose - Point of Care 124 mg/dl (70-99)
[2024-01-28] MEDS: LIPITOR 20 MG PO (22:12)
[2024-01-28] MEDS: DESYREL 100 MG PO (22:12)
[2024-01-28] MEDS: LANTUS 0.04 UNITS SC (22:12)
[2024-01-28] MEDS: BALMEX CREAM TOPICAL (22:32)
[2024-01-29] VITALS (7 sets, daily range): BP systolic 135–171; BP diastolic 50–97; BMI 28.6
[2024-01-29 01:05] LABS: Troponin I < 0.012 ng/ml
--- NOTE | 2024-01-29 04:12 | PTCARENOTE ---
This RN assumed care of this pt at 0400 am.
[2024-01-29 06:26] LABS: Hemoglobin 10.4 g/dL (13.0-18.0); Mean Corp Hgb Conc. 33.5 g/dL (33.0-37.0); Mean Corpuscular Hgb 28.7 pg (27.0-31.0); Mean Corpuscular Volume 85.4 fL (80.0-94.0); Mean Platelet Volume 10.1 fL (7.4-10.4); Platelet Count 290 10^3/uL (130-400); Red Blood Cell Count 3.63 10^6/uL (4.70-6.10); Red Cell Dist. Width 16.1 % (11.5-14.5); White Blood Cell Count 6.5 10^3/uL (4.8-10.8)
[2024-01-29 06:43] LABS: Blood Urea Nitrogen 25 mg/dl (9-20); Calcium 7.5 mg/dl (8.4-10.2); Carbon Dioxide 26 mmol/L (22-30); Chloride 97 mmol/L (98-107); Estimated Creatinine Clearance 28 ml/min; Glucose 101 mg/dl (70-99); Magnesium 2.1 mg/dl (1.6-2.3); Sodium 137 mmol/L (135-145); eGFR 27.89
[2024-01-29 07:21] LABS: Glucose - Point of Care 87 mg/dl (70-99)
--- NOTE | 2024-01-29 08:25 | WOUNDNOTE ---
[facility] RN note: Patient admitted with SOB. Last admission 01/18-01/23 for cellulitis of L foot.
See H&P for complete history. Lives at [facility].
PMH: R BKA, Angioplasty, IDDM, pneumonia, RF-hemodialysis, CHF,HTN, UTI, Bed bound.
Wound Location and type/assessment: Patient admitted with: L foot blister, with purulent and sanguinous drainage. The wound was not dressed at time of assessment and fiber filled boot was soiled with drainage. Patient reports the wound has been
open to air since Friday. Dried drainage was vigorously cleaned from wound with saline.The blister wraps around to plantar foot with purulent pocket in the center. This pocket was not visualized in pictures during the last admission. L heel with
unstageable PI, dry intact brown eschar. Unable to see sacrum at this time- on dialysis. Per chart review, sacrum is blanchable red. Heel offloaded with pillows under calves, new fiber-filled boot ordered. Patient is s/p left lower extremity
arteriogram on 01/22. R stump assessed and was intact.
Appetite:Good.
Pressure redistribution devices in place: On Accumax, asked nurse Brodie to apply static air overlay after dialysis. A new fiber filled boot was ordered from [facility]. Turning schedule.
Plan: Today wounds cleaned and dry dressing applied with assistance of RN, Maryam. Would recommend Dakins to clean wound and podiatry consult. Updated care plan and will follow as needed.
Note to case management of equipment requested for discharge: Air mattress.
Recommend follow up at wound care center upon discharge.
[2024-01-29] MEDS: NOVOLOG FLEXPEN-MODERATE RESISTANCE SC ×3 (08:31→16:28)
[2024-01-29] MEDS: PROTONIX 40 MG PO (08:32)
[2024-01-29] MEDS: NEPHROCAP 1 CAPSULE PO (08:32)
[2024-01-29] MEDS: NORVASC 10 MG PO (08:32)
[2024-01-29] MEDS: CEFTIN 500 MG PO (08:32)
[2024-01-29] MEDS: LEXAPRO 15 MG PO (08:32)
[2024-01-29] MEDS: RENVELA 800 MG PO ×3 (08:32→16:32)
[2024-01-29] MEDS: FEOSOL 325 MG PO (08:32)
[2024-01-29] MEDS: PLAVIX 75 MG PO (08:32)
[2024-01-29] MEDS: JANUVIA 25 MG PO (08:32)
[2024-01-29] MEDS: LAC HYDRIN, AM LACTIN LOTION 1 APPLIC TOPICAL ×2 (08:33→21:35)
[2024-01-29] MEDS: HEPARIN 5000 UNITS SC ×2 (08:33→21:32)
[2024-01-29] MEDS: BALMEX CREAM 1 APPLIC TOPICAL ×3 (08:33→21:35)
[2024-01-29] MEDS: DAKIN'S SOLUTION 0.125% 1/4 STRENGTH 473 ML TOPICAL (08:33)
[2024-01-29] MEDS: FIRVANQ 125 MG PO (08:37)
--- NOTE | 2024-01-29 08:52 | W.PN.HOSP.TC ---
Today's Communication/Plan
-
see bold
Assessment / Plan
Assessment / Plan
HPI: 58-year-old male with a past medical history of end-stage renal failure on dialysis Friday/Friday/Friday, diabetes, anemia, diabetic neuropathy, osteomyelitis status post right BKA, hypertension, hyperlipidemia, and stroke who presents with
chest pain and shortness of breath. Patient states that he woke up at 1 AM, and felt chest tightness and shortness of breath. He reports it 6 out of 10 in intensity, no aggravating or relieving factors identified. Denies nausea, vomiting. No
abdominal pain. He has chronic diarrhea. Patient was recently discharged from [facility] 4 days ago on 01/24/2024 after treatment of left lower extremity leg wound with surrounding cellulitis. He is on cefuroxime 500 mg daily through
01/29/2024, and oral vancomycin for C. difficile prophylaxis.
#Left plantar wound with surrounding cellulitis and possible abscess
Currently on cefuroxime 500 mg daily through 01/29/2024, and oral vancomycin for C. difficile prophylaxis
Changed to IV Ancef renally dosed, continue wound care, consult podiatry
#Atypical chest pain
S/p aspirin 324 mg, Nitrostat sublingual as needed
Troponins negative, chest tightness resolved, not consistent with ACS
Echo with normal biventricular size and systolic function without regional wall motion abnormalities, mild < EF 60-65%
#End-stage renal failure on dialysis Friday/Friday/Friday
#Shortness of breath
Continue dialysis as per nephrology
Continue midodrine before dialysis
Continue Sevelamer
#Severe b/l upper extremity edema
01/20/2024 left upper extremity Doppler negative
01/29/2024 right upper extremity Dopplers negative
#Benign essential hypertension
Continue amlodipine 10 mg daily
#Diabetes
Continue glargine 4 units at bedtime, diabetic diet, sliding scale insulin
#GERD
Continue PPI
#Anemia of chronic disease
Hemoglobin at baseline, continue iron supplements, trend
#History of stroke
Continue Plavix, statin
#Anxiety/depression
Continue SSRI
DVT prophylaxis�subcu heparin
Full code
Dispo - from [facility]
Total time spent to see the patient on the floor, examine the patient, review data and lab results, discuss treatment plan with patient, nursing staff around 53 minutes.
Physical Exam
General: No Apparent Distress
HEENT: NormoCephalic, Anicteric, Moist mucous membranes and Atraumatic
Respiratory: Clear
Cardiac: S1/S2 and Regular Rhythm
GI: Soft, Non Tender, Non Distended and Normal Bowel Sounds
Musculoskeletal: No Clubbing and Other (3+ severe edema of bilateral upper extremities, edema also noted in left lower extremity, right BKA noted)
Skin: Other (Left leg wound dressed)
Psych: Calm
Anticipated Discharge: 24 - 48 hours
Subjective/Interval History
-
Date of Service: January 29, 2024
Patient states his chest tightness has resolved. Now he reports bilateral shoulder blade tightness. Denies foot pain. No fever, no vomiting.
Objective Data
-
Labs:
Laboratory Results
01/29/24
05:55
WBC 6.5
Hgb 10.4 L
Hct 31.0 L
Plt Count 290
Sodium 137
Potassium 4.0
Chloride 97 L
Carbon Dioxide 26
BUN 25 H
Creatinine 2.6 H
Glucose 101 H
Calcium 7.5 L
Vital Signs:
Vital Signs
Temp Pulse Resp BP Pulse Ox
99.0 F 51 16 167/67 95
01/29/24 07:29 01/29/24 07:29 01/29/24 07:29 01/29/24 07:29 01/29/24 07:29
I&O
01/28/24 01/29/24 01/30/24
06:59 06:59 06:59
Intake Total 480 / 480
Balance 480 / 480
[2024-01-29] MEDS: DEMADEX 120 MG PO (09:07)
--- NOTE | 2024-01-29 11:42 | CM ---
manager review reviewed patient's chart and met with patient and patient states he is a snf resident at [facility] in [place], patient requires assist with adl's patient reports he was using a walker in past along with w/c, patient has a
Right BKA and nonhealing left lower wound. Patient with ESRD and is on HD. HD on Friday and Friday.
PCP: Grabiel Bansal
Pharmacy: [facility]
Plan; Patient to return to [facility] when stable.
Report [phone]
[2024-01-29 12:08] LABS: Glucose - Point of Care 116 mg/dl (70-99)
[2024-01-29] MEDS: ANCEF 5 IV (12:28)
--- NOTE | 2024-01-29 13:46 | W.PN.NEPH.PH ---
Today's Communication / Plan
-
HD tomorrow
Assessment/Plan
-
Assessment
ESRD
Hypertension
volume overload
AV fistula left upper arm
Left lower leg wound
Diabetes mellitus type 2
Rt AKA
Chest discomfort, normal troponin
Plan
Hemodialysis tomorrow
For use dialysis catheter today plan for AV fistula use without coming dialysis sessions
no RUE DVT
-
-
Date of Service: January 29, 2024
CC / HPI / ROS
-
Chief Complaint:
ESRD
History of Present Illness:
tolerated HD yesterday
BP stable high
no Chest pain
Review of Systems:
no CP/SOB
Labs
-
Labs:
WBC 6.5 10^3/uL (4.8-10.8) 01/29/24 05:55
RBC 3.63 10^6/uL (4.70-6.10) L 01/29/24 05:55
Hgb 10.4 g/dL (13.0-18.0) L 01/29/24 05:55
Hct 31.0 % (39.0-52.0) L 01/29/24 05:55
Plt Count 290 10^3/uL (130-400) 01/29/24 05:55
Sodium 137 mmol/L (135-145) 01/29/24 05:55
Potassium 4.0 mmol/L (3.5-5.1) 01/29/24 05:55
Chloride 97 mmol/L (98-107) L 01/29/24 05:55
Carbon Dioxide 26 mmol/L (22-30) 01/29/24 05:55
BUN 25 mg/dl (9-20) H 01/29/24 05:55
Creatinine 2.6 mg/dL (0.7-1.3) H 01/29/24 05:55
eGFR 27.89 01/29/24 05:55
Glucose 101 mg/dl (70-99) H 01/29/24 05:55
Calcium 7.5 mg/dl (8.4-10.2) L 01/29/24 05:55
Kti-V-Ebpvfxxrpon Pept 16485 pg/ml 01/28/24 04:25
Albumin 2.7 g/dl (3.5-5.0) L 01/28/24 04:25
Physical Exam
-
Vital Signs:
Vital Signs
Temp Pulse Resp BP Pulse Ox
98.2 F 53 17 171/60 92
01/29/24 12:14 01/29/24 12:14 01/29/24 12:14 01/29/24 12:14 01/29/24 12:14
Cardiovascular:: Regular rate and rhythm
Respiratory:: Bilateral: Coarse
Lung Excursion:: Normal
Abdomen:: Nontender and Soft
Bowel Sounds:: Normal
Extremity Edema:: None: Bilateral:
--- NOTE | 2024-01-29 14:23 | WOUNDNOTE ---
[facility] RN NOTE: Confirmed that patient is on a static air overlay and is wearing off-loading heel boot.
[2024-01-29 16:25] LABS: Glucose - Point of Care 132 mg/dl (70-99)
[2024-01-29] MEDS: DAKIN'S SOLUTION 0.125% 1/4 STRENGTH TOPICAL (21:32)
[2024-01-29] MEDS: LIPITOR 20 MG PO (21:32)
[2024-01-29] MEDS: DESYREL 100 MG PO (21:33)
[2024-01-29 21:34] LABS: Glucose - Point of Care 135 mg/dl (70-99)
[2024-01-29] MEDS: LANTUS 0.04 UNITS SC (21:34)
[2024-01-30 03:15] VITALS: BP 152/73
[2024-01-30 06:00] VITALS: BMI 29.6
[2024-01-30] MEDS: HEPARIN 500 UNITS IV ×2 (07:25→08:25)
[2024-01-30 07:28] VITALS: BP 139/63
--- NOTE | 2024-01-30 07:29 | W.PN.HOSP.TC ---
Today's Communication/Plan
-
Consult vascular surgery, consult ID
Assessment / Plan
Assessment / Plan
HPI: 58-year-old male with a past medical history of end-stage renal failure on dialysis Friday/Friday/Friday, diabetes, anemia, diabetic neuropathy, osteomyelitis status post right BKA, hypertension, hyperlipidemia, and stroke who presents with
chest pain and shortness of breath. Patient states that he woke up at 1 AM, and felt chest tightness and shortness of breath. He reports it 6 out of 10 in intensity, no aggravating or relieving factors identified. Denies nausea, vomiting. No
abdominal pain. He has chronic diarrhea. Patient was recently discharged from [facility] 4 days ago on 01/24/2024 after treatment of left lower extremity leg wound with surrounding cellulitis. He is on cefuroxime 500 mg daily through
01/29/2024, and oral vancomycin for C. difficile prophylaxis.
#Left plantar wound with surrounding cellulitis and possible abscess
Was on cefuroxime 500 mg daily through 01/29/2024, and oral vancomycin for C. difficile prophylaxis
Changed to IV Ancef renally dosed 01/28, continue wound care
Appreciate podiatry input, who feels his foot is not salvageable, and recommends ID and vascular surgery consult
#Atypical chest pain
S/p aspirin 324 mg, Nitrostat sublingual as needed
Troponins negative, chest tightness resolved, not consistent with ACS
Echo with normal biventricular size and systolic function without regional wall motion abnormalities, mild < EF 60-65%
#End-stage renal failure on dialysis Friday/Friday/Friday
#Shortness of breath
Continue dialysis as per nephrology
Continue midodrine before dialysis
Continue Sevelamer
#Severe b/l upper extremity edema
01/20/2024 left upper extremity Doppler negative for DVT
01/29/2024 right upper extremity Dopplers negative for DVT, +small chronic thrombus in the cephalic vein
#Benign essential hypertension
Continue amlodipine 10 mg daily
#Diabetes
Continue glargine 4 units at bedtime, diabetic diet, sliding scale insulin
#GERD
Continue PPI
#Anemia of chronic disease
Hemoglobin at baseline, continue iron supplements, trend
#History of stroke
Continue Plavix, statin
#Anxiety/depression
Continue SSRI
DVT prophylaxis�subcu heparin
Full code
Dispo - from [facility]
Total time spent to see the patient on the floor, examine the patient, review data and lab results, discuss treatment plan with patient, nursing staff around 43 minutes.
Physical Exam
General: No Apparent Distress
HEENT: NormoCephalic, Anicteric, Moist mucous membranes and Atraumatic
Respiratory: Clear
Cardiac: S1/S2 and Regular Rhythm
GI: Soft, Non Tender, Non Distended and Normal Bowel Sounds
Musculoskeletal: No Clubbing and Other (3+ severe edema of bilateral upper extremities, edema also noted in left lower extremity, right BKA noted)
Skin: Other (Left leg wound dressed)
Psych: Calm
Anticipated Discharge: > 48 hours
Subjective/Interval History
-
Date of Service: January 29, 2024
Reports left foot pain is tolerable. Reports some shortness of breath prior to having dialysis. No chest pain. No fever, no vomiting.
Objective Data
-
Labs:
Laboratory Results
01/29/24
05:55
WBC 6.5
Hgb 10.4 L
Hct 31.0 L
Plt Count 290
Sodium 137
Potassium 4.0
Chloride 97 L
Carbon Dioxide 26
BUN 25 H
Creatinine 2.6 H
Glucose 101 H
Calcium 7.5 L
Vital Signs:
Vital Signs
Temp Pulse Resp BP Pulse Ox
98.2 F 54 17 146/54 92
01/29/24 12:14 01/29/24 13:00 01/29/24 12:14 01/29/24 13:00 01/29/24 12:14
I&O
01/28/24 01/29/24 01/30/24
06:59 06:59 06:59
Intake Total 480 / 480
Balance 480 / 480
[2024-01-30 07:46] LABS: Glucose - Point of Care 91 mg/dl (70-99)
[2024-01-30 07:50] LABS: Hematocrit 29.7 % (39.0-52.0); Hemoglobin 10.1 g/dL (13.0-18.0)
[2024-01-30 08:03] LABS: Carbon Dioxide 26 mmol/L (22-30); Chloride 96 mmol/L (98-107); Potassium 4.1 mmol/L (3.5-5.1); Sodium 133 mmol/L (135-145)
[2024-01-30] MEDS: RETACRIT 4000 UNITS IV (08:18)
--- NOTE | 2024-01-30 08:44 | W.PN.NEPH.HD ---
Assessment
-
Patient seen on dialysis
Systolic blood pressure 156 at current UF profile
Progress Note - Hemodialysis
-
Date of Service: January 30, 2024
Duration: 30 minutes and 3 hours
Potassium Bath: 3
Calcium Bath: 2.5
Opti-Dialyzer: 160
Ultrafiltration: Other (4 kg as hemodynamically tolerated)
Blood Flow: 400
Dialysate Flow: 600
Heparin: 500 x 2
EPO: 4000
[2024-01-30] MEDS: NOVOLOG FLEXPEN-MODERATE RESISTANCE SC ×2 (09:35→11:48)
[2024-01-30] MEDS: RENVELA 800 MG PO ×3 (09:37→18:11)
[2024-01-30] MEDS: HEPARIN 5000 UNITS SC ×2 (09:37→21:12)
[2024-01-30] MEDS: JANUVIA 25 MG PO (09:38)
[2024-01-30] MEDS: PROTONIX 40 MG PO (09:40)
[2024-01-30] MEDS: BALMEX CREAM 1 APPLIC TOPICAL ×3 (09:41→21:16)
[2024-01-30] MEDS: LAC HYDRIN, AM LACTIN LOTION 1 APPLIC TOPICAL ×2 (09:41→21:14)
[2024-01-30] MEDS: HEPARIN 3200 UNITS INTRACATH (10:51)
[2024-01-30 11:42] VITALS: BP 178/68
[2024-01-30] MEDS: TYLENOL 650 MG PO (11:46)
[2024-01-30 11:49] LABS: Glucose - Point of Care 137 mg/dl (70-99)
[2024-01-30] MEDS: ProAmatine PO (11:49)
[2024-01-30] MEDS: FEOSOL 325 MG PO (11:49)
[2024-01-30] MEDS: NEPHROCAP 1 CAPSULE PO (11:49)
[2024-01-30] MEDS: NORVASC 10 MG PO (11:49)
[2024-01-30] MEDS: LEXAPRO 15 MG PO (11:50)
[2024-01-30] MEDS: DEMADEX 120 MG PO (11:50)
[2024-01-30] MEDS: PLAVIX 75 MG PO (11:51)
[2024-01-30] MEDS: FIRVANQ 125 MG PO (11:54)
[2024-01-30] MEDS: DAKIN'S SOLUTION 0.125% 1/4 STRENGTH 473 ML TOPICAL (11:55)
--- NOTE | 2024-01-30 12:16 | CM ---
Chart reviewed and patient to return to [facility] when stable.
Plan; Patient to return to [facility] when stable.
Report [phone]
--- NOTE | 2024-01-30 13:30 | WOUNDNOTE ---
L FOOT (PLANTAR MEDIAL)
--- NOTE | 2024-01-30 13:32 | WOUNDNOTE ---
L HEEL (after bedside debridement by podiatry)
--- NOTE | 2024-01-30 13:33 | WOUNDNOTE ---
L HEEL (after bedside debridement by podiatry)
--- NOTE | 2024-01-30 13:33 | WOUNDNOTE ---
L FOOT (after bedside debridement by podiatry)
--- NOTE | 2024-01-30 13:34 | WOUNDNOTE ---
L FOOT (after bedside debridement by podiatry)
--- NOTE | 2024-01-30 13:37 | WOUNDNOTE ---
[facility] RN note: Patient is on a Waffle air overlay. TruVue lite boot on LLE. Sacral/buttocks chafed and red. R groin bruise. L lateral 5th toe and lateral 5th MTH with small purple area. L heel wet eschar. L plantar foot with moist black tissue with
purulent drainage coming from deep section that probes deep in plantar foot. Patient seen with Dr. Montesinos who did some bedside sharp debridement of L plantar foot and L heel. Patient had an arteriogram during last recent admission. Unable to
palpate pedal pulse. L foot warm. Dr. Montesinos plans to request vascular and ID consults. Assisted mail distribution clerk with dressing to L foot and heel (Dakin's moistened gauze, ABD pad, Kerlix). Dr. Montesinos requested nursing to do BID dressing changes
for now. Updated RN Dee Dee. Care plan to be updated. Will follow peripherally as needed.
--- NOTE | 2024-01-30 13:52 | CON.MD ---
Consultation - Medical
-
58 year old male admitted from nursing facility with sudden onset of chest pain and upper extremity edema. Consulted today to assess left foot wounds. He was discharged on 01/24/24 from [facility] after treatment for LLE cellulitis and PAD
including IV antibiotic therapy, angiogram of femoral artery and angioplasty of left popliteal artery. PMH includes ESRD on HD, diabetes with neuropathy, BKA right LE.
Patient seen with Wound care (Skyla). Pictures available in wound care documentation. No general LE edema noted. Left lateral heel with well circumscribed area of soft tissue necrosis. No surrounding erythema and no drainage. Incisional
debridedment revealed necrosis down to and including deep tissue distally and proximal wound margin with some active bleeding. Plantar lesion encompasses the central arch area medial to lateral with malodor, purulent drainage and wet gangrene down
to and including deep tissue. Entire area of affected soft tissue is not viable as there was no active bleeding after incisional debridement. Open ulcer 0.5 cm at the medial proximal aspect of the necrosis probes distally as well as deep to bone.
Copious amount of purulence with malodor expressed from the wound. No ascending cellulitis noted.
Impression/Plan
Severe PAD status post LLE popliteal angioplasty 01/22/24
ESRD on HD
Diabetes with peripheral neuropathy left LE and AKA right LE
Infected wounds plantar left foot and left heel with necrosis and purulent drainage.
Contacted hospitalist to order Vascular and ID consults. The sudden increase in severity of plantar left foot and heel wounds from last admission, purulent discharge and extent of soft tissue necrosis indicate poor prognosis for limb salvage.
[2024-01-30 15:48] VITALS: BP 175/66
--- NOTE | 2024-01-30 15:58 | CON.VAS ---
Addendum entered and electronically signed by Shaheed Mae MD 02/02/24 15:26:
Seen and examined with VENECIA Umanzor. Agree with findings as noted below. Seen by Dr. Jackson from our practice over the weekend. See her note. See my separate update note from today.
Original Note:
Consultation
Consultation Request
Date/Time Consultation Performed: 01/30/2024 1600
Requesting Provider: Hospitalist
Performing Provider: Amanda Umanzor, VENECIA-C for Shaheed Mae MD
Reason for Consultation: Worsening of chronic left foot wound
Medical History
-
Chief Complaint: Left foot wound
History of Present Illness:
This is a 58 yo male with significant past medical history of ESRD on dialysis, CHF, hypertension, hyperlipidemia, neurogenic bladder, chronic wounds, right-sided BKA who presented to ED on 01/28/2024 with reports of chest pain, shortness of breath,
and increased extremity swelling. Of note he was recently admitted here at [facility] from 01/11/2024 to 01/24/2024 for management of cellulitis and blister to left foot, vascular surgery was consulted for suspected peripheral arterial
disease contributing to nonhealing wound. Patient underwent left lower extremity arteriogram with balloon angioplasty to below the knee popliteal artery stenosis on 01/22/[address] Shaheed Mae. Patient states he is feeling much improved from
chest pain which was ruled out as a cardiac source by hospitalist team. Overall he has no complaints, but does note newer onset of foul-smelling drainage from left foot. Podiatry was consulted who feel that limb salvage is not a viable option,
thus prompting vascular surgery consultation. Patient denies fever, chills, nausea, and vomiting. He endorses no difficulty with AV fistula access.
Past Medical History
Past Medical History: CHF, CVA (Residual left-sided weakness), HTN, Hypercholesterolemia, IDDM, Renal Failure (On HD) and Other (Nonhealing foot wounds, C. difficile, neurogenic bladder)
Past Surgical History: Orthopedic (Right BKA, AV fistula creation)
Social History
Tobacco: Non-Smoker
Alcohol: None
Drug: None
Personal: Single
Living: Prison
Allergies / Home Medications
Allergy/AdvReac Type Severity Reaction Status Date / Time
No Known Allergies Allergy Verified 01/28/24 04:16
�Medication �Instructions �Recorded �Confirmed �Type
atorvastatin 20 mg tablet 20 mg PO HS High cholesterol 05/21/21 01/28/24 History
clopidogrel 75 mg tablet 75 mg PO DAILY Blood clot 05/21/21 01/28/24 History
prevention/tx
ergocalciferol (vitamin D2) 1,250 50,000 units PO Q30D Supplement 05/21/21 01/28/24 History
mcg (50,000 unit) capsule
amlodipine 10 mg tablet 10 mg PO DAILY Blood pressure 06/05/21 01/28/24 History
sorbitol 70 % solution 30 ml PO DAILYPRN PRN if no bm in 06/21/21 01/28/24 History
3 days
omeprazole 20 mg capsule,delayed 40 mg PO DAILY Gastrointestinal 09/18/21 01/28/24 History
release issue
bisacodyl 10 mg rectal suppository 10 mg NH DAILYPRN PRN if sorbitol 09/19/21 01/28/24 History
(OneLAX Bisacodyl) ineffective
trazodone 100 mg tablet 100 mg PO HS Sleep 09/19/21 01/28/24 History
midodrine 10 mg tablet 10 mg PO MOWEFR prior to HD, HOLD 11/26/21 01/28/24 History
SBP >140
acetaminophen 325 mg tablet 650 mg PO Q6HPRN PRN mild 12/03/21 01/28/24 History
pain/temp>101
insulin glargine 100 unit/mL (3 4 unit SC HS Diabetes 12/22/21 01/28/24 History
mL) subcutaneous pen (Basaglar
KwikPen U-100 Insulin)
escitalopram oxalate 10 mg tablet 15 mg PO DAILY Depression 11/20/23 01/28/24 History
ferrous sulfate 325 mg (65 mg 325 mg PO DAILY Supplement 11/20/23 01/28/24 History
iron) tablet (FeroSul)
insulin aspart U-100 100 unit/mL 1 sliding scale dose SC AC Diabetes 11/20/23 01/28/24 History
(3 mL) subcutaneous pen (Novolog
FlexPen U-100 Insulin aspart)
linagliptin 5 mg tablet (Tradjenta) 5 mg PO DAILY Diabetes 11/20/23 01/28/24 History
loperamide 2 mg capsule (Imodium 2 mg PO BIDPRN PRN DIARRHEA 11/20/23 01/28/24 History
A-D)
polyethylene glycol 3350 17 gram 17 g PO DAILY Constipation 11/20/23 01/28/24 History
oral powder packet (Miralax)
sodium polystyrene sulfonate 15 15 g PO DAILYPRN PRN MISSED 11/20/23 01/28/24 History
gram/60 mL oral suspension DIALYSIS-High potassium
teriparatide 20 mcg/dose (600 20 mcg SC DAILY osteoporosis 11/20/23 01/28/24 History
mcg/2.4 mL) subcutaneous pen
injector
zinc oxide-vitamin B5-vit E 11.3% 1 applic topical TID BUTTOCKS 11/20/23 01/28/24 History
topical cream (Balmex Adult [facility])
diclofenac sodium 1 % topical gel 4 g topical Q4HPRN PRN left thigh 01/19/24 01/28/24 History
(Arthritis Pain (diclofenac))
ondansetron HCl 4 mg tablet 4 mg PO Q8HPRN PRN nausea 01/19/24 01/28/24 History
sevelamer carbonate 800 mg tablet 800 mg PO TID Kidney Disease 01/19/24 01/28/24 History
(Renvela)
torsemide 20 mg tablet 120 mg PO DAILY Fluid 01/19/24 01/28/24 History
Retention/Swelling
ammonium lactate 12 % lotion 1 applic topical BID left foot 01/28/24 01/28/24 History
cefuroxime axetil 500 mg tablet 500 mg PO DAILY Infection 01/28/24 01/28/24 History
vancomycin 50 mg/mL oral solution 125 mg PO DAILY infection 01/28/24 01/28/24 History
vitamin B complex and vitamin C 1 cap PO DAILY Supplement 01/28/24 01/28/24 History
no.20-folic acid 1 mg capsule
(Renal Caps)
Review of Systems
-
History Source: Patient
Constitutional: Reports No Symptoms
EENT: Reports No Symptoms
Respiratory: Reports Other (Shortness of breath on admission but now resolved)
Cardiac: Reports Chest Pain (On admission but now resolved)
Abdomen/GI: Reports No Symptoms
: Reports No Symptoms
Musculoskeletal: Reports No Symptoms
Skin: Reports Other (Foul-smelling drainage from left foot with pain)
Neurological: Reports No Symptoms
Endocrine: Reports No Symptoms
Physical Exam
Vital Signs
Temp Pulse Resp BP Pulse Ox
98.2 F 49 18 175/66 98
01/30/24 15:48 01/30/24 15:48 01/30/24 15:48 01/30/24 15:48 01/30/24 15:48
Lab Results
01/30/24 07:41
01/30/24 07:41
Troponin I < 0.012 ng/ml 01/29/24 00:33
Dih-B-Xnjydqtyskf Pept 05986 pg/ml 01/28/24 04:25
Physical Exam
General: No Apparent Distress and Comfortable
HEENT: Normocephalic, Anicteric and Atraumatic
Respiratory: Non Labored Respirations
Cardiac: Negative JVD
GI: Soft, Non Tender and Non Distended
Skin: Other (Left midfoot with large area of erythema and noted drainage, left heel with eschar, see picture in HPI)
Neuro: AO x 3
Pulses: Left Dorsalis Pedis: Doppler and Left Posterior Tibial: Doppler
Assessment / Plan
-
Assessment: 58-year-old male with chronic left foot wound, suspected acute infection, at high risk for limb loss
Plan:
Will obtain noninvasive arterial ultrasound with WALKER/TBI to evaluate post endovascular intervention of balloon angioplasty to below-knee popliteal artery stenosis
Reviewed case with marketing operations specialist Dr. Joana Montesinos given large area of plantar midfoot that is gangrenous, podiatry feels limb salvage is unlikely
Will obtain MRI to evaluate for osteomyelitis to help determine recommendation of amputation vs. attempts at continued limb salvage.
Infectious disease on board appreciate recommendations, wound cultures ordered
Continue local wound care
Given extent of infection and comorbidities patient is at high risk for limb loss
Reviewed HPI, physical exam, and blood work with attending Dr. Shaheed Mae, who agrees with above plan.
I performed this shared service with the attending. I evaluated the patient [id number] and have entered clinical documentation as shown in the encounter note. I performed the following component(s): history and physical exam. Note that medical
decision making is not final until attested by vascular attending.
[2024-01-30 16:59] LABS: Glucose - Point of Care 159 mg/dl (70-99)
--- NOTE | 2024-01-30 17:37 | PTCARENOTE ---
patient tolerated hemodialysis this am, medicated with PRN TYlenol for c/o pain in left lower leg with relief from 6 to 3/10, tolerating diet, turns with assistx2, vss, will continue to monitor.
[2024-01-30] MEDS: NOVOLOG FLEXPEN-MODERATE RESISTANCE 1 UNITS SC (18:11)
[2024-01-30] MEDS: ANCEF 5 IV (18:14)
[2024-01-30 19:40] VITALS: BP 132/54
[2024-01-30 21:05] LABS: Glucose - Point of Care 135 mg/dl (70-99)
[2024-01-30] MEDS: LIPITOR 20 MG PO (21:12)
[2024-01-30] MEDS: DESENEX/MITRAZOL/ZEASORB 1 APPLIC TOPICAL (21:13)
[2024-01-30] MEDS: DAKIN'S SOLUTION 0.125% 1/4 STRENGTH TOPICAL ×2 (21:14→21:24)
[2024-01-30] MEDS: DESYREL 100 MG PO (21:19)
[2024-01-30] MEDS: LANTUS 0.04 UNITS SC (21:19)
[2024-01-30 23:31] VITALS: BP 140/60
[2024-01-31] VITALS (7 sets, daily range): BP systolic 122–147; BP diastolic 52–65; BMI 29.1
--- NOTE | 2024-01-31 07:31 | CON.ID ---
Consultation
-
Date/Time Consultation Requested: 01/30/24 13:40
Date/Time Consultation Performed: 01/31/24 12:40
Requesting Provider: Dr Bravo
Performing Provider: Dr Selby
Reason for Consultation: midfoot suspected abscess
Chief Complaint / Past History
Chief Complaint
Chest tightness, SOB, edema
History of Present Illness
Mr Tillman is a 58 year old male with history of ESRD on HD, diabetic neuropathy, PAD, osteomyelitis s/p R BKA, C diff x2 2021, who presented here 01/27 for chest tightness and shortness of breath that awoke him from sleep. Of note he was admitted here
on 01/23 for left foot blisters and redness. Symptoms first began with about two weeks of general swelling, then he developed a blister on the heel and also on the plantar aspect. The heel opened and formed an eschar. The midfoot blister developed
surrounding erythema and he was referred here. He was diagnosed with cellulitis and a necrotic wound of the L heel. 01/21 he underwent LLE balloon angiopasty. He was initially started on vancomycin/cefepime and maintained on cefepime, then on
01/22 switched to cefuroxime 500 mg po q24 hours through 01/28 - a 10 day total course. He was also started on oral vancomycin for C difficile prophylaxis which has continued to present
Since arrival here he has been afebrile, bp stable, inital wbc count was 7.5 now 6.0, hgb 10.4, plt 279, no L shift on arrival, K 4.0, cr 2.6, CXR residual small pleural effusions, US: no RUE dvt, small chronic thrombus in the cephalic vein,
artieral study on the LE done yesterday but report not yet available - vascular note reports adequae perfusion, on exam liquefactive necrosis of the left midfoot noted, he is awaiting MRI of the foot, cultures were requested by me but not yet done.
ID is consulted for assistance with management. A nasal swab for MRSA on 01/27 was negtaive, also negative 01/18. Patient is currently on cefazlin and oral vancomycin. ID is consulted for assistance with management.
Past History
Additional Past Medical History:
ESRD on HD
Anemia of Chronic Disease
Diabetes Mellitus, Insulin-Dependent
Diabetic Neuropathy
CVA
Osteomyelitis Right Foot/Ankle s/p Right BKA
Essential Hypertension
Hyperlipidemia
Left Humerus Fracture
Past Surgical History: Reports Other
Additional Past Surgical History:
Left Upper Ext AV Fistula
Right BKA
Allergy History:
No Known Allergies Allergy (Verified 01/28/24 04:16)
Medications Reviewed: Yes
Social History
Tobacco: Non-Smoker
Alcohol: None
Drug: None
Family History
Family History: Not Pertinent
Review of Systems
Review of Systems
General: Negative Fever or Chills
All systems: All other systems were reviewed and were negative
Vital Signs
Temp Pulse Resp BP Pulse Ox
99.6 F 53 17 137/57 96
01/31/24 03:25 01/31/24 03:25 01/31/24 03:25 01/31/24 03:25 01/31/24 03:25
Physical Exam
Physical Exam
Constitutional: No Acute Distress
Cardiovascular: Regular Rate and S1/S2; Negative Murmur or Rub
Pulmonary: Clear and Symmetric; Negative Wheezes, Rales or Rhonchi
Gastrointestinal: Soft, Non Tender, Non Distended and Normal Bowel Sounds
Skin: Warm and Dry; Negative Rash or Jaundice
Wound: Other (midfoot tunneling wound deepest is about 4 cm tunneling laterally - no probe to bone, anaerobic type odor noted, purulent drainage from the wound and also some new purulent drainage from under the more distal eschar)
Neurological: Awake
Lines: HD Cath (no erythema, warmth, or tenderness)
Lab / Diagnostic Study Results
Abs Immat Gran (auto) 0.1 10^3/uL (0-0.05) H 01/28/24 04:25
Absolute Neuts (auto) 5.1 10^3/uL (1.4-6.5) 01/28/24 04:25
Absolute Lymphs (auto) 1.5 10^3/uL (1.2-3.4) 01/28/24 04:25
Absolute Monos (auto) 0.6 10^3/uL (0.1-0.6) 01/28/24 04:25
Absolute Basos (auto) 0.1 10^3/uL (0-0.2) 01/28/24 04:25
Immature Gran % 0.8 % (0-0.5) H 01/28/24 04:25
Neutrophils % 68.6 % (42.2-75.2) 01/28/24 04:25
Lymphocytes % 19.8 % (20.5-51.1) L 01/28/24 04:25
Monocytes % 8.6 % (1.7-9.3) 01/28/24 04:25
Eosinophils % 1.5 % (0-6) 01/28/24 04:25
Basophils % 0.7 % (0-2) 01/28/24 04:25
Microbiology Results
Micro:
01/28/24 16:03 MRSA Screen - Final
Nose No Methicillin Resistant Staphylococcus aureus isolated.
Assessment / Plan
L Diabetic Foot Infection
- tunneling wound/abscess midfoot and forefoot
- eschar over the heel firm, no drainage
Neuropathy
PAD
ESRD on HD via tunneled line
C difficile colonization
H/o RLE amputation
- deep wound cultures - aerobic and anaerobic obtained by me and given to PCT to send to lab
- no need for blood cultures at this time
- recent MRSA nasal PCR negative
- start zosyn - renally dosed; stop cefazolin
- continue oral vancomycin for secondary ppx of C difficile
- MRI ordered - awaiting report
[2024-01-31 08:08] LABS: Glucose - Point of Care 94 mg/dl (70-99)
--- NOTE | 2024-01-31 08:25 | W.PN.HOSP.TC ---
Today's Communication/Plan
-
see bold
Assessment / Plan
Assessment / Plan
HPI: 58-year-old male with a past medical history of end-stage renal failure on dialysis Friday/Friday/Friday, diabetes, anemia, diabetic neuropathy, osteomyelitis status post right BKA, hypertension, hyperlipidemia, and stroke who presents with
chest pain and shortness of breath. Patient states that he woke up at 1 AM, and felt chest tightness and shortness of breath. He reports it 6 out of 10 in intensity, no aggravating or relieving factors identified. Denies nausea, vomiting. No
abdominal pain. He has chronic diarrhea. Patient was recently discharged from [facility] 4 days ago on 01/24/2024 after treatment of left lower extremity leg wound with surrounding cellulitis. He is on cefuroxime 500 mg daily through
01/29/2024, and oral vancomycin for C. difficile prophylaxis.
#Left plantar wound with surrounding cellulitis and possible abscess
Was on cefuroxime 500 mg daily through 01/29/2024, and oral vancomycin for C. difficile prophylaxis
Changed to IV Ancef renally dosed 01/28, continue wound care
Appreciate podiatry input, who feels his foot is not salvageable
Appreciate vascular surgery input, follow-up MRI of left foot, and LLE arterial US
ID following
#Atypical chest pain
S/p aspirin 324 mg, Nitrostat sublingual as needed
Troponins negative, chest tightness resolved, not consistent with ACS
Echo with normal biventricular size and systolic function without regional wall motion abnormalities, mild < EF 60-65%
#End-stage renal failure on dialysis Friday/Friday/Friday
#Shortness of breath
Continue dialysis as per nephrology
Continue midodrine before dialysis
Continue Sevelamer
#Adjustment disorder with depressed mood
Appreciate psychiatry input, who states patient is not suicidal.
No need for one-to-one
Patient declined increasing his Lexapro dose
#Severe b/l upper extremity edema
01/20/2024 left upper extremity Doppler negative for DVT
01/29/2024 right upper extremity Dopplers negative for DVT, +small chronic thrombus in the cephalic vein
#Benign essential hypertension
Continue amlodipine 10 mg daily
#Diabetes
Continue glargine 4 units at bedtime, diabetic diet, sliding scale insulin
#GERD
Continue PPI
#Anemia of chronic disease
Hemoglobin at baseline, continue iron supplements, trend
#History of stroke
Continue Plavix, statin
#Anxiety/depression
Continue SSRI
DVT prophylaxis�subcu heparin
Full code
Dispo - from [facility]
Total time spent to see the patient on the floor, examine the patient, review data and lab results, discuss treatment plan with patient, nursing staff around 50 minutes.
Physical Exam
General: No Apparent Distress
HEENT: NormoCephalic, Anicteric, Moist mucous membranes and Atraumatic
Respiratory: Clear
Cardiac: S1/S2 and Regular Rhythm
GI: Soft, Non Tender, Non Distended and Normal Bowel Sounds
Musculoskeletal: No Clubbing and Other (3+ severe edema of bilateral upper extremities, edema also noted in left lower extremity, right BKA noted)
Skin: Other (Left leg wound dressed)
Psych: Calm
Anticipated Discharge: > 48 hours
Subjective/Interval History
-
Date of Service: January 31, 2024
Patient is really upset that he may lose his left foot. He states that he wants to but has no plan. No fever, no vomiting.
Objective Data
-
Labs:
Laboratory Results
01/31/24
06:00
WBC Pending
Hgb Pending
Hct Pending
Plt Count Pending
Sodium Pending
Potassium Pending
Chloride Pending
Carbon Dioxide Pending
BUN Pending
Creatinine Pending
Glucose Pending
Calcium Pending
Vital Signs:
Vital Signs
Temp Pulse Resp BP Pulse Ox
99.6 F 53 17 137/57 96
01/31/24 03:25 01/31/24 03:25 01/31/24 03:25 01/31/24 03:25 01/31/24 03:25
I&O
01/30/24 01/31/24 02/01/24
06:59 06:59 06:59
Intake Total 540 / 540 1320 / 1320
Balance 540 / 540 1320 / 1320
--- NOTE | 2024-01-31 08:33 | W.PN.VS ---
Today's Communication / Plan
-
Continue ABx and wound care
Pending MRI
Decision regarding limb salvage vs BKA to be made pending results of MRI
Assessment/Plan
-
Continue ABx and wound care
Pending MRI
Decision regarding limb salvage vs BKA to be made pending results of MRI
Subjective Data
-
Date of Service: January 31, 2024
Liquifactive necrosis of plantar foot
Arterial studies with patent pop and toe pressure 110mmHg suggesting adequate perfusion
MRI pending
Objective Data
-
Vital Signs
Temp Pulse Resp BP Pulse Ox
99.6 F 53 17 137/57 96
01/31/24 03:25 01/31/24 03:25 01/31/24 03:25 01/31/24 03:25 01/31/24 03:25
Intake and Output
01/30/24 01/31/24 02/01/24
06:59 06:59 06:59
Intake Total 540 / 540 1320 / 1320
Balance 540 / 540 1320 / 1320
Intake:
Oral fluids 540 / 540 1320 / 1320
Other:
Number of approximated SMALL 1
amounts of urine
Calcium 7.5 mg/dl (8.4-10.2) L 01/29/24 05:55
Magnesium 2.1 mg/dl (1.6-2.3) 01/29/24 05:55
Total Bilirubin 0.5 mg/dl (0.2-1.3) 01/28/24 04:25
AST 25 U/L (17-59) 01/28/24 04:25
ALT 20 U/L (0-50) 01/28/24 04:25
Alkaline Phosphatase 177 U/L (38-126) H 01/28/24 04:25
Total Protein 5.7 g/dl (6.3-8.2) L 01/28/24 04:25
Albumin 2.7 g/dl (3.5-5.0) L 01/28/24 04:25
Physical Exam
-
liquifactive necrosis of plantar foot
foul odor
mild surrounding erythema
no tenderness to calf squeeze
[2024-01-31] MEDS: DEMADEX 120 MG PO (08:45)
[2024-01-31] MEDS: PROTONIX 40 MG PO (08:45)
[2024-01-31] MEDS: RENVELA 800 MG PO ×3 (08:45→17:44)
[2024-01-31] MEDS: FEOSOL 325 MG PO (08:45)
[2024-01-31] MEDS: NEPHROCAP 1 CAPSULE PO (08:45)
[2024-01-31] MEDS: NORVASC 10 MG PO (08:45)
[2024-01-31] MEDS: LEXAPRO 15 MG PO (08:45)
[2024-01-31] MEDS: PLAVIX 75 MG PO (08:45)
[2024-01-31] MEDS: NOVOLOG FLEXPEN-MODERATE RESISTANCE SC ×3 (08:46→17:44)
[2024-01-31] MEDS: JANUVIA 25 MG PO (08:46)
[2024-01-31] MEDS: BALMEX CREAM 1 APPLIC TOPICAL ×3 (08:47→22:20)
[2024-01-31] MEDS: DESENEX/MITRAZOL/ZEASORB 1 APPLIC TOPICAL ×2 (08:47→20:23)
[2024-01-31] MEDS: FIRVANQ 125 MG PO (08:47)
[2024-01-31] MEDS: DAKIN'S SOLUTION 0.125% 1/4 STRENGTH 1 ML TOPICAL (08:47)
[2024-01-31] MEDS: LAC HYDRIN, AM LACTIN LOTION 1 APPLIC TOPICAL ×2 (08:48→20:24)
[2024-01-31] MEDS: HEPARIN 5000 UNITS SC ×2 (08:48→20:24)
[2024-01-31 08:58] LABS: Hematocrit 31.8 % (39.0-52.0); Hemoglobin 10.4 g/dL (13.0-18.0); Mean Corp Hgb Conc. 32.7 g/dL (33.0-37.0); Mean Corpuscular Hgb 29.5 pg (27.0-31.0); Mean Corpuscular Volume 90.1 fL (80.0-94.0); Mean Platelet Volume 9.7 fL (7.4-10.4); Platelet Count 279 10^3/uL (130-400); Red Blood Cell Count 3.53 10^6/uL (4.70-6.10); Red Cell Dist. Width 16.7 % (11.5-14.5)
--- NOTE | 2024-01-31 09:08 | W.PN.NEPH.PH ---
Today's Communication / Plan
-
next HD friday
Assessment/Plan
-
Assessment
ESRD
Hypertension
volume overload
AV fistula left upper arm
Left lower leg wound
Diabetes mellitus type 2
Rt AKA
Chest discomfort, normal troponin
Plan
Hemodialysis Friday
For use dialysis catheter today plan for AV fistula use without coming dialysis sessions
no RUE DVT
-
-
Date of Service: January 31, 2024
CC / HPI / ROS
-
Chief Complaint:
ESRD
History of Present Illness:
tolerated HD yesterday ESRD: MWF
BP stable high
no Chest pain
Review of Systems:
no CP/SOB
weights down
Labs
-
Labs:
WBC 6.0 10^3/uL (4.8-10.8) 01/31/24 08:42
RBC 3.53 10^6/uL (4.70-6.10) L 01/31/24 08:42
Hgb 10.4 g/dL (13.0-18.0) L 01/31/24 08:42
Hct 31.8 % (39.0-52.0) L 01/31/24 08:42
Plt Count 279 10^3/uL (130-400) 01/31/24 08:42
eGFR 27.89 01/29/24 05:55
Ycz-H-Incolexrhzq Pept 83856 pg/ml 01/28/24 04:25
Albumin 2.7 g/dl (3.5-5.0) L 01/28/24 04:25
Physical Exam
-
Vital Signs:
Vital Signs
Temp Pulse Resp BP Pulse Ox
99.6 F 53 17 137/57 96
01/31/24 03:25 01/31/24 03:25 01/31/24 03:25 01/31/24 03:25 01/31/24 03:25
Cardiovascular:: Regular rate and rhythm
Respiratory:: Bilateral: Coarse
Lung Excursion:: Normal
Abdomen:: Nontender and Soft
Bowel Sounds:: Normal
Extremity Edema:: None: Bilateral:
[2024-01-31 09:12] LABS: Blood Urea Nitrogen 28 mg/dl (9-20); Calcium 7.5 mg/dl (8.4-10.2); Carbon Dioxide 25 mmol/L (22-30); Chloride 97 mmol/L (98-107); Estimated Creatinine Clearance 25 ml/min; Glucose 105 mg/dl (70-99); Phosphorus 3.2 mg/dl (2.5-4.5); Potassium 4.5 mmol/L (3.5-5.1); Sodium 134 mmol/L (135-145); eGFR 24.46
[2024-01-31 11:03] LABS: Glucose - Point of Care 89 mg/dl (70-99)
--- NOTE | 2024-01-31 11:39 | PTCARENOTE ---
Pt alert x3 flat withdrawn very sad looking. I asked him what was going on and why he looked so gloomy. he stated, ' you would too if you found you were going to have no legs,' I provided emotional support and inquired what was going on. pt very sad
about hearing the news of possibly loosing remaining leg. He stated 'i always said if i would lose my other leg, i would end it,' I asked what end it meant, he meant take his life. I asked him if he had a plan and he stated, ' i cannot say right
now.' I provided alot of emotional support and informed the MD. Pt placed on immediate suicide watch and psych was ordered
--- NOTE | 2024-01-31 12:09 | CON.MD ---
Consultation - Medical
-
Asked to see this 58 y/o single man who expressed suicidal sentiments today when told there was a good chance of having a second lower extremity amputation. He was admitted 01/27 from [facility] due to chest pain likely from fluid overload. Is on
hemodialysis 3 d/week. Is IDDM for T2DM, has htn, CHF, hx CVA (left sided weakness), hypercholesterolemia, neurogenic bladder and non-healing foot wound. Although he was unaware of it, is on Lexapro (escitalopram) 15 mg. a day and also trazlodone
100 mg. HS. Apparently not under psychiatric care. He was told this morning that there is a good chance of needing the amputation which made him feel like his plans of getting his own apartment will be canceled. Has been living in the [place] nearly 3
years and is working with a protective services social worker from the [facility] on getting his own apartment. A friend, Terry, has also told him he will help him out. He is overall unhappy at [facility] due to the large population of people with severe mental illness
and elderly with dementia.
He has a longstanding pattern of waking up at 3 AM -- had done this in the past to get ready for work. He admits to napping Appetite is good. No anhedonia. Has only hallucinated when delirious from a medical procedure.
PH: Saw a psychiatrist in [place] 15-20 years ago for anger problem. Was not treated with medicine. Never suicidal. Was not aware of being treated with Lexapro and does not know who prescribed it.
FH: Parents are both . Had a loving marriage. FAther was hard working. Mother also worked and was described as 'loving.' Fa in 2015 and mother in 2022 -- both had dementia. Mother would cry at night but never sought treatment for
depression and was never incapacitated by depression. No known family history of serious mental illness or suicide. Some cousins drank and one sister drank. Has two sisters. Domi lives in the [facility] and he is close to her. Nadia is in a rehab
in [place] because she 'cannot move.' She used to drink. He was never close to her.
SH: Raised in [place]. Graduated from [facility] schooland [employer] studying business. Played sports in [employer] -- track and wrestling. Was living on his own before the amputation 3 years ago. He never had a drinking problem and never used illicit
drugs. Has been in relationships. No children. 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 At the [place], enjoys playing his [employer] and watching football. Gets along with his roommate. Has a friend, Terry, who visits him. Was a
co-worker. Also is friends with Huber and his Rani whom he has known for many yeas.
MSE: Middle aaged bearded man who is hard of hearing. Alert and oriented. Pleasant and engaged in conversation with me. While he is depressed over his medical condition and possibility of second amputation, He denies being suicidal; had more felt
'what's the point of living?' When told that he should still be able to have his own apartment even if he has an amputation he felt more hopeful. He is angry that prayer has not helped him. Affect is somewhat blunted, but appropriate. Denies
hallucinations and does not appear to be paranoid or delusional. Likely average intelligence. Overall seems to use good judgment.
He is awaiting an MRI to determine viability of his foot. He would very much like to save it. Has had bradycardia since admission. Blood sugars in normal range. Hgb. 10.6,Hct 31%. Afebrile. BP 144/59, P 53, RR 16, T 98.9, O2Sat 98%
Diagnosis: Adjustment Disorder with Depressed Mood
Not suicidal
Spoke to nurse who spoke to Dr. Bravo. Discontinuing 1:1 and no precautions needed for suicidality.
I offered to increase Lexapro to 20 mg. (maximum dose), but pt. decilined for no given reason. I also offered to see him again tomorrow if my schedule allows and he said he would like that.
Might benefit from meeting with his [facility] protective services social worker regarding options should he have second limb amputation.
[2024-01-31] MEDS: ZOSYN 50 IV ×2 (14:59→22:00)
[2024-01-31 16:36] LABS: Glucose - Point of Care 104 mg/dl (70-99)
[2024-01-31] MEDS: DAKIN'S SOLUTION 0.125% 1/4 STRENGTH 473 ML TOPICAL (20:24)
[2024-01-31 21:39] LABS: Glucose - Point of Care 118 mg/dl (70-99)
[2024-01-31] MEDS: LANTUS 0.04 UNITS SC (21:59)
[2024-01-31] MEDS: DESYREL 100 MG PO (21:59)
[2024-01-31] MEDS: LIPITOR 20 MG PO (21:59)
[2024-02-01 03:32] VITALS: BP 147/66
[2024-02-01] MEDS: ZOSYN 50 IV ×3 (05:51→22:08)
[2024-02-01 06:00] VITALS: BMI 29.2
[2024-02-01 06:03] LABS: Hematocrit 31.9 % (39.0-52.0); Hemoglobin 10.3 g/dL (13.0-18.0); Mean Corp Hgb Conc. 32.3 g/dL (33.0-37.0); Mean Corpuscular Hgb 28.9 pg (27.0-31.0); Mean Corpuscular Volume 89.6 fL (80.0-94.0); Mean Platelet Volume 9.8 fL (7.4-10.4); Platelet Count 290 10^3/uL (130-400); Red Blood Cell Count 3.56 10^6/uL (4.70-6.10); Red Cell Dist. Width 16.6 % (11.5-14.5); White Blood Cell Count 6.3 10^3/uL (4.8-10.8)
[2024-02-01 06:25] LABS: Blood Urea Nitrogen 42 mg/dl (9-20); Calcium 7.7 mg/dl (8.4-10.2); Carbon Dioxide 25 mmol/L (22-30); Chloride 98 mmol/L (98-107); Estimated Creatinine Clearance 21 ml/min; Glucose 101 mg/dl (70-99); Potassium 4.9 mmol/L (3.5-5.1); Sodium 136 mmol/L (135-145); eGFR 19.52
[2024-02-01 06:41] LABS: Glucose - Point of Care 161 mg/dl (70-99)
[2024-02-01 07:00] VITALS: BP 134/55
[2024-02-01] MEDS: NOVOLOG FLEXPEN-MODERATE RESISTANCE 1 UNITS SC (08:23)
[2024-02-01] MEDS: PLAVIX 75 MG PO (08:24)
[2024-02-01] MEDS: NEPHROCAP 1 CAPSULE PO (08:24)
[2024-02-01] MEDS: DEMADEX 120 MG PO (08:24)
--- NOTE | 2024-02-01 08:24 | W.PN.HOSP.TC ---
Today's Communication/Plan
-
see bold
Assessment / Plan
Assessment / Plan
HPI: 58-year-old male with a past medical history of end-stage renal failure on dialysis Friday/Friday/Friday, diabetes, anemia, diabetic neuropathy, osteomyelitis status post right BKA, hypertension, hyperlipidemia, and stroke who presents with
chest pain and shortness of breath. Patient states that he woke up at 1 AM, and felt chest tightness and shortness of breath. He reports it 6 out of 10 in intensity, no aggravating or relieving factors identified. Denies nausea, vomiting. No
abdominal pain. He has chronic diarrhea. Patient was recently discharged from [facility] 4 days ago on 01/24/2024 after treatment of left lower extremity leg wound with surrounding cellulitis. He is on cefuroxime 500 mg daily through
01/29/2024, and oral vancomycin for C. difficile prophylaxis.
#Left plantar wound with surrounding cellulitis and possible abscess
Was on cefuroxime 500 mg daily through 01/29/2024, and oral vancomycin for C. difficile prophylaxis
Appreciate ID input, IV Ancef changed to IV Zosyn renally dosed, will need cultures from the OR
Appreciate podiatry input, who feels his foot is not salvageable
Appreciate vascular surgery input, follow-up MRI of left foot, and LLE arterial US
#Atypical chest pain
S/p aspirin 324 mg, Nitrostat sublingual as needed
Troponins negative, chest tightness resolved, not consistent with ACS
Echo with normal biventricular size and systolic function without regional wall motion abnormalities, mild < EF 60-65%
#End-stage renal failure on dialysis Friday/Friday/Friday
#Shortness of breath
Continue dialysis as per nephrology
Continue midodrine before dialysis
Continue Sevelamer
#Adjustment disorder with depressed mood
Appreciate psychiatry input, who states patient is not suicidal.
No need for one-to-one
Patient declined increasing his Lexapro dose, continue current dose
#Severe b/l upper extremity edema
01/20/2024 left upper extremity Doppler negative for DVT
01/29/2024 right upper extremity Dopplers negative for DVT, +small chronic thrombus in the cephalic vein
#Benign essential hypertension
Continue amlodipine 10 mg daily
#Diabetes
Continue glargine 4 units at bedtime, diabetic diet, sliding scale insulin
#GERD
Continue PPI
#Anemia of chronic disease
Hemoglobin at baseline, continue iron supplements, trend
#History of stroke
Continue Plavix, statin
#Anxiety/depression
Continue SSRI
DVT prophylaxis�subcu heparin
Full code
Dispo - from [facility]
Total time spent to see the patient on the floor, examine the patient, review data and lab results, discuss treatment plan with patient, nursing staff around 40 minutes.
Physical Exam
General: No Apparent Distress
HEENT: NormoCephalic, Anicteric, Moist mucous membranes and Atraumatic
Respiratory: Clear
Cardiac: S1/S2 and Regular Rhythm
GI: Soft, Non Tender, Non Distended and Normal Bowel Sounds
Musculoskeletal: No Clubbing and Other (3+ severe edema of bilateral upper extremities, edema also noted in left lower extremity, right BKA noted)
Skin: Left foot plantar wound with 'midfoot tunneling wound deepest is about 4 cm tunneling laterally - no probe to bone, anaerobic type odor noted, purulent drainage from the wound and also some new purulent drainage from under the more distal
eschar' per ID
Psych: Calm
Anticipated Discharge: > 48 hours
Subjective/Interval History
-
Date of Service: February 01, 2024
Patient less depressed today. Denies chest pain, shortness of breath. No fever, no vomiting.
Objective Data
-
Labs:
Laboratory Results
02/01/24
05:43
WBC 6.3
Hgb 10.3 L
Hct 31.9 L
Plt Count 290
Sodium 136
Potassium 4.9
Chloride 98
Carbon Dioxide 25
BUN 42 H
Creatinine 3.5 H
Glucose 101 H
Calcium 7.7 L
Vital Signs:
Vital Signs
Temp Pulse Resp BP Pulse Ox
98.5 F 51 14 134/55 97
02/01/24 07:00 02/01/24 07:00 02/01/24 07:00 02/01/24 07:00 02/01/24 07:00
I&O
01/31/24 02/01/24 02/02/24
06:59 06:59 06:59
Intake Total 1320 / 1320 240 / 240
Balance 1320 / 1320 240 / 240
[2024-02-01] MEDS: PROTONIX 40 MG PO (08:25)
[2024-02-01] MEDS: HEPARIN 5000 UNITS SC ×2 (08:25→22:09)
[2024-02-01] MEDS: NORVASC 10 MG PO (08:25)
[2024-02-01] MEDS: JANUVIA 25 MG PO (08:25)
[2024-02-01] MEDS: RENVELA 800 MG PO ×3 (08:25→16:25)
[2024-02-01] MEDS: DESENEX/MITRAZOL/ZEASORB 1 APPLIC TOPICAL ×2 (08:26→22:06)
[2024-02-01] MEDS: BALMEX CREAM 1 APPLIC TOPICAL ×3 (08:26→22:07)
[2024-02-01] MEDS: DAKIN'S SOLUTION 0.125% 1/4 STRENGTH 1 ML TOPICAL (08:26)
[2024-02-01] MEDS: FEOSOL 325 MG PO (08:28)
[2024-02-01] MEDS: FIRVANQ 125 MG PO (08:29)
[2024-02-01] MEDS: LAC HYDRIN, AM LACTIN LOTION 1 APPLIC TOPICAL ×2 (08:29→22:07)
--- NOTE | 2024-02-01 09:25 | W.PN.NEPH.PH ---
Today's Communication / Plan
-
Dialysis tomorrow
Orders provided
Assessment/Plan
-
Assessment
ESRD
Hypertension
volume overload
AV fistula left upper arm
Left lower leg wound
Diabetes mellitus type 2
Rt AKA
Chest discomfort, normal troponin
Plan
Hemodialysis Friday, orders provided
For use dialysis catheter today plan for AV fistula use without coming dialysis sessions
no RUE DVT
MRI of foot to be done evaluation for possible BKA in process by vascular surgeon
-
-
Date of Service: February 01, 2024
CC / HPI / ROS
-
Chief Complaint:
ESRD
History of Present Illness:
tolerated HD yesterday ESRD: MWF
BP stable
Remains on Zosyn for left foot infection
Review of Systems:
no CP/SOB
weights down
Labs
-
Labs:
WBC 6.3 10^3/uL (4.8-10.8) 02/01/24 05:43
RBC 3.56 10^6/uL (4.70-6.10) L 02/01/24 05:43
Hgb 10.3 g/dL (13.0-18.0) L 02/01/24 05:43
Hct 31.9 % (39.0-52.0) L 02/01/24 05:43
Plt Count 290 10^3/uL (130-400) 02/01/24 05:43
Sodium 136 mmol/L (135-145) 02/01/24 05:43
Potassium 4.9 mmol/L (3.5-5.1) 02/01/24 05:43
Chloride 98 mmol/L (98-107) 02/01/24 05:43
Carbon Dioxide 25 mmol/L (22-30) 02/01/24 05:43
BUN 42 mg/dl (9-20) H 02/01/24 05:43
Creatinine 3.5 mg/dL (0.7-1.3) H 02/01/24 05:43
eGFR 19.52 02/01/24 05:43
Glucose 101 mg/dl (70-99) H 02/01/24 05:43
Calcium 7.7 mg/dl (8.4-10.2) L 02/01/24 05:43
Phosphorus 3.2 mg/dl (2.5-4.5) 01/31/24 08:42
Ejo-C-Fpjzwlsskkl Pept 93984 pg/ml 01/28/24 04:25
Albumin 2.7 g/dl (3.5-5.0) L 01/28/24 04:25
Physical Exam
-
Vital Signs:
Vital Signs
Temp Pulse Resp BP Pulse Ox
98.5 F 51 14 134/55 97
02/01/24 07:00 02/01/24 07:00 02/01/24 07:00 02/01/24 07:00 02/01/24 07:00
Cardiovascular:: Regular rate and rhythm
Respiratory:: Bilateral: Coarse
Lung Excursion:: Normal
Abdomen:: Nontender and Soft
Bowel Sounds:: Normal
Extremity Edema:: None: Bilateral:
[2024-02-01] MEDS: LEXAPRO 15 MG PO (09:54)
[2024-02-01 11:00] VITALS: BP 142/61
[2024-02-01 11:07] LABS: Glucose - Point of Care 106 mg/dl (70-99)
--- NOTE | 2024-02-01 12:57 | W.PN.UPDATE ---
Update Note
Progress Note Update
58 y/o snf resident on hemodialysis with infected foot and awaiting MRI to see if it can be salvaged seen for follow-up due to statement yesterday suggesting a desire to . Reviewed chart and spoke to nurse. He has been less sad and
more irriitable today with staff. He is alert and oriented, watching television. Hard of hearing. Remembered out conversation. He is still hopeful of getting an apartment in the near future with the assistance of a aids social worker from the [facility]
whom he will email for an update. He will need home health aides as well. Has a supportive friend, Terry. Discussed his issues with his sister who herself is in a snf now; the other sister who lives in the [facility] has an older
with dementia.
I suggested pt. look into volunteer activities he may be able to do to fill his time and do something productive, such as with a diabetes organization. He seemed receptive.
I again asked if he would consider raising Lexapro from 15 mg. to 20 mg, but he said it is not necessary.
Psychiatry will stay involved.
[2024-02-01] MEDS: NOVOLOG FLEXPEN-MODERATE RESISTANCE SC ×2 (13:17→16:42)
[2024-02-01 14:52] VITALS: BP 145/67
[2024-02-01 16:34] LABS: Glucose - Point of Care 123 mg/dl (70-99)
[2024-02-01 19:00] VITALS: BP 137/61
[2024-02-01 21:53] LABS: Glucose - Point of Care 120 mg/dl (70-99)
[2024-02-01] MEDS: DAKIN'S SOLUTION 0.125% 1/4 STRENGTH 473 ML TOPICAL (22:06)
[2024-02-01] MEDS: DESYREL 100 MG PO (22:08)
[2024-02-01] MEDS: LANTUS 0.04 UNITS SC (22:08)
[2024-02-01] MEDS: LIPITOR 20 MG PO (22:08)
[2024-02-01 23:00] VITALS: BP 129/62
[2024-02-02] MEDS: ROXICODONE 5 MG PO ×3 (01:54→15:12)
[2024-02-02 03:00] VITALS: BP 142/63
[2024-02-02] MEDS: ZOSYN 50 IV ×3 (05:04→22:03)
[2024-02-02 06:00] VITALS: BMI 29.2
[2024-02-02 07:30] VITALS: BP 156/68
[2024-02-02 07:39] LABS: Glucose - Point of Care 91 mg/dl (70-99)
[2024-02-02] MEDS: PROTONIX 40 MG PO (08:47)
[2024-02-02] MEDS: NOVOLOG FLEXPEN-MODERATE RESISTANCE SC ×3 (08:47→16:33)
[2024-02-02] MEDS: BALMEX CREAM 1 APPLIC TOPICAL ×3 (08:48→22:04)
[2024-02-02] MEDS: NEPHROCAP 1 CAPSULE PO (08:48)
[2024-02-02] MEDS: LEXAPRO 15 MG PO (08:48)
[2024-02-02] MEDS: DEMADEX 120 MG PO (08:49)
[2024-02-02] MEDS: PLAVIX 75 MG PO (08:49)
[2024-02-02] MEDS: JANUVIA 25 MG PO (08:49)
[2024-02-02] MEDS: FEOSOL 325 MG PO (08:50)
[2024-02-02] MEDS: RENVELA 800 MG PO ×3 (08:50→17:10)
[2024-02-02] MEDS: DESENEX/MITRAZOL/ZEASORB 1 APPLIC TOPICAL ×2 (08:51→20:49)
[2024-02-02] MEDS: NORVASC 10 MG PO (08:51)
[2024-02-02] MEDS: HEPARIN 5000 UNITS SC ×2 (08:52→20:50)
[2024-02-02] MEDS: FIRVANQ 125 MG PO (09:02)
--- NOTE | 2024-02-02 10:03 | W.PN.HOSP.TC ---
Today's Communication/Plan
-
follow with vascular recommendations/ MRI today
ok for diet for now
Receiving HD today
Assessment / Plan
Assessment / Plan
HPI: 58-year-old male with a past medical history of end-stage renal failure on dialysis Friday/Friday/Friday, diabetes, anemia, diabetic neuropathy, osteomyelitis status post right BKA, hypertension, hyperlipidemia, and stroke who presents with
chest pain and shortness of breath. Patient states that he woke up at 1 AM, and felt chest tightness and shortness of breath. He reports it 6 out of 10 in intensity, no aggravating or relieving factors identified. Denies nausea, vomiting. No
abdominal pain. He has chronic diarrhea. Patient was recently discharged from [facility] 4 days ago on 01/24/2024 after treatment of left lower extremity leg wound with surrounding cellulitis. He is on cefuroxime 500 mg daily through
01/29/2024, and oral vancomycin for C. difficile prophylaxis.
#Left plantar wound with surrounding cellulitis and possible abscess
Was on cefuroxime 500 mg daily through 01/29/2024, and oral vancomycin for C. difficile prophylaxis
Appreciate ID input, IV Ancef changed to IV Zosyn renally dosed, will need cultures from the OR
Appreciate podiatry input, who feels his foot is not salvageable
Appreciate vascular surgery input: Decision regarding limb salvage vs BKA to be made pending results of MRI
#Atypical chest pain
S/p aspirin 324 mg, Nitrostat sublingual as needed
Troponins negative, chest tightness resolved, not consistent with ACS
Echo with normal biventricular size and systolic function without regional wall motion abnormalities, mild < EF 60-65%
#End-stage renal failure on dialysis Friday/Friday/Friday
#Shortness of breath
Continue dialysis as per nephrology
Continue midodrine before dialysis
Continue Sevelamer
#Adjustment disorder with depressed mood
Appreciate psychiatry input, who states patient is not suicidal.
No need for one-to-one
Patient declined increasing his Lexapro dose, continue current dose
#Severe b/l upper extremity edema
01/20/2024 left upper extremity Doppler negative for DVT
01/29/2024 right upper extremity Dopplers negative for DVT, +small chronic thrombus in the cephalic vein
#Benign essential hypertension
Continue amlodipine 10 mg daily
# Hyponatremia
Mild
#Diabetes
Continue glargine 4 units at bedtime, diabetic diet, sliding scale insulin
#GERD
Continue PPI
#Anemia of chronic disease
Hemoglobin at baseline, continue iron supplements, trend
#History of stroke
Continue Plavix, statin
#Anxiety/depression
Continue SSRI
DVT prophylaxis�subcu heparin
Full code
Dispo - from [facility]
Total time spent to see the patient on the floor, examine the patient, review data and lab results, discuss treatment plan with patient, nursing staff around 40 minutes.
Physical Exam
General: No Apparent Distress
HEENT: NormoCephalic, Anicteric, Moist mucous membranes and Atraumatic
Respiratory: Clear
Cardiac: S1/S2 and Regular Rhythm
GI: Soft, Non Tender, Non Distended and Normal Bowel Sounds
Musculoskeletal: No Clubbing and Other (3+ severe edema of bilateral upper extremities, edema also noted in left lower extremity, right BKA noted)
Skin: Left foot plantar wound with 'midfoot tunneling wound deepest is about 4 cm tunneling laterally - no probe to bone, anaerobic type odor noted, purulent drainage from the wound and also some new purulent drainage from under the more distal
eschar' per ID
Psych: Calm
Total time spent to see the patient on the floor, examine the patient, review data and lab results, discuss treatment plan with patient, nursing staff around 55 minutes
Anticipated Discharge: > 48 hours
Subjective/Interval History
-
Date of Service: February 02, 2024
No sob
No chest pain
No fevers
Objective Data
-
Labs:
Laboratory Results
02/02/24
06:00
WBC Pending
Hgb Pending
Hct Pending
Plt Count Pending
Sodium Pending
Potassium Pending
Chloride Pending
Carbon Dioxide Pending
BUN Pending
Creatinine Pending
Glucose Pending
Calcium Pending
Vital Signs:
Vital Signs
Temp Pulse Resp BP Pulse Ox
97.7 F 58 17 156/68 98
02/02/24 07:30 02/02/24 07:30 02/02/24 07:30 02/02/24 07:30 02/02/24 07:30
I&O
02/01/24 02/02/24 02/03/24
06:59 06:59 06:59
Intake Total 240 / 240 340 / 340
Balance 240 / 240 340 / 340
[2024-02-02] MEDS: LAC HYDRIN, AM LACTIN LOTION 1 APPLIC TOPICAL ×2 (10:40→20:50)
[2024-02-02] MEDS: DAKIN'S SOLUTION 0.125% 1/4 STRENGTH 473 ML TOPICAL ×2 (10:41→20:49)
[2024-02-02 11:03] VITALS: BP 140/59
[2024-02-02 11:53] LABS: Glucose - Point of Care 114 mg/dl (70-99)
[2024-02-02] MEDS: ProAmatine 10 MG PO (12:05)
--- NOTE | 2024-02-02 12:07 | CM ---
Chart reviewed
For MRI today
HD today
Psych following
From [facility] - updates sent in [facility]
Plan - anticipate return to [facility] when medically stable
[2024-02-02 12:40] LABS: Hematocrit 31.3 % (39.0-52.0); Hemoglobin 10.3 g/dL (13.0-18.0); Mean Corp Hgb Conc. 32.9 g/dL (33.0-37.0); Mean Corpuscular Hgb 29.1 pg (27.0-31.0); Mean Corpuscular Volume 88.4 fL (80.0-94.0); Mean Platelet Volume 9.7 fL (7.4-10.4); Platelet Count 296 10^3/uL (130-400); Red Blood Cell Count 3.54 10^6/uL (4.70-6.10); Red Cell Dist. Width 16.8 % (11.5-14.5)
[2024-02-02 13:04] LABS: Blood Urea Nitrogen 60 mg/dl (9-20); Calcium 7.6 mg/dl (8.4-10.2); Carbon Dioxide 23 mmol/L (22-30); Chloride 97 mmol/L (98-107); Estimated Creatinine Clearance 16 ml/min; Glucose 133 mg/dl (70-99); Potassium 4.9 mmol/L (3.5-5.1); Sodium 133 mmol/L (135-145); eGFR 14.06
--- NOTE | 2024-02-02 13:13 | PTCARENOTE ---
patient with Creatinine level 5.6. Hemodialysis nurse Ana made aware as patient is receiving dialysis and Dr. Justina whelan texted, will continue to monitor.
[2024-02-02] MEDS: HEPARIN 500 UNITS IV ×2 (13:25→14:25)
--- NOTE | 2024-02-02 14:00 | PTCARENOTE ---
patient tolerated hemodialysis today. tolerating lunch, no s/s of seizure activity turns with assist x2, vss, for discharge to [facility] today.
--- NOTE | 2024-02-02 14:02 | W.PN.NEPH.HD ---
Assessment
-
Seen on HD. awaiting vascular decision after MRI, VSS< access ok
Progress Note - Hemodialysis
-
Date of Service: February 02, 2024
Duration: 30 minutes and 3 hours
Potassium Bath: 2
Calcium Bath: 2.5
Opti-Dialyzer: 160
Ultrafiltration: Other (4kg)
Blood Flow: 400
Dialysate Flow: 600
Heparin: 500x2
EPO: 4000 units
[2024-02-02] MEDS: RETACRIT 4000 UNITS IV (14:38)
--- NOTE | 2024-02-02 14:39 | PTCARENOTE ---
patient cooperative, tolerating diet, receiving hemodialysis at present, turns with assist x2, vss, will continue to monitor.
--- NOTE | 2024-02-02 14:53 | PTCARENOTE ---
student nurse and instructor Ramakrishna performed wound care on patient this am
[2024-02-02 15:20] VITALS: BP 177/66
--- NOTE | 2024-02-02 15:28 | W.PN.UPDATE ---
Update Note
Progress Note Update
Seen and evaluated. I reviewed MRI report. I reviewed his arterial noninvasive studies. Arterial noninvasive studies suggest adequate toe pressure for wound healing. His MRI demonstrates extensive necrotic tissue in the subcutaneous/deeper
tissues of the foot. He has got osteomyelitis of the fourth metatarsal shaft. And he has calcaneal fractures. I do not think his foot is salvageable based on all this. I agree with podiatry findings and recommendations. I discussed this with
the patient. He is in agreement with proceeding with BKA. I discussed procedure. Discussed risks including but not limited to bleeding, infection, nonhealing, eventual need for AKA. He understands all but wishes to trial BKA. Likely plan in OR
on Friday (2 days from now). Please optimize from a renal perspective. It would be ideal if he is not dialyzed the same day of surgery.
[2024-02-02] MEDS: HEPARIN 3600 UNITS INTRACATH (15:57)
[2024-02-02 16:32] LABS: Glucose - Point of Care 110 mg/dl (70-99)
--- NOTE | 2024-02-02 17:28 | W.PN.ID1 ---
Date of Service
Date of Service: February 02, 2024
Today's Communication
- I doubt medical therapy will be effective, I have recommended BKA
- c/w zosyn
Assessment / Plan
L Diabetic Foot Infection
- tunneling wound/abscess midfoot and forefoot
- eschar over the heel firm, no drainage
Neuropathy
PAD
ESRD on HD via tunneled line
C difficile colonization
H/o RLE amputation
- MRI with calcaneal fracture and 4th metatarsal shaft osteomyelitis
- I doubt medical therapy will be effective, I have recommended BKA
- c/w zosyn
Chief Complaint
-: Other (diabetic foot infection, osteomyelitis)
Subjective / Review of Systems
afebrile
bp stable
MRI report back
on HD
Vital Signs / Physical Exam
Vital Signs
Vital Signs
Temp Pulse Resp BP Pulse Ox
98.6 F 54 17 177/66 97
02/02/24 15:20 02/02/24 15:20 02/02/24 15:20 02/02/24 15:20 02/02/24 15:20
Physical Exam
Constitutional: No Acute Distress
Cardiovascular: Regular Rate and S1/S2; Negative Murmur or Rub
Pulmonary: Clear and Symmetric; Negative Wheezes or Rales
Gastrointestinal: Soft, Non Tender, Non Distended and Normal Bowel Sounds
Skin: Warm and Dry; Negative Rash or Jaundice
Wound: Other (dressing clean, dry, intact)
Lines: HD Cath (no erythema, tenderness or drainage)
Objective Data
Lab Data
Lab Results
02/02/24 12:29
02/02/24 12:29
Estimated Creat Clear 16 ml/min 02/02/24 12:29
Total Bilirubin 0.5 mg/dl (0.2-1.3) 01/28/24 04:25
AST 25 U/L (17-59) 01/28/24 04:25
ALT 20 U/L (0-50) 01/28/24 04:25
Alkaline Phosphatase 177 U/L (38-126) H 01/28/24 04:25
Most recent labs reviewed.
Micro Results:
01/31/24 14:07 Wound Culture - Preliminary
Abscess Escherichia coli
Gram Stain - Preliminary
01/31/24 14:07 Anaerobic Culture - Preliminary
Abscess Culture pending. Anaerobic cultures are examined after 3
days incubation. Additional information to follow.
01/28/24 16:03 MRSA Screen - Final
Nose No Methicillin Resistant Staphylococcus aureus isolated.
Care Review
Plan reviewed with: Physician (Dr Mae - recommended BKA)
[2024-02-02 19:00] VITALS: BP 156/60
[2024-02-02 21:30] LABS: Glucose - Point of Care 149 mg/dl (70-99)
[2024-02-02] MEDS: DESYREL 100 MG PO (22:03)
[2024-02-02] MEDS: LIPITOR 20 MG PO (22:03)
[2024-02-02] MEDS: LANTUS 0.04 UNITS SC (22:03)
[2024-02-02 23:00] VITALS: BP 155/61
[2024-02-03 03:00] VITALS: BP 144/65
[2024-02-03] MEDS: ZOSYN 50 IV ×3 (05:23→21:13)
[2024-02-03 06:00] VITALS: BMI 28.2
[2024-02-03 07:40] VITALS: BP 156/71
[2024-02-03 08:00] VITALS: BMI 28.2
[2024-02-03] MEDS: HEPARIN 500 UNITS IV ×2 (08:15→09:15)
[2024-02-03 08:17] LABS: Glucose - Point of Care 103 mg/dl (70-99)
[2024-02-03 08:39] LABS: Hematocrit 31.1 % (39.0-52.0); Hemoglobin 10.4 g/dL (13.0-18.0)
[2024-02-03 08:47] LABS: Carbon Dioxide 27 mmol/L (22-30); Chloride 99 mmol/L (98-107); Sodium 136 mmol/L (135-145)
--- NOTE | 2024-02-03 08:53 | W.PN.HOSP.TC ---
Today's Communication/Plan
-
An additional HD dialysis, Pre HD midodrine
Assessment / Plan
Assessment / Plan
HPI: 58-year-old male with a past medical history of end-stage renal failure on dialysis Friday/Friday/Friday, diabetes, anemia, diabetic neuropathy, osteomyelitis status post right BKA, hypertension, hyperlipidemia, and stroke who presents with
chest pain and shortness of breath. Patient states that he woke up at 1 AM, and felt chest tightness and shortness of breath. He reports it 6 out of 10 in intensity, no aggravating or relieving factors identified. Denies nausea, vomiting. No
abdominal pain. He has chronic diarrhea. Patient was recently discharged from [facility] 4 days ago on 01/24/2024 after treatment of left lower extremity leg wound with surrounding cellulitis. He is on cefuroxime 500 mg daily through
01/29/2024, and oral vancomycin for C. difficile prophylaxis.
#Left plantar wound with surrounding cellulitis and possible abscess
Was on cefuroxime 500 mg daily through 01/29/2024, and oral vancomycin for C. difficile prophylaxis
Appreciate ID input, IV Ancef changed to IV Zosyn renally dosed, will need cultures from the OR
Appreciate podiatry input, who feels his foot is not salvageable
Appreciate vascular surgery input: with severe PAD, plan for BKA
Patient was seen and examined. No complaint
#Atypical chest pain
S/p aspirin 324 mg, Nitrostat sublingual as needed
Troponin was negative, chest tightness resolved, not consistent with ACS
Echo with normal biventricular size and systolic function without regional wall motion abnormalities, mild < EF 60-65%
#End-stage renal failure on dialysis Friday/Friday/Friday
#Shortness of breath
Continue dialysis as per nephrology
Continue midodrine before dialysis
Continue Sevelamer
#Adjustment disorder with depressed mood
Appreciate psychiatry input, who states patient is not suicidal.
No need for one-to-one
Patient declined increasing his Lexapro dose, continue current dose
#Severe b/l upper extremity edema
01/20/2024 left upper extremity Doppler negative for DVT
01/29/2024 right upper extremity Dopplers negative for DVT, +small chronic thrombus in the cephalic vein
#Benign essential hypertension
Continue amlodipine 10 mg daily
# Hyponatremia
Mild
#Diabetes
Continue glargine 4 units at bedtime, diabetic diet, sliding scale insulin
#GERD
Continue PPI
#Anemia of chronic disease
Hemoglobin at baseline, continue iron supplements, trend
#History of stroke
Continue Plavix, statin
#Anxiety/depression
Continue SSRI
DVT prophylaxis�subcu heparin
Full code
Dispo - from [facility]
Total time spent to see the patient on the floor, examine the patient, review data and lab results, discuss treatment plan with patient, nursing staff around 40 minutes.
Physical Exam
General: No Apparent Distress
HEENT: NormoCephalic, Anicteric, Moist mucous membranes and Atraumatic
Respiratory: Clear
Cardiac: S1/S2 and Regular Rhythm
GI: Soft, Non Tender, Non Distended and Normal Bowel Sounds
Musculoskeletal: No Clubbing and Other (3+ severe edema of bilateral upper extremities, edema also noted in left lower extremity, right BKA noted)
Skin: Left foot plantar wound with 'midfoot tunneling wound deepest is about 4 cm tunneling laterally - no probe to bone, anaerobic type odor noted, purulent drainage from the wound and also some new purulent drainage from under the more distal
eschar' per ID
Psych: Calm
Total time spent to see the patient on the floor, examine the patient, review data and lab results, discuss treatment plan with patient, nursing staff around 55 minutes
Anticipated Discharge: > 48 hours
Subjective/Interval History
-
Date of Service: February 03, 2024
No chest pain
No sob
Patient is feeling better
Objective Data
-
Labs:
Laboratory Results
02/03/24
08:29
Hgb 10.4 L
Hct 31.1 L
Sodium 136
Potassium 4.0
Chloride 99
Carbon Dioxide 27
Vital Signs:
Vital Signs
Temp Pulse Resp BP Pulse Ox
100.3 F 58 18 156/71 95
02/03/24 07:40 02/03/24 07:40 02/03/24 07:40 02/03/24 07:40 02/03/24 07:40
I&O
02/02/24 02/03/24 02/04/24
06:59 06:59 06:59
Intake Total 340 / 340 1110 / 1110
Balance 340 / 340 1110 / 1110
[2024-02-03] MEDS: NOVOLOG FLEXPEN-MODERATE RESISTANCE SC ×3 (08:54→16:50)
[2024-02-03] MEDS: RENVELA 800 MG PO ×3 (08:55→16:50)
[2024-02-03] MEDS: PROTONIX 40 MG PO (08:55)
[2024-02-03] MEDS: LEXAPRO 15 MG PO (08:55)
[2024-02-03] MEDS: FEOSOL 325 MG PO (08:55)
[2024-02-03] MEDS: PLAVIX 75 MG PO (08:55)
[2024-02-03] MEDS: HEPARIN 5000 UNITS SC ×2 (08:58→21:07)
[2024-02-03] MEDS: JANUVIA 25 MG PO (08:59)
--- NOTE | 2024-02-03 09:52 | W.PN.NEPH.HD ---
Assessment
-
Seen on HD. short treatment for schedule shift for AMP OR tomorrow
VSS, access ok
plan HD MTTS this week
Progress Note - Hemodialysis
-
Date of Service: February 03, 2024
Duration: 45 minutes and 2 hours
Potassium Bath: 2
Calcium Bath: 2.5
Opti-Dialyzer: 160
Ultrafiltration: Other (3kg)
Blood Flow: 400
Dialysate Flow: 600
Heparin: 500x2
EPO: 4000 units
[2024-02-03] MEDS: LAC HYDRIN, AM LACTIN LOTION 1 APPLIC TOPICAL ×2 (09:56→21:08)
[2024-02-03] MEDS: DAKIN'S SOLUTION 0.125% 1/4 STRENGTH 473 ML TOPICAL ×2 (09:56→21:06)
[2024-02-03] MEDS: BALMEX CREAM 1 APPLIC TOPICAL ×3 (10:07→21:08)
[2024-02-03] MEDS: DESENEX/MITRAZOL/ZEASORB 1 APPLIC TOPICAL ×2 (10:09→21:06)
[2024-02-03] MEDS: FIRVANQ 125 MG PO (10:09)
[2024-02-03] MEDS: HEPARIN 3200 UNITS INTRACATH (10:51)
[2024-02-03 11:03] VITALS: BP 167/68
--- NOTE | 2024-02-03 11:13 | W.PN.ID1 ---
Date of Service
Date of Service: February 03, 2024
Today's Communication
- I doubt medical therapy will be effective, I have recommended BKA - planned for Friday
- c/w zosyn through surgery, no objection to addition of cefazolin perioperatively
Assessment / Plan
L Diabetic Foot Infection
- tunneling wound/abscess midfoot and forefoot
- eschar over the heel firm, no drainage
Neuropathy
PAD
ESRD on HD via tunneled line
C difficile colonization
H/o RLE amputation
- MRI with calcaneal fracture and 4th metatarsal shaft osteomyelitis
- I doubt medical therapy will be effective, I have recommended BKA - planned for Friday
- c/w zosyn through surgery, no objection to addition of cefazolin perioperatively
Chief Complaint
-: Other (diabetic foot infection, osteomyelitis)
Subjective / Review of Systems
afebrile
bp stable
tolerating current therapies
no new complaints
Vital Signs / Physical Exam
Vital Signs
Vital Signs
Temp Pulse Resp BP Pulse Ox
98.6 F 54 18 167/68 96
02/03/24 11:03 02/03/24 11:03 02/03/24 11:03 02/03/24 11:03 02/03/24 11:03
Physical Exam
Constitutional: No Acute Distress
Cardiovascular: Regular Rate and S1/S2; Negative Murmur or Rub
Pulmonary: Clear and Symmetric; Negative Wheezes or Rales
Gastrointestinal: Soft, Non Tender, Non Distended and Normal Bowel Sounds
Skin: Warm and Dry; Negative Rash or Jaundice
Wound: Other (deferred dressing take down today)
Objective Data
Lab Data
Lab Results
02/03/24 08:29
02/03/24 08:29
Estimated Creat Clear 16 ml/min 02/02/24 12:29
Total Bilirubin 0.5 mg/dl (0.2-1.3) 01/28/24 04:25
AST 25 U/L (17-59) 01/28/24 04:25
ALT 20 U/L (0-50) 01/28/24 04:25
Alkaline Phosphatase 177 U/L (38-126) H 01/28/24 04:25
Most recent labs reviewed.
Micro Results:
01/31/24 14:07 Wound Culture - Preliminary
Abscess Escherichia coli
Gram Stain - Preliminary
01/31/24 14:07 Anaerobic Culture - Preliminary
Abscess Culture pending. Anaerobic cultures are examined after 3
days incubation. Additional information to follow.
01/28/24 16:03 MRSA Screen - Final
Nose No Methicillin Resistant Staphylococcus aureus isolated.
[2024-02-03] MEDS: DEMADEX 120 MG PO (11:36)
[2024-02-03] MEDS: NEPHROCAP 1 CAPSULE PO (11:38)
[2024-02-03] MEDS: NORVASC 10 MG PO (11:38)
[2024-02-03] MEDS: ProAmatine 5 MG PO (11:39)
[2024-02-03 11:43] LABS: Glucose - Point of Care 96 mg/dl (70-99)
[2024-02-03] MEDS: ROXICODONE 5 MG PO ×2 (11:44→21:36)
--- NOTE | 2024-02-03 12:14 | W.PN.UPDATE ---
Update Note
Progress Note Update
Approached pt for psychiatric follow-up. Pt receiving hemodialysis, resting in no distress. Pt states he is doing okay, does not feel the need for Psychiatry. Pt hopeful about his surgery tomorrow- left BKA.
Imp/Rec: Adjustment disorder, with depression- stable. Pt denies need for further psychiatric f/u
Psychiatry will sign off. Please re-consult for any new concerns
--- NOTE | 2024-02-03 15:10 | CM ---
CM reviewed chart
Plan for OR tomorrow 02/03 for L BKA vs AKA
Updated clinicals sent to the SNF via [facility]
CM will continue to follow for dc planning
Discharge Disposition- return to [facility] for LTC for continued
[2024-02-03 15:30] VITALS: BP 186/76
[2024-02-03 16:49] LABS: Glucose - Point of Care 115 mg/dl (70-99)
[2024-02-03] MEDS: TYLENOL 650 MG PO (16:55)
[2024-02-03 19:18] VITALS: BP 153/64
[2024-02-03] MEDS: DESYREL 100 MG PO (21:14)
[2024-02-03] MEDS: LIPITOR 20 MG PO (21:14)
[2024-02-03] MEDS: LANTUS 0.04 UNITS SC (21:36)
[2024-02-03 21:37] LABS: Glucose - Point of Care 126 mg/dl (70-99)
[2024-02-03 23:42] VITALS: BP 131/58
[2024-02-04] VITALS (15 sets, daily range): BP systolic 118–166; BP diastolic 56–72; BMI 27.6
[2024-02-04] MEDS: ZOSYN 50 IV ×3 (05:45→21:33)
[2024-02-04] MEDS: ROXICODONE 5 MG PO (05:45)
[2024-02-04 06:21] LABS: Glucose - Point of Care 77 mg/dl (70-99)
[2024-02-04] MEDS: PROTONIX 40 MG PO (08:02)
[2024-02-04] MEDS: NEPHROCAP 1 CAPSULE PO (08:02)
[2024-02-04] MEDS: PLAVIX 75 MG PO (08:02)
[2024-02-04] MEDS: LEXAPRO 15 MG PO (08:02)
[2024-02-04] MEDS: DEMADEX 120 MG PO (08:03)
[2024-02-04] MEDS: FEOSOL 325 MG PO (08:03)
[2024-02-04] MEDS: NORVASC 10 MG PO (08:03)
[2024-02-04] MEDS: HEPARIN 5000 UNITS SC ×2 (08:03→21:27)
[2024-02-04] MEDS: BALMEX CREAM 1 APPLIC TOPICAL ×2 (08:04→21:30)
[2024-02-04 08:08] LABS: Glucose - Point of Care 82 mg/dl (70-99)
[2024-02-04] MEDS: DESENEX/MITRAZOL/ZEASORB 1 APPLIC TOPICAL ×2 (08:24→21:28)
[2024-02-04] MEDS: FIRVANQ 125 MG PO (08:25)
[2024-02-04] MEDS: ProAmatine PO (08:28)
[2024-02-04] MEDS: LAC HYDRIN, AM LACTIN LOTION TOPICAL ×2 (08:28→20:45)
[2024-02-04] MEDS: DAKIN'S SOLUTION 0.125% 1/4 STRENGTH TOPICAL ×2 (08:28→20:45)
[2024-02-04] MEDS: RENVELA PO ×3 (08:28→17:23)
[2024-02-04] MEDS: JANUVIA PO (08:28)
--- NOTE | 2024-02-04 09:58 | W.PN.HOSP.TC ---
Today's Communication/Plan
-
Surgery today, NPO
Assessment / Plan
Assessment / Plan
HPI: 58-year-old male with a past medical history of end-stage renal failure on dialysis Friday/Friday/Friday, diabetes, anemia, diabetic neuropathy, osteomyelitis status post right BKA, hypertension, hyperlipidemia, and stroke who presents with
chest pain and shortness of breath. Patient states that he woke up at 1 AM, and felt chest tightness and shortness of breath. He reports it 6 out of 10 in intensity, no aggravating or relieving factors identified. Denies nausea, vomiting. No
abdominal pain. He has chronic diarrhea. Patient was recently discharged from [facility] 4 days ago on 01/24/2024 after treatment of left lower extremity leg wound with surrounding cellulitis. He is on cefuroxime 500 mg daily through
01/29/2024, and oral vancomycin for C. difficile prophylaxis.
#Left plantar wound with surrounding cellulitis and possible abscess
Was on cefuroxime 500 mg daily through 01/29/2024, and oral vancomycin for C. difficile prophylaxis
Appreciate ID input, IV Ancef changed to IV Zosyn renally dosed, will need cultures from the OR
Appreciate podiatry input, who feels his foot is not salvageable
Appreciate vascular surgery input: with severe PAD, plan for BKA , he is NPO
# Pre-op evaluation
Patient has underlying significant PAD/PVD, diabetes, no known heart failure. Last echo 01/28 showed normal LVEF 60-65% with normal wall motion, mild . negative troponin on admission. No hypoxia.
Patient denies angina symptoms. c/w his antiplatelet therapy. BKA is a life saving surgery to avoid further worsening / spreading of foot infection and gangrene. No prohibitory factors to this surgery.
#Atypical chest pain
S/p aspirin 324 mg, Nitrostat sublingual as needed
Troponin was negative, chest tightness resolved, not consistent with ACS
Echo with normal biventricular size and systolic function without regional wall motion abnormalities, mild < EF 60-65%
#End-stage renal failure on dialysis Friday/Friday/Friday
#Shortness of breath
Continue dialysis as per nephrology
Continue midodrine before dialysis
Continue Sevelamer
#Adjustment disorder with depressed mood
Appreciate psychiatry input, who states patient is not suicidal.
No need for one-to-one
Patient declined increasing his Lexapro dose, continue current dose
#Severe b/l upper extremity edema
01/20/2024 left upper extremity Doppler negative for DVT
01/29/2024 right upper extremity Dopplers negative for DVT, +small chronic thrombus in the cephalic vein
#Benign essential hypertension
Continue amlodipine 10 mg daily
# Hyponatremia
Mild
#Diabetes
Continue glargine 4 units at bedtime, diabetic diet, sliding scale insulin
#GERD
Continue PPI
#Anemia of chronic disease
Hemoglobin at baseline, continue iron supplements, trend
#History of stroke
Continue Plavix, statin
#Anxiety/depression
Continue SSRI
DVT prophylaxis�subcu heparin
Full code
Dispo - from [facility]
Total time spent to see the patient on the floor, examine the patient, review data and lab results, discuss treatment plan with patient, nursing staff around 40 minutes.
Physical Exam
General: No Apparent Distress
HEENT: NormoCephalic, Anicteric, Moist mucous membranes and Atraumatic
Respiratory: Clear
Cardiac: S1/S2 and Regular Rhythm
GI: Soft, Non Tender, Non Distended and Normal Bowel Sounds
Musculoskeletal: No Clubbing and Other ( edema of bilateral upper extremities ( chronic), edema also noted in left lower extremity, right BKA noted)
Skin: Left foot dressing
Psych: Calm
Total time spent to see the patient on the floor, examine the patient, review data and lab results, discuss treatment plan with patient, nursing staff around 57 minutes
Anticipated Discharge: > 48 hours
Subjective/Interval History
-
Date of Service: February 04, 2024
No chest pain
No sob
Objective Data
-
Vital Signs:
Vital Signs
Temp Pulse Resp BP Pulse Ox
98 F 50 18 144/68 96
02/04/24 07:55 02/04/24 07:55 02/04/24 07:55 02/04/24 07:55 02/04/24 07:55
I&O
02/03/24 02/04/24 02/05/24
06:59 06:59 06:59
Intake Total 1110 / 1110
Balance 1110 / 1110
--- NOTE | 2024-02-04 10:46 | W.PN.NEPH.PH ---
Today's Communication / Plan
-
BKA surgery today
Dialysis tomorrow
Assessment/Plan
-
Assessment
ESRD
Hypertension
volume overload
AV fistula left upper arm
Left lower leg wound
Diabetes mellitus type 2
Rt AKA
Chest discomfort, normal troponin
Plan
Hemodialysis tomorrow, orders provided, patient will be off schedule for BKA surgery today
For use dialysis catheter today plan for AV fistula use without coming dialysis sessions
no RUE DVT
-
-
Date of Service: February 04, 2024
CC / HPI / ROS
-
Chief Complaint:
ESRD
History of Present Illness:
tolerated HD yesterday ESRD: MWF
BP stable
Remains on Zosyn for left foot infection
Review of Systems:
no CP/SOB
weights down
Labs
-
Labs:
WBC 7.0 10^3/uL (4.8-10.8) 02/02/24 12:
RBC 3.54 10^6/uL (4.70-6.10) L 02/02/24 12:29
Hgb 10.4 g/dL (13.0-18.0) L 02/03/24 08:
Hct 31.1 % (39.0-52.0) L 02/03/24 08:29
Plt Count 296 10^3/uL (130-400) 02/02/24 12:29
Sodium 136 mmol/L (135-145) 02/03/24 08:29
Potassium 4.0 mmol/L (3.5-5.1) 02/03/24 08:29
Chloride 99 mmol/L (98-107) 02/03/24 08:29
Carbon Dioxide 27 mmol/L (22-30) 02/03/24 08:
BUN 60 mg/dl (9-20) H 02/02/24 12:29
Creatinine 4.6 mg/dL (0.7-1.3) H* 02/02/24 12:29
eGFR 14.06 02/02/24 12:29
Glucose 133 mg/dl (70-99) H 02/02/24 12:29
Calcium 7.6 mg/dl (8.4-10.2) L 02/02/24 12:29
Phosphorus 3.2 mg/dl (2.5-4.5) 01/31/24 08:42
Gnr-F-Snuzmjrzhie Pept 19371 pg/ml 01/28/24 04:25
Albumin 2.7 g/dl (3.5-5.0) L 01/28/24 04:25
Physical Exam
-
Vital Signs:
Vital Signs
Temp Pulse Resp BP Pulse Ox
98 F 50 18 144/68 96
02/04/24 07:55 02/04/24 07:55 02/04/24 07:55 02/04/24 07:55 02/04/24 07:55
Cardiovascular:: Regular rate and rhythm
Respiratory:: Bilateral: Coarse
Lung Excursion:: Normal
Abdomen:: Nontender and Soft
Bowel Sounds:: Normal
Extremity Edema:: None: Bilateral:
[2024-02-04] MEDS: PERIDEX 0.12% ORAL RINSE 15 ML PO (13:42)
[2024-02-04] MEDS: BACTROBAN 2% OINTMENT 1 APPLIC NASAL (13:42)
[2024-02-04 13:48] LABS: Glucose - Point of Care 78 mg/dl (70-99)
[2024-02-04] MEDS: BALMEX CREAM TOPICAL (17:23)
[2024-02-04 17:37] LABS: Glucose - Point of Care 68 mg/dl (70-99)
[2024-02-04 18:08] LABS: Glucose - Point of Care 108 mg/dl (70-99)
--- NOTE | 2024-02-04 18:41 | OR.RPT ---
Operative Report
Operative Report
PROCEDURE DATE: 02/04/2024
Preoperative diagnosis: Gangrene left foot
Postoperative diagnosis: Same
Procedure: Left below the knee amputation
Surgeon: Tu
Furnace Keeper: VENECIA Umanzor, required for all aspects of procedure including assistance with traction/countertraction, assistance with closure.
Complications: None
Anesthesia: General
Indications for procedure:
Left foot gangrene. [place] to be nonsalvageable. Extensive necrotic tissue on MRI. Risk/benefit/alternatives of left below the knee amputation all fully discussed. Patient understood all wish to proceed.
Description of procedure:
Patient was identified brought to the operating room placed on the table in supine position. After the adequate administration of anesthesia and perioperative antibiotics he was prepped and draped in the standard surgical fashion. A standard
preoperative timeout was undertaken and everybody was in agreement the plan. Standard posterior flap type incisions were made in the [] lower extremity with a transverse incision anteriorly at approximately 10 to 12 cm distal to the tibial
tuberosity (it was on the slightly higher side due to diseased skin tissue in the mid to the more distal calf, and in addition in order to align with the other side). Medial and lateral longitudinal incisions were carried down. And then posterior
transverse incision was then again carried down. The incisions were carried through the skin subcutaneous tissue with the electrocautery and then through the fascial layer. Hemostasis was achieved as we progressed. Next the muscles of the
anterior and lateral compartments of the calf were divided with electrocautery. There was moderate to diffuse oozing suggesting adequate perfusion to the tissues, but the muscles themselves were a bit pale and color. The anterior tibial artery and
then vein were ligated between silk ties and then divided. The muscles/attachments of the tibia medially were also divided with electrocautery. As such the tibia was then freed of all its attachments and a periosteal elevator was used to elevate
the periosteum circumferentially. The fibula was similarly freed of all its surrounding soft tissue and muscles. These were transected with electrocautery. The intermuscular septum was then divided with electrocautery. While I was able to clear
all these tissues, again with the color and consistency of the muscles, it was almost as if they were somewhat scarred and dissection was a little bit more challenging. Circumferential dissection of the fibula was undertaken carefully and a
periosteal elevator was used to elevate the periosteum circumferentially around the fibula as well. At this point the tibia and fibula were transected with an oscillating saw. The posterior tissues were then cut with a amputation knife and a
direction parallel to the access of the leg. This was then teed off in a perpendicular access at the distal posterior transverse skin incision site. The leg specimen was then removed. The peroneal and posterior tibial arteries were then
controlled with hemostats. They were bleeding briskly, but quickly controlled. These were then ligated. They were suture-ligated with silk suture.. Next I removed any redundant muscle with the electrocautery. Next hemostasis was achieved
throughout the muscle bed with [id number] 2-0 and 3-0 silk suture. Next the oscillating saw was used to transect both bones slightly more proximally, and the fibula about 1/2 cm more proximal to the tibia. Bone edges were noted to be smooth.
Next we irrigated copiously. Hemostasis was confirmed. I then closed in layers after trimming the skin flap of any redundant/dogear type projections. 0 Vicryl interrupted suture was used to reapproximate the fascial layer. Next running 3-0
Vicryl deep dermal suture layer was run. Finally skin clips were applied. Bulky dressings were applied. The patient tolerated procedure well.
[2024-02-04 19:07] LABS: Glucose - Point of Care 92 mg/dl (70-99)
[2024-02-04] MEDS: SUBLIMAZE 25 MCG IV (19:37)
[2024-02-04] MEDS: D5/0.45%NACL 1000 IV (19:43)
[2024-02-04] MEDS: DILAUDID PCA 30 IV (19:47)
[2024-02-04 20:36] LABS: Glucose - Point of Care 104 mg/dl (70-99)
[2024-02-04] MEDS: DESYREL 100 MG PO (21:33)
[2024-02-04] MEDS: LIPITOR 20 MG PO (21:33)
[2024-02-04 22:08] LABS: Glucose - Point of Care 97 mg/dl (70-99)
[2024-02-04] MEDS: LANTUS 0.04 UNITS SC (23:09)
[2024-02-05] VITALS (9 sets, daily range): BP systolic 124–157; BP diastolic 56–70; BMI 25.6
--- NOTE | 2024-02-05 05:05 | PTCARENOTE ---
Received pt from PACU at approx 2030 s/p L BKA. Pulled over into bed with assist x4. Trapeze bar placed on bed prior to arrival. Pt AAOx3, asking for dinner. Accucheck 104. Pt states that pain is specifically in the R edge of surgical site. Prabhu wrap
to L BKA site c/d/i, L femoral pulse palpable. Refer to worklist for site checks per orders, WNL throughout shift. Pt placed back on telemetry, Sinus [place] with prolonged QT. Continuous pulse ox SaO2 >95% throughout night on 2L nasal cannula. VSS
throughout night.
Pt arouses to verbal and tactile stimuli, appears comfortable with left undisturbed, respirations even and non-labored.
Received pt from PACU with Hydromorphone VENEER STAPLER pump infusing into R A/C INT, pt verbalizes understanding of usage.
VENEER STAPLER settings verified with second RN. Refer to worklist for further VENEER STAPLER documentation.
Call cabrera within reach. Monitoring continues.
[2024-02-05] MEDS: ZOSYN 50 IV (05:33)
[2024-02-05 07:22] LABS: Glucose - Point of Care 177 mg/dl (70-99)
[2024-02-05] MEDS: PLAVIX 75 MG PO (08:04)
[2024-02-05] MEDS: JANUVIA 25 MG PO (08:04)
[2024-02-05] MEDS: NEPHROCAP 1 CAPSULE PO (08:04)
[2024-02-05] MEDS: LEXAPRO 15 MG PO (08:04)
[2024-02-05] MEDS: FEOSOL 325 MG PO (08:04)
[2024-02-05] MEDS: PROTONIX 40 MG PO (08:04)
[2024-02-05] MEDS: NORVASC 10 MG PO (08:04)
[2024-02-05] MEDS: LAC HYDRIN, AM LACTIN LOTION TOPICAL ×2 (08:07→21:06)
[2024-02-05] MEDS: HEPARIN 5000 UNITS SC ×2 (08:08→21:07)
[2024-02-05] MEDS: NOVOLOG FLEXPEN-MODERATE RESISTANCE 1 UNITS SC ×2 (08:09→16:53)
[2024-02-05] MEDS: DAKIN'S SOLUTION 0.125% 1/4 STRENGTH TOPICAL ×2 (08:09→21:06)
[2024-02-05] MEDS: DESENEX/MITRAZOL/ZEASORB 1 APPLIC TOPICAL ×2 (08:09→21:07)
[2024-02-05] MEDS: RENVELA 800 MG PO ×3 (08:11→16:53)
--- NOTE | 2024-02-05 08:12 | W.PN.VS ---
Addendum entered and electronically signed by Shaheed Mae MD 02/06/24 08:08:
Seen and examined yesterday with PA - this is a late entry. Findings and plan were as discussed and noted below.
Original Note:
Today's Communication / Plan
-
Patient seen and examined at bedside with Dr. Shaheed Mae, below plan reviewed with attending.
Assessment/Plan
-
Assessment: 48-year-old male POD #1 left BKA
Plan:
Given patient's report of intermittent breakthrough pain, but feels pain is controlled, would continue CIT[employer]EN [employer] SPECIALIST today
PT
Vascular surgical team will change postoperative dressing tomorrow
Hemoglobin pending, blood transfusion as needed
Subjective Data
-
Date of Service: February 05, 2024
Patient seen and examined at bedside, denies nausea, vomiting, fever, and chills. Reports tolerating p.o. diet. Denies any evidence of bleeding or severe pain at recent left BKA site. However, does endorse intermittent breakthrough moderate to
significant pain that is currently being well-managed with his CIT[employer]EN PARTICIPATION SPECIALIST.
Objective Data
-
Vital Signs
Temp Pulse Resp BP Pulse Ox
98.2 F 68 14 157/70 98
02/05/24 03:15 02/05/24 03:15 02/05/24 05:15 02/05/24 03:15 02/05/24 05:15
Intake and Output
02/04/24 02/05/24 02/06/24
06:59 06:59 06:59
Intake Total 340 / 340 20 / 20
Balance 340 / 340 20 / 20
Intake:
Oral fluids 240 / 240
IV fluids (Total) 20 / 20
D51/2NS 20 / 20
IV piggybacks 100 / 100
Calcium Cancelled 02/05/24 00:30
Phosphorus 3.2 mg/dl (2.5-4.5) 01/31/24 08:42
Magnesium 2.0 mg/dl (1.6-2.3) 01/31/24 08:42
Total Bilirubin 0.5 mg/dl (0.2-1.3) 01/28/24 04:25
AST 25 U/L (17-59) 01/28/24 04:25
ALT 20 U/L (0-50) 01/28/24 04:25
Alkaline Phosphatase 177 U/L (38-126) H 01/28/24 04:25
Total Protein 5.7 g/dl (6.3-8.2) L 01/28/24 04:25
Albumin 2.7 g/dl (3.5-5.0) L 01/28/24 04:25
Physical Exam
-
No apparent distress, resting in bed comfortably eating breakfast
No tachycardia
No dyspnea on room air
Left BKA surgical dressing CDI, no evidence of bleeding, no edema
[2024-02-05] MEDS: FIRVANQ 125 MG PO (08:16)
[2024-02-05] MEDS: DEMADEX 120 MG PO (08:29)
[2024-02-05 11:19] LABS: Glucose - Point of Care 341 mg/dl (70-99)
--- NOTE | 2024-02-05 11:25 | W.PN.HOSP.TC ---
Today's Communication/Plan
-
.
Assessment / Plan
Assessment / Plan
HPI: 58-year-old male with a past medical history of end-stage renal failure on dialysis Friday/Friday/Friday, diabetes, anemia, diabetic neuropathy, osteomyelitis status post right BKA, hypertension, hyperlipidemia, and stroke who presents with
chest pain and shortness of breath. Patient states that he woke up at 1 AM, and felt chest tightness and shortness of breath. He reports it 6 out of 10 in intensity, no aggravating or relieving factors identified. Denies nausea, vomiting. No
abdominal pain. He has chronic diarrhea. Patient was recently discharged from [facility] 4 days ago on 01/24/2024 after treatment of left lower extremity leg wound with surrounding cellulitis. He is on cefuroxime 500 mg daily through
01/29/2024, and oral vancomycin for C. difficile prophylaxis.
#Left plantar wound with surrounding cellulitis and possible abscess
Was on cefuroxime 500 mg daily through 01/29/2024, and oral vancomycin for C. difficile prophylaxis
Appreciate ID input, stopped Abx post amputation
Appreciate podiatry help.
Appreciate vascular surgery input: with severe PAD, s/p BKA 02/03
On PCI for pain control
Atypical chest pain
S/p aspirin 324 mg, Nitrostat sublingual as needed
Troponin was negative, chest tightness resolved, not consistent with ACS
Echo with normal biventricular size and systolic function without regional wall motion abnormalities, mild < EF 60-65%
#End-stage renal failure on dialysis Friday/Friday/Friday
#Shortness of breath
Continue dialysis as per nephrology
Continue midodrine before dialysis
Continue Sevelamer
#Adjustment disorder with depressed mood
Appreciate psychiatry input, who states patient is not suicidal.
No need for one-to-one
Patient declined increasing his Lexapro dose, continue current dose
#Severe b/l upper extremity edema
01/20/2024 left upper extremity Doppler negative for DVT
01/29/2024 right upper extremity Dopplers negative for DVT, +small chronic thrombus in the cephalic vein
#Benign essential hypertension
Continue amlodipine 10 mg daily
# Hyponatremia
Mild
#Diabetes
Continue glargine 4 units at bedtime, diabetic diet, sliding scale insulin
#GERD
Continue PPI
#Anemia of chronic disease
Hemoglobin at baseline, continue iron supplements, trend
#History of stroke
Continue Plavix, statin
#Anxiety/depression
Continue SSRI
DVT prophylaxis�subcu heparin
Full code
Dispo - from [facility]
Total time spent to see the patient on the floor, examine the patient, review data and lab results, discuss treatment plan with patient, nursing staff around 55 minutes.
Physical Exam
General: No Apparent Distress
HEENT: NormoCephalic, Anicteric, Moist mucous membranes and Atraumatic
Respiratory: Clear
Cardiac: S1/S2 and Regular Rhythm
GI: Soft, Non Tender, Non Distended and Normal Bowel Sounds
Musculoskeletal: No Clubbing, BKA left with dressing. Right BKA noted)
Skin: Left foot dressing
Psych: Calm
Total time spent to see the patient on the floor, examine the patient, review data and lab results, discuss treatment plan with patient, nursing staff around 57 minutes
Anticipated Discharge: > 48 hours
Subjective/Interval History
-
Date of Service: February 05, 2024
Pain in left leg
Objective Data
-
Labs:
Laboratory Results
02/05/24 02/05/24 02/05/24
00:30 06:00 07:00
WBC Cancelled Pending Pending
Hgb Cancelled Pending Pending
Hct Cancelled Pending Pending
Plt Count Cancelled Pending Pending
Sodium Cancelled Pending
Potassium Cancelled Pending
Chloride Cancelled Pending
Carbon Dioxide Cancelled Pending
BUN Cancelled Pending
Creatinine Cancelled Pending
Glucose Cancelled Pending
Calcium Cancelled Pending
Vital Signs:
Vital Signs
Temp Pulse Resp BP Pulse Ox
98.8 F 53 16 157/63 92
02/05/24 07:50 02/05/24 07:50 02/05/24 08:00 02/05/24 08:29 02/05/24 08:00
I&O
02/04/24 02/05/24 02/06/24
06:59 06:59 06:59
Intake Total 340 / 340 20 / 20
Balance 340 / 340 20 / 20
[2024-02-05] MEDS: NOVOLOG FLEXPEN-MODERATE RESISTANCE 7 UNITS SC (11:51)
[2024-02-05] MEDS: HEPARIN 500 UNITS IV ×2 (12:35→13:55)
[2024-02-05] MEDS: BALMEX CREAM TOPICAL ×2 (13:10→21:07)
[2024-02-05 13:14] LABS: Hematocrit 26.4 % (39.0-52.0); Hemoglobin 8.5 g/dL (13.0-18.0); Mean Corp Hgb Conc. 32.2 g/dL (33.0-37.0); Mean Corpuscular Hgb 28.9 pg (27.0-31.0); Mean Corpuscular Volume 89.8 fL (80.0-94.0); Mean Platelet Volume 9.9 fL (7.4-10.4); Platelet Count 231 10^3/uL (130-400); Red Blood Cell Count 2.94 10^6/uL (4.70-6.10); Red Cell Dist. Width 17.1 % (11.5-14.5); White Blood Cell Count 5.6 10^3/uL (4.8-10.8)
--- NOTE | 2024-02-05 13:47 | W.PN.NEPH.HD ---
Assessment
-
Patient dialyzed today
Systolic blood pressure 144 current UF
Will perform dialysis again tomorrow as patient missed treatment on Friday for BKA surgery
Patient is normally Friday HD
Progress Note - Hemodialysis
-
Date of Service: February 05, 2024
Duration: 30 minutes and 3 hours
Potassium Bath: 2
Calcium Bath: 2.5
Opti-Dialyzer: 160
Ultrafiltration: Other (2 to 2.5 kg)
Blood Flow: 400
Dialysate Flow: 600
Heparin: None
EPO: 6000
[2024-02-05 13:58] LABS: Blood Urea Nitrogen 45 mg/dl (9-20); Calcium 7.1 mg/dl (8.4-10.2); Carbon Dioxide 22 mmol/L (22-30); Chloride 96 mmol/L (98-107); Estimated Creatinine Clearance 18 ml/min; Glucose 333 mg/dl (70-99); Potassium 4.1 mmol/L (3.5-5.1); Sodium 132 mmol/L (135-145); eGFR 16.63
[2024-02-05] MEDS: RETACRIT 6000 UNITS IV (14:00)
--- NOTE | 2024-02-05 14:22 | W.PN.ID1 ---
Date of Service
Date of Service: February 05, 2024
Today's Communication
- infected tissue has been amputated
- stopped zosyn and oral vancomycin
- follow up with vascular surgery
ID service will no longer actively follow this patient please recall for further questions
Assessment / Plan
L Diabetic Foot Infection - s/p BKA on 02/03
Neuropathy
PAD
ESRD on HD via tunneled line
C difficile colonization
H/o RLE amputation
- infected tissue has been amputated
- stopped zosyn and oral vancomycin
- follow up with vascular surgery
ID service will no longer actively follow this patient please recall for further questions
Chief Complaint
-: Other (diabetic foot infection, osteomyelitis)
Subjective / Review of Systems
afebrile
bp stable
s/p BKA yesterday
Vital Signs / Physical Exam
Vital Signs
Vital Signs
Temp Pulse Resp BP Pulse Ox
97.8 F 95 16 136/56 100
02/05/24 11:00 02/05/24 11:00 02/05/24 12:00 02/05/24 11:00 02/05/24 13:18
Physical Exam
Constitutional: No Acute Distress
Cardiovascular: Regular Rate and S1/S2; Negative Murmur or Rub
Pulmonary: Clear and Symmetric; Negative Wheezes or Rales
Gastrointestinal: Soft, Non Tender, Non Distended and Normal Bowel Sounds
Skin: Warm and Dry; Negative Rash or Jaundice
Wound: Other (dressing clean, dry, intact)
Objective Data
Lab Data
Lab Results
02/05/24 12:55
02/05/24 12:55
Estimated Creat Clear 18 ml/min 02/05/24 12:55
Total Bilirubin 0.5 mg/dl (0.2-1.3) 01/28/24 04:25
AST 25 U/L (17-59) 01/28/24 04:25
ALT 20 U/L (0-50) 01/28/24 04:25
Alkaline Phosphatase 177 U/L (38-126) H 01/28/24 04:25
Most recent labs reviewed.
Micro Results:
01/31/24 14:07 Wound Culture - Final
Abscess Escherichia coli
Gram Stain - Final
01/31/24 14:07 Anaerobic Culture - Final
Abscess NO ANAEROBES ISOLATED
01/28/24 16:03 MRSA Screen - Final
Nose No Methicillin Resistant Staphylococcus aureus isolated.
[2024-02-05 16:36] LABS: Glucose - Point of Care 159 mg/dl (70-99)
[2024-02-05] MEDS: HEPARIN 3200 UNITS INTRACATH (16:43)
[2024-02-05] MEDS: IMODIUM 2 MG PO (18:05)
[2024-02-05] MEDS: BALMEX CREAM 1 APPLIC TOPICAL (18:06)
[2024-02-05] MEDS: DESYREL 100 MG PO (21:07)
[2024-02-05] MEDS: LIPITOR 20 MG PO (21:07)
[2024-02-05 21:13] LABS: Glucose - Point of Care 197 mg/dl (70-99)
[2024-02-05] MEDS: LANTUS 0.04 UNITS SC (21:37)
[2024-02-06 03:56] VITALS: BP 162/76
[2024-02-06 03:57] VITALS: BMI 25.9
[2024-02-06 07:36] VITALS: BP 150/65
[2024-02-06 07:44] LABS: Glucose - Point of Care 194 mg/dl (70-99)
[2024-02-06] MEDS: ROXICODONE 5 MG PO ×2 (07:46→21:47)
[2024-02-06] MEDS: NOVOLOG FLEXPEN-MODERATE RESISTANCE 1 UNITS SC ×2 (09:23→12:42)
[2024-02-06] MEDS: DAKIN'S SOLUTION 0.125% 1/4 STRENGTH TOPICAL ×2 (09:24→21:41)
[2024-02-06] MEDS: DEMADEX 120 MG PO (09:24)
[2024-02-06] MEDS: RENVELA 800 MG PO ×3 (09:24→18:13)
[2024-02-06] MEDS: FEOSOL 325 MG PO (09:25)
[2024-02-06] MEDS: JANUVIA 25 MG PO (09:25)
[2024-02-06] MEDS: NORVASC 10 MG PO (09:25)
[2024-02-06] MEDS: PLAVIX 75 MG PO (09:25)
[2024-02-06] MEDS: LEXAPRO 15 MG PO (09:25)
[2024-02-06] MEDS: PROTONIX 40 MG PO (09:25)
[2024-02-06] MEDS: NEPHROCAP 1 CAPSULE PO (09:25)
[2024-02-06] MEDS: HEPARIN 5000 UNITS SC ×2 (09:26→21:31)
[2024-02-06] MEDS: LAC HYDRIN, AM LACTIN LOTION 1 APPLIC TOPICAL (09:27)
[2024-02-06] MEDS: BALMEX CREAM 1 APPLIC TOPICAL ×3 (09:27→21:42)
--- NOTE | 2024-02-06 09:39 | W.PN.HOSP.TC ---
Today's Communication/Plan
-
Pain control, consider starting oral Dilaudid
Assessment / Plan
Assessment / Plan
HPI: 58-year-old male with a past medical history of end-stage renal failure on dialysis Friday/Friday/Friday, diabetes, anemia, diabetic neuropathy, osteomyelitis status post right BKA, hypertension, hyperlipidemia, and stroke who presents with
chest pain and shortness of breath. Patient states that he woke up at 1 AM, and felt chest tightness and shortness of breath. He reports it 6 out of 10 in intensity, no aggravating or relieving factors identified. Denies nausea, vomiting. No
abdominal pain. He has chronic diarrhea. Patient was recently discharged from [facility] 4 days ago on 01/24/2024 after treatment of left lower extremity leg wound with surrounding cellulitis. He is on cefuroxime 500 mg daily through
01/29/2024, and oral vancomycin for C. difficile prophylaxis.
#Left plantar wound with surrounding cellulitis and possible abscess
Was on cefuroxime 500 mg daily through 01/29/2024, and oral vancomycin for C. difficile prophylaxis
Appreciate ID input, stopped Abx post amputation
Appreciate podiatry help.
Appreciate vascular surgery input: with severe PAD, s/p BKA 02/03
On PCI for pain control
Atypical chest pain
S/p aspirin 324 mg, Nitrostat sublingual as needed
Troponin was negative, chest tightness resolved, not consistent with ACS
Echo with normal biventricular size and systolic function without regional wall motion abnormalities, mild < EF 60-65%
#End-stage renal failure on dialysis Friday/Friday/Friday
#Shortness of breath
Continue dialysis as per nephrology
Continue midodrine before dialysis
Continue Sevelamer
#Adjustment disorder with depressed mood
Appreciate psychiatry input, who states patient is not suicidal.
No need for one-to-one
Patient declined increasing his Lexapro dose, continue current dose
#Severe b/l upper extremity edema
01/20/2024 left upper extremity Doppler negative for DVT
01/29/2024 right upper extremity Dopplers negative for DVT, +small chronic thrombus in the cephalic vein
#Benign essential hypertension
Continue amlodipine 10 mg daily
# Hyponatremia
Mild
#Diabetes
Continue glargine 4 units at bedtime, diabetic diet, sliding scale insulin
#GERD
Continue PPI
#Anemia of chronic disease
Hemoglobin at baseline, continue iron supplements, trend
#History of stroke
Continue Plavix, statin
#Anxiety/depression
Continue SSRI
DVT prophylaxis�subcu heparin
Full code
Dispo - from [facility]
Total time spent to see the patient on the floor, examine the patient, review data and lab results, discuss treatment plan with patient, nursing staff around 55 minutes.
Physical Exam
General: No Apparent Distress
HEENT: NormoCephalic, Anicteric, Moist mucous membranes and Atraumatic
Respiratory: Clear
Cardiac: S1/S2 and Regular Rhythm
GI: Soft, Non Tender, Non Distended and Normal Bowel Sounds
Musculoskeletal: No Clubbing, BKA left with dressing. Right BKA noted)
Skin: Left foot dressing
Psych: Calm
Total time spent to see the patient on the floor, examine the patient, review data and lab results, discuss treatment plan with patient, nursing staff around 45 minutes
Anticipated Discharge: Within 24 hours
Subjective/Interval History
-
Date of Service: February 06, 2024
Pain at amputation side, left thigh/knee
Objective Data
-
Labs:
Laboratory Results
02/06/24
07:00
Hgb Pending
Hct Pending
Vital Signs:
Vital Signs
Temp Pulse Resp BP Pulse Ox
97.7 F 56 17 150/65 100
02/06/24 07:36 02/06/24 07:36 02/06/24 07:36 02/06/24 07:36 02/06/24 07:36
I&O
02/05/24 02/06/24 02/07/24
06:59 06:59 06:59
Intake Total 1800 / 1800
Output Total 0 / 0
Balance 1800 / 1800
[2024-02-06] MEDS: DESENEX/MITRAZOL/ZEASORB 1 APPLIC TOPICAL ×2 (10:15→21:43)
[2024-02-06 11:30] VITALS: BP 112/58
[2024-02-06 11:58] LABS: Glucose - Point of Care 198 mg/dl (70-99)
--- NOTE | 2024-02-06 12:14 | W.PN.VS ---
Today's Communication / Plan
-
Discussed with Dr. Mack
Assessment/Plan
-
Assessment: 48-year-old male POD #2 left BKA
Plan:
Switch [employer] to p.o. pain management
PT
Daily dressing change with gentle Prabhu wrap as patient tolerates
Subjective Data
-
Date of Service: February 06, 2024
Patient seen at bedside this a.m. while on HD. No events overnight. Stump dressing dry.
Objective Data
-
Vital Signs
Temp Pulse Resp BP Pulse Ox
98.2 F 59 16 112/58 96
02/06/24 11:30 02/06/24 11:30 02/06/24 11:30 02/06/24 11:30 02/06/24 11:30
Intake and Output
02/05/24 02/06/24 02/07/24
06:59 06:59 06:59
Intake Total 20 / 20 1800 / 1800
Output Total 0 / 0
Balance 20 / 20 1800 / 1800
Intake:
Oral fluids 1800 / 1800
IV fluids (Total) 20 / 20
D51/2NS 20 / 20
Output:
Urine, Voided 0 / 0
Calcium 7.1 mg/dl (8.4-10.2) L 02/05/24 12:55
Phosphorus 3.2 mg/dl (2.5-4.5) 01/31/24 08:42
Magnesium 2.0 mg/dl (1.6-2.3) 01/31/24 08:42
Total Bilirubin 0.5 mg/dl (0.2-1.3) 01/28/24 04:25
AST 25 U/L (17-59) 01/28/24 04:25
ALT 20 U/L (0-50) 01/28/24 04:25
Alkaline Phosphatase 177 U/L (38-126) H 01/28/24 04:25
Total Protein 5.7 g/dl (6.3-8.2) L 01/28/24 04:25
Albumin 2.7 g/dl (3.5-5.0) L 01/28/24 04:25
Physical Exam
-
No apparent distress, resting in bed comfortably eating breakfast
No tachycardia
No dyspnea on room air
Left BKA surgical dressing CDI, no evidence of bleeding, no edema-dressing removed by me at bedside, woo intact, skin edges well-approximated and in good condition, scant sanguinous ooze from medial edge
Redressed
[2024-02-06] MEDS: ProAmatine PO (13:07)
--- NOTE | 2024-02-06 13:11 | W.PN.NEPH.HD ---
Assessment
-
Seen on HD. no complaints except pain. VSS, access ok
use AVF next treatment as volume status better
Progress Note - Hemodialysis
-
Date of Service: February 06, 2024
Duration: 30 minutes and 3 hours
Potassium Bath: 2
Calcium Bath: 2.5
Opti-Dialyzer: 160
Ultrafiltration: Other (2kg)
Blood Flow: 400
Dialysate Flow: 600
Heparin: 0
EPO: 0
[2024-02-06 13:21] LABS: Hemoglobin 8.9 g/dL (13.0-18.0)
[2024-02-06 13:33] LABS: Blood Urea Nitrogen 28 mg/dl (9-20); Calcium 7.2 mg/dl (8.4-10.2); Carbon Dioxide 27 mmol/L (22-30); Chloride 98 mmol/L (98-107); Estimated Creatinine Clearance 25 ml/min; Glucose 203 mg/dl (70-99); Potassium 3.6 mmol/L (3.5-5.1); Sodium 136 mmol/L (135-145); eGFR 24.46
[2024-02-06 15:24] VITALS: BP 146/67
[2024-02-06] MEDS: HEPARIN 3200 UNITS INTRACATH (16:04)
[2024-02-06] MEDS: DILAUDID 2 MG PO (16:52)
[2024-02-06] MEDS: NOVOLOG FLEXPEN-MODERATE RESISTANCE SC (16:53)
[2024-02-06 16:54] LABS: Glucose - Point of Care 123 mg/dl (70-99)
[2024-02-06 19:44] VITALS: BP 159/94
[2024-02-06] MEDS: LANTUS 0.04 UNITS SC (21:32)
[2024-02-06] MEDS: DESYREL 100 MG PO (21:32)
[2024-02-06] MEDS: LIPITOR 20 MG PO (21:32)
[2024-02-06 21:36] LABS: Glucose - Point of Care 150 mg/dl (70-99)
[2024-02-06] MEDS: LAC HYDRIN, AM LACTIN LOTION TOPICAL (21:41)
[2024-02-06] MEDS: IMODIUM 2 MG PO (21:47)
[2024-02-06 23:00] VITALS: BP 160/59
[2024-02-07 03:00] VITALS: BP 166/62
[2024-02-07] MEDS: ROXICODONE 5 MG PO ×4 (04:53→21:21)
[2024-02-07 06:00] VITALS: BMI 25.3
[2024-02-07 07:09] LABS: Glucose - Point of Care 113 mg/dl (70-99)
[2024-02-07 07:35] VITALS: BP 165/71
[2024-02-07] MEDS: NOVOLOG FLEXPEN-MODERATE RESISTANCE SC ×2 (07:53→16:43)
[2024-02-07] MEDS: RENVELA 800 MG PO ×3 (08:53→16:44)
[2024-02-07] MEDS: DEMADEX 120 MG PO (08:53)
[2024-02-07] MEDS: PROTONIX 40 MG PO (08:53)
[2024-02-07] MEDS: PLAVIX 75 MG PO (08:54)
[2024-02-07] MEDS: NEPHROCAP 1 CAPSULE PO (08:54)
[2024-02-07] MEDS: JANUVIA 25 MG PO (08:54)
[2024-02-07] MEDS: NORVASC 10 MG PO (08:54)
[2024-02-07] MEDS: DESENEX/MITRAZOL/ZEASORB 1 APPLIC TOPICAL ×2 (08:55→21:13)
[2024-02-07] MEDS: HEPARIN 5000 UNITS SC ×2 (08:55→21:12)
[2024-02-07] MEDS: FEOSOL 325 MG PO (08:55)
[2024-02-07] MEDS: LAC HYDRIN, AM LACTIN LOTION TOPICAL ×2 (08:57→21:13)
[2024-02-07] MEDS: LEXAPRO 15 MG PO (10:34)
[2024-02-07] MEDS: DAKIN'S SOLUTION 0.125% 1/4 STRENGTH TOPICAL ×3 (10:37→17:50)
[2024-02-07] MEDS: BALMEX CREAM 1 APPLIC TOPICAL ×3 (10:38→21:13)
--- NOTE | 2024-02-07 10:43 | W.PN.NEPH.PH ---
Today's Communication / Plan
-
HD friday
Assessment/Plan
-
Assessment
ESRD
Hypertension
volume overload
AV fistula left upper arm
Left lower leg wound
Diabetes mellitus type 2
Rt AKA
Chest discomfort, normal troponin
Plan
Hemodialysis friday
on friday AV fistula use
pain management per primary team
-
-
Date of Service: February 07, 2024
CC / HPI / ROS
-
Chief Complaint:
ESRD
History of Present Illness:
tolerated HD yesterday ESRD: MWF
BP stable
Remains on Zosyn for left foot infection
edema better
Review of Systems:
no CP/SOB
pain in amp site
Labs
-
Labs:
WBC 5.6 10^3/uL (4.8-10.8) 02/05/24 12:55
WBC Cancelled 02/05/24 12:55
RBC 2.94 10^6/uL (4.70-6.10) L 02/05/24 12:55
RBC Cancelled 02/05/24 12:55
Hgb 8.9 g/dL (13.0-18.0) L 02/06/24 13:00
Hct 28.0 % (39.0-52.0) L 02/06/24 13:00
Plt Count 231 10^3/uL (130-400) D 02/05/24 12:55
Plt Count Cancelled 02/05/24 12:55
Sodium 136 mmol/L (135-145) 02/06/24 13:00
Potassium 3.6 mmol/L (3.5-5.1) 02/06/24 13:00
Chloride 98 mmol/L (98-107) 02/06/24 13:00
Carbon Dioxide 27 mmol/L (22-30) 02/06/24 13:00
BUN 28 mg/dl (9-20) H 02/06/24 13:00
Creatinine 2.9 mg/dL (0.7-1.3) H 02/06/24 13:00
eGFR 24.46 02/06/24 13:00
Glucose 203 mg/dl (70-99) H 02/06/24 13:00
Calcium 7.2 mg/dl (8.4-10.2) L 02/06/24 13:00
Phosphorus 3.2 mg/dl (2.5-4.5) 01/31/24 08:42
Zsu-T-Arrtydmivrn Pept 76951 pg/ml 01/28/24 04:25
Albumin 2.7 g/dl (3.5-5.0) L 01/28/24 04:25
Physical Exam
-
Vital Signs:
Vital Signs
Temp Pulse Resp BP Pulse Ox
98.5 F 62 17 165/71 97
02/07/24 07:35 02/07/24 08:53 02/07/24 07:35 02/07/24 08:53 02/07/24 07:35
Cardiovascular:: Regular rate and rhythm
Respiratory:: Bilateral: CTA
Lung Excursion:: Normal
Abdomen:: Nontender and Soft
Bowel Sounds:: Normal
Extremity Edema:: +1: Bilateral:
[2024-02-07 11:35] VITALS: BP 169/59
--- NOTE | 2024-02-07 11:53 | W.PN.HOSP.TC ---
Today's Communication/Plan
-
.
Assessment / Plan
Assessment / Plan
HPI: 58-year-old male with a past medical history of end-stage renal failure on dialysis Friday/Friday/Friday, diabetes, anemia, diabetic neuropathy, osteomyelitis status post right BKA, hypertension, hyperlipidemia, and stroke who presents with
chest pain and shortness of breath. Patient states that he woke up at 1 AM, and felt chest tightness and shortness of breath. He reports it 6 out of 10 in intensity, no aggravating or relieving factors identified. Denies nausea, vomiting. No
abdominal pain. He has chronic diarrhea. Patient was recently discharged from [facility] 4 days ago on 01/24/2024 after treatment of left lower extremity leg wound with surrounding cellulitis. He is on cefuroxime 500 mg daily through
01/29/2024, and oral vancomycin for C. difficile prophylaxis.
#Left plantar wound with surrounding cellulitis and possible abscess
Was on cefuroxime 500 mg daily through 01/29/2024, and oral vancomycin for C. difficile prophylaxis
Appreciate ID input, stopped Abx post amputation
Appreciate podiatry help.
Appreciate vascular surgery input: with severe PAD, s/p BKA 02/03
s/p PCI for pain control, to try oral Dilaudid
Atypical chest pain
S/p aspirin 324 mg, Nitrostat sublingual as needed
Troponin was negative, chest tightness resolved, not consistent with ACS
Echo with normal biventricular size and systolic function without regional wall motion abnormalities, mild < EF 60-65%
#End-stage renal failure on dialysis Friday/Friday/Friday
#Shortness of breath
Plan to use left arm fistula on Friday
Continue dialysis as per nephrology
Continue midodrine before dialysis
Continue Sevelamer
#Adjustment disorder with depressed mood
Appreciate psychiatry input, who states patient is not suicidal.
No need for one-to-one
Patient declined increasing his Lexapro dose, continue current dose
#Severe b/l upper extremity edema
01/20/2024 left upper extremity Doppler negative for DVT
01/29/2024 right upper extremity Doppler negative for DVT, +small chronic thrombus in the cephalic vein
Encourage moving UEs to improve circulation.
#Benign essential hypertension
Uncontrolled
Continue amlodipine 10 mg daily
# Hyponatremia
Mild
#Diabetes
Continue glargine 4 units at bedtime, diabetic diet, sliding scale insulin
#GERD
Continue PPI
#Anemia of chronic disease
Hemoglobin at baseline, continue iron supplements, trend
#History of stroke
Continue Plavix, statin
#Anxiety/depression
Continue SSRI
DVT prophylaxis�subcu heparin
Full code
Dispo - from [facility]
Total time spent to see the patient on the floor, examine the patient, review data and lab results, discuss treatment plan with patient, nursing staff around 55 minutes.
Physical Exam
General: No Apparent Distress
HEENT: NormoCephalic, Anicteric, Moist mucous membranes and Atraumatic
Respiratory: Clear
Cardiac: S1/S2 and Regular Rhythm
GI: Soft, Non Tender, Non Distended and Normal Bowel Sounds
Musculoskeletal: No Clubbing, BKA left with dressing. Right BKA noted)
Skin: Left foot dressing
neuro; non focal, AAOX3.
Psych: Calm
Total time spent to see the patient on the floor, examine the patient, review data and lab results, discuss treatment plan with patient, nursing staff around 45 minutes
Anticipated Discharge: > 48 hours
Subjective/Interval History
-
Date of Service: February 07, 2024
Pain in left thigh
No chest pain
Objective Data
-
Vital Signs:
Vital Signs
Temp Pulse Resp BP Pulse Ox
98.7 F 60 17 169/59 96
02/07/24 11:35 02/07/24 11:35 02/07/24 11:35 02/07/24 11:35 02/07/24 11:35
I&O
02/06/24 02/07/24 02/08/24
06:59 06:59 06:59
Intake Total 1800 / 1800 900 / 900
Output Total 0 / 0
Balance 1800 / 1800 900 / 900
[2024-02-07 11:59] LABS: Glucose - Point of Care 150 mg/dl (70-99)
[2024-02-07] MEDS: NOVOLOG FLEXPEN-MODERATE RESISTANCE 1 UNITS SC (11:59)
[2024-02-07 15:14] VITALS: BP 161/57
[2024-02-07 16:44] LABS: Glucose - Point of Care 143 mg/dl (70-99)
[2024-02-07 19:32] VITALS: BP 150/64
[2024-02-07 21:21] VITALS: BMI 25.3
[2024-02-07 21:39] LABS: Glucose - Point of Care 181 mg/dl (70-99)
[2024-02-07 23:10] VITALS: BP 152/64
[2024-02-07] MEDS: DESYREL 100 MG PO (23:58)
[2024-02-07] MEDS: LIPITOR 20 MG PO (23:58)
[2024-02-07] MEDS: LANTUS 0.04 UNITS SC (23:58)
[2024-02-08 03:36] VITALS: BP 144/68
[2024-02-08] MEDS: ROXICODONE 5 MG PO ×2 (03:44→08:51)
[2024-02-08 06:00] VITALS: BMI 25.4
[2024-02-08 07:50] LABS: Glucose - Point of Care 124 mg/dl (70-99)
[2024-02-08 08:00] VITALS: BMI 25.4
[2024-02-08 08:20] VITALS: BP 156/57
[2024-02-08] MEDS: JANUVIA 25 MG PO (08:41)
[2024-02-08] MEDS: RENVELA 800 MG PO ×3 (08:41→17:42)
[2024-02-08] MEDS: NEPHROCAP 1 CAPSULE PO (08:41)
[2024-02-08] MEDS: PROTONIX 40 MG PO (08:41)
[2024-02-08] MEDS: FEOSOL 325 MG PO (08:42)
[2024-02-08] MEDS: LEXAPRO 15 MG PO (08:42)
[2024-02-08] MEDS: PLAVIX 75 MG PO (08:42)
[2024-02-08] MEDS: LAC HYDRIN, AM LACTIN LOTION TOPICAL ×2 (08:42→22:33)
[2024-02-08] MEDS: NORVASC 10 MG PO (08:42)
[2024-02-08] MEDS: DEMADEX 120 MG PO (08:42)
[2024-02-08] MEDS: NOVOLOG FLEXPEN-MODERATE RESISTANCE SC ×3 (08:43→17:59)
[2024-02-08] MEDS: BALMEX CREAM 1 APPLIC TOPICAL ×3 (10:09→22:36)
[2024-02-08] MEDS: DAKIN'S SOLUTION 0.125% 1/4 STRENGTH TOPICAL ×2 (10:09→20:50)
[2024-02-08] MEDS: DESENEX/MITRAZOL/ZEASORB 1 APPLIC TOPICAL ×2 (10:10→20:49)
--- NOTE | 2024-02-08 10:25 | W.PN.HOSP.TC ---
Today's Communication/Plan
-
HD on Friday
Avoid use of Oxy due to ESRD
Increase dose of PRN Oral Dilaudid, add IV PRN Dilaudid
Assessment / Plan
Assessment / Plan
HPI: 58-year-old male with a past medical history of end-stage renal failure on dialysis Friday/Friday/Friday, diabetes, anemia, diabetic neuropathy, osteomyelitis status post right BKA, hypertension, hyperlipidemia, and stroke who presents with
chest pain and shortness of breath. Patient states that he woke up at 1 AM, and felt chest tightness and shortness of breath. He reports it 6 out of 10 in intensity, no aggravating or relieving factors identified. Denies nausea, vomiting. No
abdominal pain. He has chronic diarrhea. Patient was recently discharged from [facility] 4 days ago on 01/24/2024 after treatment of left lower extremity leg wound with surrounding cellulitis. He is on cefuroxime 500 mg daily through
01/29/2024, and oral vancomycin for C. difficile prophylaxis.
#Left plantar wound with surrounding cellulitis and possible abscess
Was on cefuroxime 500 mg daily through 01/29/2024, and oral vancomycin for C. difficile prophylaxis
Appreciate ID input, stopped Abx post amputation
Appreciate podiatry help.
Appreciate vascular surgery input: with severe PAD, s/p BKA 02/03
s/p PCI for pain control , Avoid oxy , increase dose of Dilaudid PRN
Atypical chest pain
S/p aspirin 324 mg, Nitrostat sublingual as needed
Troponin was negative, chest tightness resolved, not consistent with ACS
Echo with normal biventricular size and systolic function without regional wall motion abnormalities, mild < EF 60-65%
#End-stage renal failure on dialysis Friday/Friday/Friday
#Shortness of breath
Plan to use left arm fistula on Friday
Continue dialysis as per nephrology
Continue midodrine before dialysis
Continue Sevelamer
#Adjustment disorder with depressed mood
Appreciate psychiatry input, who states patient is not suicidal.
No need for one-to-one
Patient declined increasing his Lexapro dose, continue current dose
#Severe b/l upper extremity edema
01/20/2024 left upper extremity Doppler negative for DVT
01/29/2024 right upper extremity Doppler negative for DVT, +small chronic thrombus in the cephalic vein, Encourage use of UEs to decrease swelling.
#Benign essential hypertension
Continue amlodipine 10 mg daily
# Hyponatremia
Mild
#Diabetes
Continue glargine 4 units at bedtime, diabetic diet, sliding scale insulin
#GERD
Continue PPI
#Anemia of chronic disease
Hemoglobin at baseline, continue iron supplements, trend
#History of stroke
Continue Plavix, statin
#Anxiety/depression
Continue SSRI
DVT prophylaxis�subcu heparin
Full code
Dispo - from [facility]
Total time spent to see the patient on the floor, examine the patient, review data and lab results, discuss treatment plan with patient, nursing staff around 55 minutes.
Physical Exam
General: No Apparent Distress
HEENT: NormoCephalic, Anicteric, Moist mucous membranes and Atraumatic
Respiratory: Clear
Cardiac: S1/S2 and Regular Rhythm
GI: Soft, Non Tender, Non Distended and Normal Bowel Sounds
Musculoskeletal: No Clubbing, BKA left with dressing. Right BKA noted)
Skin: Left foot dressing
Neuro: AAO X3, non focal
Psych: Calm
Total time spent to see the patient on the floor, examine the patient, review data and lab results, discuss treatment plan with patient, nursing staff around 57 minutes
Anticipated Discharge: 24 - 48 hours
Subjective/Interval History
-
Date of Service: February 08, 2024
Less pain in left thigh
Objective Data
-
Vital Signs:
Vital Signs
Temp Pulse Resp BP Pulse Ox
97.8 F 60 17 156/57 97
02/08/24 08:20 02/08/24 08:20 02/08/24 08:20 02/08/24 08:20 02/08/24 08:20
I&O
02/07/24 02/08/24 02/09/24
06:59 06:59 06:59
Intake Total 900 / 900 1200 / 1200
Balance 900 / 900 1200 / 1200
--- NOTE | 2024-02-08 10:30 | W.PN.NEPH.PH ---
Today's Communication / Plan
-
Dialysis tomorrow
Assessment/Plan
-
Assessment
ESRD
Hypertension
volume overload
AV fistula left upper arm
Left lower leg wound
Diabetes mellitus type 2
Rt AKA
Chest discomfort, normal troponin
Plan
Hemodialysis friday
on friday AV fistula use
pain management per primary team
-
-
Date of Service: February 08, 2024
CC / HPI / ROS
-
Chief Complaint:
ESRD
History of Present Illness:
tolerated HD Friday ESRD: MWF
BP stable
Off antibiotics after amputation
edema better
Review of Systems:
no CP/SOB
pain in amp site
Labs
-
Labs:
WBC 5.6 10^3/uL (4.8-10.8) 02/05/24 12:55
WBC Cancelled 02/05/24 12:55
RBC 2.94 10^6/uL (4.70-6.10) L 02/05/24 12:55
RBC Cancelled 02/05/24 12:55
Hgb 8.9 g/dL (13.0-18.0) L 02/06/24 13:00
Hct 28.0 % (39.0-52.0) L 02/06/24 13:00
Plt Count 231 10^3/uL (130-400) D 02/05/24 12:55
Plt Count Cancelled 02/05/24 12:55
Sodium 136 mmol/L (135-145) 02/06/24 13:00
Potassium 3.6 mmol/L (3.5-5.1) 02/06/24 13:00
Chloride 98 mmol/L (98-107) 02/06/24 13:00
Carbon Dioxide 27 mmol/L (22-30) 02/06/24 13:00
BUN 28 mg/dl (9-20) H 02/06/24 13:00
Creatinine 2.9 mg/dL (0.7-1.3) H 02/06/24 13:00
eGFR 24.46 02/06/24 13:00
Glucose 203 mg/dl (70-99) H 02/06/24 13:00
Calcium 7.2 mg/dl (8.4-10.2) L 02/06/24 13:00
Phosphorus 3.2 mg/dl (2.5-4.5) 01/31/24 08:42
Jjg-A-Niihdgpadat Pept 26900 pg/ml 01/28/24 04:25
Albumin 2.7 g/dl (3.5-5.0) L 01/28/24 04:25
Physical Exam
-
Vital Signs:
Vital Signs
Temp Pulse Resp BP Pulse Ox
97.8 F 60 17 156/57 97
02/08/24 08:20 02/08/24 08:20 02/08/24 08:20 02/08/24 08:20 02/08/24 08:20
Cardiovascular:: Regular rate and rhythm
Respiratory:: Bilateral: Coarse
Lung Excursion:: Normal
Abdomen:: Nontender and Soft
Bowel Sounds:: Normal
Extremity Edema:: None: Bilateral:
[2024-02-08 11:25] VITALS: BP 155/66
[2024-02-08 11:31] LABS: Glucose - Point of Care 112 mg/dl (70-99)
[2024-02-08] MEDS: HEPARIN 5000 UNITS SC ×2 (11:53→20:49)
[2024-02-08 15:00] VITALS: BP 150/66
[2024-02-08] MEDS: TYLENOL 650 MG PO (15:34)
[2024-02-08 16:23] LABS: Glucose - Point of Care 119 mg/dl (70-99)
[2024-02-08 19:16] VITALS: BP 128/60
[2024-02-08] MEDS: DILAUDID 4 MG PO (19:38)
[2024-02-08 22:16] LABS: Glucose - Point of Care 131 mg/dl (70-99)
[2024-02-08] MEDS: DESYREL 100 MG PO (22:35)
[2024-02-08] MEDS: LIPITOR 20 MG PO (22:35)
[2024-02-08 22:36] VITALS: BMI 25.4
[2024-02-08] MEDS: LANTUS 0.04 UNITS SC (22:36)
[2024-02-08 23:09] VITALS: BP 134/61
[2024-02-09] MEDS: DILAUDID 4 MG PO ×3 (03:02→22:02)
[2024-02-09 03:36] VITALS: BP 147/60
[2024-02-09 05:53] VITALS: BMI 25.7
[2024-02-09 07:30] VITALS: BP 172/63
[2024-02-09] MEDS: NOVOLOG FLEXPEN-MODERATE RESISTANCE SC ×3 (07:56→16:50)
[2024-02-09 07:57] LABS: Glucose - Point of Care 98 mg/dl (70-99)
[2024-02-09 08:31] LABS: Hematocrit 27.4 % (39.0-52.0); Hemoglobin 9.2 g/dL (13.0-18.0)
[2024-02-09 08:42] LABS: Carbon Dioxide 25 mmol/L (22-30); Chloride 97 mmol/L (98-107); Potassium 4.8 mmol/L (3.5-5.1); Sodium 134 mmol/L (135-145)
--- NOTE | 2024-02-09 09:20 | W.PN.HOSP.TC ---
Today's Communication/Plan
-
Discharge back to [place] tomorrow
Assessment / Plan
Assessment / Plan
HPI: 58-year-old male with a past medical history of end-stage renal failure on dialysis Friday/Friday/Friday, diabetes, anemia, diabetic neuropathy, osteomyelitis status post right BKA, hypertension, hyperlipidemia, and stroke who presents with
chest pain and shortness of breath. Patient states that he woke up at 1 AM, and felt chest tightness and shortness of breath. He reports it 6 out of 10 in intensity, no aggravating or relieving factors identified. Denies nausea, vomiting. No
abdominal pain. He has chronic diarrhea. Patient was recently discharged from [facility] 4 days ago on 01/24/2024 after treatment of left lower extremity leg wound with surrounding cellulitis. He is on cefuroxime 500 mg daily through
01/29/2024, and oral vancomycin for C. difficile prophylaxis.
#Left plantar wound with surrounding cellulitis and possible abscess
Was on cefuroxime 500 mg daily through 01/29/2024, and oral vancomycin for C. difficile prophylaxis
Appreciate ID input, stopped Abx post amputation
Appreciate podiatry input.
Appreciate vascular surgery input: with severe PAD, s/p BKA 02/03
S/p PCI for pain control , Avoid oxy , increased dose of oral Dilaudid PRN
Plan for discharge back to nursing facility tomorrow
#Atypical chest pain
S/p aspirin 324 mg, Nitrostat sublingual as needed
Troponin was negative, chest tightness resolved, not consistent with ACS
Echo with normal biventricular size and systolic function without regional wall motion abnormalities, mild < EF 60-65%
#End-stage renal failure on dialysis Friday/Friday/Friday
#Shortness of breath
Plan to use left arm fistula on Friday
Continue dialysis as per nephrology
Continue midodrine before dialysis
Continue Sevelamer
#Adjustment disorder with depressed mood
Appreciate psychiatry input, who states patient is not suicidal.
No need for one-to-one
Patient declined increasing his Lexapro dose, continue current dose
#Severe b/l upper extremity edema
01/20/2024 left upper extremity Doppler negative for DVT
01/29/2024 right upper extremity Doppler negative for DVT, +small chronic thrombus in the cephalic vein, Encourage use of UEs to decrease swelling.
#Benign essential hypertension
Continue amlodipine 10 mg daily
# Hyponatremia
Mild
#Diabetes
Continue glargine 4 units at bedtime, diabetic diet, sliding scale insulin
#GERD
Continue PPI
#Anemia of chronic disease
Hemoglobin at baseline, continue iron supplements, trend
#History of stroke
Continue Plavix, statin
#Anxiety/depression
Continue SSRI
DVT prophylaxis�subcu heparin
Full code
Dispo - from [facility]
Total time spent to see the patient on the floor, examine the patient, review data and lab results, discuss treatment plan with patient, nursing staff around 45 minutes.
Physical Exam
General: No Apparent Distress
HEENT: NormoCephalic, Anicteric, Moist mucous membranes and Atraumatic
Respiratory: Clear
Cardiac: S1/S2 and Regular Rhythm
GI: Soft, Non Tender, Non Distended and Normal Bowel Sounds
Musculoskeletal: No Clubbing, left BKA with dressing. Previous right BKA noted
Skin: Left foot dressing
Neuro: AAO X3, non focal
Psych: Calm
Total time spent to see the patient on the floor, examine the patient, review data and lab results, discuss treatment plan with patient, nursing staff around 57 minutes
Anticipated Discharge: Within 24 hours
Subjective/Interval History
-
Date of Service: February 09, 2024
Patient reports his left BKA stump pain is tolerable. No chest pain, no shortness of breath. Denies constipation. No fever, no vomiting.
Objective Data
-
Labs:
Laboratory Results
02/09/24
08:13
Hgb 9.2 L
Hct 27.4 L
Sodium 134 L
Potassium 4.8 D
Chloride 97 L
Carbon Dioxide 25
Vital Signs:
Vital Signs
Temp Pulse Resp BP Pulse Ox
97.5 F 56 16 172/63 96
02/09/24 07:30 02/09/24 07:30 02/09/24 07:30 02/09/24 07:30 02/09/24 07:30
I&O
02/08/24 02/09/24 02/10/24
06:59 06:59 06:59
Intake Total 1200 / 1200 1170 / 1170
Balance 1200 / 1200 1170 / 1170
--- NOTE | 2024-02-09 10:36 | W.PN.NEPH.HD ---
Assessment
-
pt seen during HD
vitals stable
AVF functions well 2 needles, likely d/c CVC prior to d/c
UF as tolerates
strict renal diet and FR
Progress Note - Hemodialysis
-
Date of Service: February 09, 2024
Duration: 30 minutes and 3 hours
Potassium Bath: 2
Calcium Bath: 2.5
Opti-Dialyzer: 160
Ultrafiltration: Other (2kg)
Blood Flow: 400
Dialysate Flow: 600
Heparin: no
EPO: 6000
[2024-02-09 11:00] VITALS: BP 146/108
[2024-02-09] MEDS: RETACRIT 6000 UNITS IV (11:13)
[2024-02-09 11:35] LABS: Glucose - Point of Care 99 mg/dl (70-99)
[2024-02-09] MEDS: RENVELA PO ×2 (13:07→13:08)
[2024-02-09] MEDS: DEMADEX 120 MG PO (13:08)
[2024-02-09] MEDS: PROTONIX 40 MG PO (13:09)
[2024-02-09] MEDS: LEXAPRO 15 MG PO (13:09)
[2024-02-09] MEDS: FEOSOL 325 MG PO (13:10)
[2024-02-09] MEDS: HEPARIN 5000 UNITS SC ×2 (13:10→21:51)
[2024-02-09] MEDS: JANUVIA 25 MG PO (13:10)
[2024-02-09] MEDS: NORVASC 10 MG PO (13:10)
[2024-02-09] MEDS: DESENEX/MITRAZOL/ZEASORB 1 APPLIC TOPICAL ×2 (13:10→21:51)
[2024-02-09] MEDS: PLAVIX 75 MG PO (13:10)
[2024-02-09] MEDS: DAKIN'S SOLUTION 0.125% 1/4 STRENGTH TOPICAL ×2 (13:11→20:04)
[2024-02-09] MEDS: BALMEX CREAM 1 APPLIC TOPICAL ×3 (13:11→21:52)
[2024-02-09] MEDS: LAC HYDRIN, AM LACTIN LOTION TOPICAL ×2 (13:11→20:03)
[2024-02-09] MEDS: ProAmatine PO (13:12)
[2024-02-09] MEDS: NEPHROCAP 1 CAPSULE PO (13:12)
[2024-02-09 15:30] VITALS: BP 163/67
--- NOTE | 2024-02-09 16:46 | CM ---
card room manager reviewed patient's chart and patient is for possible discharge tomorrow back to [facility], wrapper caser reached out to [facility] and made them aware.
[facility]
Report [phone]
--- NOTE | 2024-02-09 16:46 | PN.IRAD.UPD ---
Update Note - IRAD
- -
Cleaned right sided Tunneled HD catheter with chloraprep and removed bedside. Site dressed with gauze and a primapore.
Nelson Devine RT(R)()
[2024-02-09] MEDS: RENVELA 800 MG PO (16:49)
[2024-02-09 16:52] LABS: Glucose - Point of Care 100 mg/dl (70-99)
[2024-02-09 19:24] VITALS: BP 156/65
[2024-02-09 21:24] LABS: Glucose - Point of Care 128 mg/dl (70-99)
[2024-02-09] MEDS: LIPITOR 20 MG PO (21:52)
[2024-02-09] MEDS: LANTUS 0.04 UNITS SC (21:52)
[2024-02-09] MEDS: DESYREL 100 MG PO (21:52)
[2024-02-09 23:13] VITALS: BP 138/59
[2024-02-10 03:14] VITALS: BP 134/58
[2024-02-10] MEDS: TYLENOL 650 MG PO (05:04)
[2024-02-10 06:00] VITALS: BMI 25.3
[2024-02-10 07:01] LABS: Glucose - Point of Care 85 mg/dl (70-99)
[2024-02-10 08:21] VITALS: BP 125/53
[2024-02-10] MEDS: RENVELA 800 MG PO (08:22)
[2024-02-10] MEDS: PROTONIX 40 MG PO (08:22)
[2024-02-10] MEDS: FEOSOL 325 MG PO (08:22)
[2024-02-10] MEDS: NEPHROCAP 1 CAPSULE PO (08:22)
[2024-02-10] MEDS: LEXAPRO 15 MG PO (08:22)
[2024-02-10] MEDS: NORVASC 10 MG PO (08:22)
[2024-02-10] MEDS: JANUVIA 25 MG PO (08:22)
[2024-02-10] MEDS: PLAVIX 75 MG PO (08:23)
[2024-02-10] MEDS: DEMADEX 120 MG PO (08:23)
[2024-02-10] MEDS: BALMEX CREAM 1 APPLIC TOPICAL (08:24)
[2024-02-10] MEDS: DAKIN'S SOLUTION 0.125% 1/4 STRENGTH TOPICAL (08:24)
[2024-02-10] MEDS: DESENEX/MITRAZOL/ZEASORB 1 APPLIC TOPICAL (08:25)
[2024-02-10] MEDS: NOVOLOG FLEXPEN-MODERATE RESISTANCE SC ×2 (08:25→12:36)
[2024-02-10] MEDS: LAC HYDRIN, AM LACTIN LOTION TOPICAL (08:26)
[2024-02-10] MEDS: HEPARIN 5000 UNITS SC (08:26)
[2024-02-10] MEDS: DILAUDID 4 MG PO (08:44)
--- NOTE | 2024-02-10 08:57 | W.PN.HOSP.TC ---
Today's Communication/Plan
-
Discharge to [place] today
Assessment / Plan
Assessment / Plan
HPI: 58-year-old male with a past medical history of end-stage renal failure on dialysis Friday/Friday/Friday, diabetes, anemia, diabetic neuropathy, osteomyelitis status post right BKA, hypertension, hyperlipidemia, and stroke who presents with
chest pain and shortness of breath. Patient states that he woke up at 1 AM, and felt chest tightness and shortness of breath. He reports it 6 out of 10 in intensity, no aggravating or relieving factors identified. Denies nausea, vomiting. No
abdominal pain. He has chronic diarrhea. Patient was recently discharged from [facility] 4 days ago on 01/24/2024 after treatment of left lower extremity leg wound with surrounding cellulitis. He is on cefuroxime 500 mg daily through
01/29/2024, and oral vancomycin for C. difficile prophylaxis.
#Left plantar wound with surrounding cellulitis and possible abscess
Was on cefuroxime 500 mg daily through 01/29/2024, and oral vancomycin for C. difficile prophylaxis
Appreciate ID input, stopped Abx post amputation
Appreciate podiatry input.
Appreciate vascular surgery input: with severe PAD, s/p left BKA 02/03
S/p PCI for pain control, avoid oxy, increased dose of oral Dilaudid PRN
Cleared by vascular surgery for discharge back to care home today
#Atypical chest pain
S/p aspirin 324 mg, Nitrostat sublingual as needed
Troponin was negative, chest tightness resolved, not consistent with ACS
Echo with normal biventricular size and systolic function without regional wall motion abnormalities, mild < EF 60-65%
#End-stage renal failure on dialysis Friday/Friday/Friday
#Shortness of breath
Used left arm fistula on Thursday 02/08
Continue dialysis as per nephrology
Continue midodrine before dialysis
Continue Sevelamer
#Adjustment disorder with depressed mood
Appreciate psychiatry input, who states patient is not suicidal.
No need for one-to-one
Patient declined increasing his Lexapro dose, continue current dose
#Severe b/l upper extremity edema
01/20/2024 left upper extremity Doppler negative for DVT
01/29/2024 right upper extremity Doppler negative for DVT, +small chronic thrombus in the cephalic vein, Encourage use of UEs to decrease swelling.
#Benign essential hypertension
Continue amlodipine 10 mg daily
# Hyponatremia
Mild
#Diabetes
Continue glargine 4 units at bedtime, diabetic diet, sliding scale insulin
#GERD
Continue PPI
#Anemia of chronic disease
Hemoglobin at baseline, continue iron supplements, trend
#History of stroke
Continue Plavix, statin
#Anxiety/depression
Continue SSRI
DVT prophylaxis�subcu heparin
Full code
Dispo - from [facility]
Physical Exam
General: No Apparent Distress
HEENT: NormoCephalic, Anicteric, Moist mucous membranes and Atraumatic
Respiratory: Clear
Cardiac: S1/S2 and Regular Rhythm
GI: Soft, Non Tender, Non Distended and Normal Bowel Sounds
Musculoskeletal: No Clubbing, left BKA with dressing. Previous right BKA noted
Skin: Left foot dressing
Neuro: AAO X3, non focal
Psych: Calm
Anticipated Discharge: Today
Subjective/Interval History
-
Date of Service: February 10, 2024
Reports left BKA pain is tolerable w/ pain meds. No CP/SOB. No fever, no vomiting.
Objective Data
-
Vital Signs:
Vital Signs
Temp Pulse Resp BP Pulse Ox
98.4 F 53 16 125/53 99
02/10/24 08:21 02/10/24 08:21 02/10/24 08:21 02/10/24 08:21 02/10/24 08:21
I&O
02/09/24 02/10/24 02/11/24
06:59 06:59 06:59
Intake Total 1170 / 1170 1320 / 1320
Balance 1170 / 1170 1320 / 1320
--- NOTE | 2024-02-10 10:58 | CM ---
indicated pt ready for discharge to [facility] today.
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
Pt has R BKA hx .02/03 had L BKA done.
Pt on .
Spoke with Candace at [phone] she is aware of pt dc to today.
Medical nec form completed for ambulance .
[facility]
Report [phone]

PLAN Return to [facility]
[2024-02-10 11:32] VITALS: BP 129/59
[2024-02-10 11:50] LABS: Glucose - Point of Care 89 mg/dl (70-99)
--- NOTE | 2024-02-10 11:54 | W.PN.NEPH.PH ---
Today's Communication / Plan
-
d/c today
Assessment/Plan
-
Assessment
ESRD
Hypertension
volume overload
AV fistula left upper arm
Left lower leg wound
Diabetes mellitus type 2
Rt AKA
Chest discomfort, normal troponin
Plan
Hemodialysis MWF
AVF is functions well and CVC was removed on 02/08
hemodynamically stable
reviewed imp of FR , lost 17kg this admit
for d/c today
-
-
Date of Service: February 10, 2024
CC / HPI / ROS
-
Chief Complaint:
ESRD
History of Present Illness:
tolerated HD Friday ESRD: MWF
BP stable
Off antibiotics after amputation
edema better
Review of Systems:
no CP/SOB
pain in amp site controlled
Labs
-
Labs:
WBC 5.6 10^3/uL (4.8-10.8) 02/05/24 12:55
WBC Cancelled 02/05/24 12:55
RBC 2.94 10^6/uL (4.70-6.10) L 02/05/24 12:55
RBC Cancelled 02/05/24 12:55
Hgb 9.2 g/dL (13.0-18.0) L 02/09/24 08:13
Hct 27.4 % (39.0-52.0) L 02/09/24 08:13
Plt Count 231 10^3/uL (130-400) D 02/05/24 12:55
Plt Count Cancelled 02/05/24 12:55
Sodium 134 mmol/L (135-145) L 02/09/24 08:13
Potassium 4.8 mmol/L (3.5-5.1) D 02/09/24 08:13
Chloride 97 mmol/L (98-107) L 02/09/24 08:13
Carbon Dioxide 25 mmol/L (22-30) 02/09/24 08:13
BUN 28 mg/dl (9-20) H 02/06/24 13:00
Creatinine 2.9 mg/dL (0.7-1.3) H 02/06/24 13:00
eGFR 24.46 02/06/24 13:00
Glucose 203 mg/dl (70-99) H 02/06/24 13:00
Calcium 7.2 mg/dl (8.4-10.2) L 02/06/24 13:00
Phosphorus 3.2 mg/dl (2.5-4.5) 01/31/24 08:42
Kqc-G-Xjvcrjckxnk Pept 54428 pg/ml 01/28/24 04:25
Albumin 2.7 g/dl (3.5-5.0) L 01/28/24 04:25
Physical Exam
-
Vital Signs:
Vital Signs
Temp Pulse Resp BP Pulse Ox
97.9 F 52 16 129/59 99
02/10/24 11:32 02/10/24 11:32 02/10/24 11:32 02/10/24 11:32 02/10/24 08:21
Cardiovascular:: Regular rate and rhythm
Respiratory:: Bilateral: CTA
Lung Excursion:: Normal
Abdomen:: Nontender and Soft
Mack Catheter: No
Other Findings::
left BKA stump in dressing, no edema
but UE 1+edema,
AVF good thrill
[2024-02-10] MEDS: RENVELA PO (13:38)
--- NOTE | 2024-02-10 15:23 | W.DCSUMMARY ---
Discharge Summary
Discharge Data
Date of Admission: 01/28/24
Date of Discharge: 02/10/24
-
Pending Results: No
Hospital Course
Discharge diagnosis:
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
Severe peripheral artery disease
Atypical chest pain
End-stage renal failure on dialysis Friday/Friday/Friday
Adjustment disorder with depressed mood
Severe bilateral upper extremity edema
Benign essential hypertension
Hyponatremia
Diabetes
Gastroesophageal reflux disease
Anemia of chronic disease
History of stroke
Anxiety/depression
Consults: Nephrology, podiatry, infectious disease, vascular surgery
Procedures:
02/04/2024 left BKA
Hospital course:
58-year-old male with a past medical history of end-stage renal failure on dialysis Friday/Friday/Friday, diabetes, anemia, diabetic neuropathy, osteomyelitis status post right BKA, hypertension, hyperlipidemia, and stroke who initially presented
with atypical chest pain. Workup was negative for acute coronary syndrome. Patient's chest pain resolved.
Patient was seen in conjunction with nephrology, and received dialysis per his usual schedule.
Patient was seen in conjunction with podiatry and wound care for his left plantar foot wound with surrounding abscess/cellulitis. He was finishing up his course of oral cefuroxime. Podiatry was concerned about poor wound healing, and recommended
vascular surgery and ID consult. Patient has severe peripheral artery disease. He was treated with IV Zosyn. He underwent left BKA on 02/04/2024. ID states he does not need any more antibiotics postprocedure. He had severe left BKA stump pain
postoperatively, and required a LOG PROCESSOR OPERATOR pump.
After several days, his pain improved, and his pain was able to be controlled on oral Dilaudid. Nephrology recommends not using oxycodone.
Patient is medically stable and cleared by both nephrology and vascular surgery for discharge. He needs to follow-up with his primary care doctor in 1 week, as well as nephrology/vascular surgery in 2-3 weeks.
Disposition: [facility]
Discharge planning: Required 48 minutes
Discharge Plan
-
Patient Disposition: Senior Living/SNF
Discharge Diagnosis/Procedures: Left foot gangrene status post left below the knee amputation, shortness of breath/fluid overload, end-stage renal failure on dialysis
Condition: Fair
Diet: Low Sodium and Restrict fluids to 64 oz
Additional Diets: Low potassium diet
Activity: As tolerated
Activity Restrictions/Additional Instructions:
Left below knee amputation site daily or as needed dressing change if soiled, can place gauze and secure with zayda wrap with mild compression to patient comfort.
If no drainage is present and patient prefers can leave open to air.
Miconazole powder to groin, affected areas bid.
Sacrum-clean with saline, miconazole powder to rash like skin followed by no sting barrier wipe, silicone border foam, change daily. If foam ineffective, apply miconazole powder and zinc barrier ointment (i.e. Calazime) bid instead.
Air mattress
Pressure redistributing chair cushion.
Follow up with vascular surgeon.
Follow up with [facility] if needed .
Referrals:
Reina Calzada PA-C [Specified Professional Personl] - 02/18/24 10:30 am (Vascular surgery office follow-up)
Grabiel Bansal, [Family Provider] - in less than 1 week
Prescriptions:
New
miconazole nitrate [Miconazorb AF] 2 % Powder
1 applic topical BID Qty: 85 0RF
hydromorphone 2 mg Tablet
4 mg PO Q4HPRN PRN (Reason: severe pain) Qty: 16 0RF
Continued
atorvastatin 20 MG tablet
20 mg PO HS
clopidogrel 75 MG tablet
75 mg PO DAILY
ergocalciferol (vitamin D2) 50,000 UNITS capsule
50,000 units PO Q30D
Rx Instructions:
the 15th of each month
amlodipine 10 MG tablet
10 mg PO DAILY
sorbitol 30 ML solution
30 ml PO DAILYPRN PRN (Reason: if no bm in 3 days)
omeprazole 20 MG capsule,delayed release(DR/EC)
40 mg PO DAILY
trazodone 100 MG tablet
100 mg PO HS
bisacodyl [OneLAX Bisacodyl] 10 MG suppository
10 mg CO DAILYPRN PRN (Reason: if sorbitol ineffective)
Rx Instructions:
PRN constipation
midodrine 10 mg Tablet
10 mg PO MOWEFR
acetaminophen 325 mg Tablet
650 mg PO Q6HPRN PRN (Reason: mild pain/temp>101)
insulin glargine [Basaglar KwikPen U-100 Insulin] 100 unit/mL (3 mL) Insulin Pen
4 unit SC HS
loperamide [Imodium A-D] 2 mg Capsule
2 mg PO BIDPRN MDD 8MG PRN (Reason: DIARRHEA)
polyethylene glycol 3350 [Miralax] 17 gram Powder In Packet
17 g PO DAILY
sodium polystyrene sulfonate 15 gram/60 mL Suspension
15 g PO DAILYPRN PRN (Reason: MISSED DIALYSIS-High potassium)
ferrous sulfate [FeroSul] 325 mg (65 mg iron) Tablet
325 mg PO DAILY
escitalopram oxalate 10 mg Tablet
15 mg PO DAILY
insulin aspart U-100 [Novolog FlexPen U-100 Insulin] 100 unit/mL (3 mL) Insulin Pen
1 sliding scale dose SC AC
Rx Instructions:
BS 150-200=2 UNITS, 201-250= 4 UNITS, 251-300=6 UNITS, 301-350=8 UNITS, 351-400=10 UNITS.
Balmex Adult Care 11.3 % Cream
1 applic TOPICAL TID
teriparatide 20 mcg/dose (600mcg/2.4mL) Pen Injector
20 mcg SC DAILY
Tradjenta 5 mg Tablet
5 mg PO DAILY
sevelamer carbonate [Renvela] 800 mg Tablet
800 mg PO TID
diclofenac sodium [Arthritis Pain (diclofenac)] 1 % Gel
4 g TOPICAL Q4HPRN PRN (Reason: left thigh)
torsemide 20 mg Tablet
120 mg PO DAILY
ondansetron HCl 4 mg Tablet
4 mg PO Q8HPRN PRN (Reason: nausea)
ammonium lactate 12 % Lotion
1 applic TOPICAL BID
Renal Caps 1 mg Capsule
1 cap PO DAILY
Discontinued
vancomycin 50 mg/mL recon soln
125 mg PO DAILY
cefuroxime axetil 500 mg tablet
500 mg PO DAILY
Rx Instructions:
TAKE FROM 01/24/24-01/29/24
Discharge Orders:
Discharge Patient (As Directed); Ordered 02/10/24
Ordered By: Camron Bravo
Discharge Date and Time
Discharge Date/Time: 02/10/24 13:35
Print Language: [place]
== END 2024-02-10 13:35 | DRG 239 ==
LOC: 3 WEST ACU 10:01
PROVIDERS: Radiology Diagnostic Radiology; Specialist; Student in an Organized Health Care Education/Training Program; ADMITTING PHYSICIAN Family Medicine; CONSULT PHYSICIAN Specialist; CONSULT PHYSICIAN Student in an Organized Health Care Education/Training Program; EMERGENCY PHYSICIAN Student in an Organized Health Care Education/Training Program; FAMILY PHYSICIAN Internal Medicine; OTHER PHYSICIAN Podiatrist Foot & Ankle Surgery; OTHER PHYSICIAN Psychiatry & Neurology Psychiatry; OTHER PHYSICIAN Surgery Vascular Surgery
PROC: 5A1D70Z Performance of Urinary Filtration, Intermittent, Less than 6 Hours Per Day (ICD-10-PCS; 2024-01-28)
PROC: 0Y6J0Z2 Detachment at Left Lower Leg, Mid, Open Approach (ICD-10-PCS; 2024-02-04)
PROC: 05PY33Z Removal of Infusion Device from Upper Vein, Percutaneous Approach (ICD-10-PCS; 2024-02-09)
DX: E11.52 Type 2 diabetes mellitus with diabetic peripheral angiopathy with gangrene (principal); N18.6 End stage renal disease; I12.0 Hypertensive chronic kidney disease with stage 5 chronic kidney disease or end stage renal disease; L03.116 Cellulitis of left lower limb; I69.354 Hemiplegia and hemiparesis following cerebral infarction affecting left non-dominant side; L02.612 Cutaneous abscess of left foot; M86.172 Other acute osteomyelitis, left ankle and foot; E87.1 Hypo-osmolality and hyponatremia; E11.621 Type 2 diabetes mellitus with foot ulcer; E11.22 Type 2 diabetes mellitus with diabetic chronic kidney disease; E11.42 Type 2 diabetes mellitus with diabetic polyneuropathy; E11.69 Type 2 diabetes mellitus with other specified complication; E87.70 Fluid overload, unspecified; E78.00 Pure hypercholesterolemia, unspecified; D63.1 Anemia in chronic kidney disease; N31.9 Neuromuscular dysfunction of bladder, unspecified; F41.9 Anxiety disorder, unspecified; F43.21 Adjustment disorder with depressed mood; K21.9 Gastro-esophageal reflux disease without esophagitis; L97.523 Non-pressure chronic ulcer of other part of left foot with necrosis of muscle; K52.9 Noninfective gastroenteritis and colitis, unspecified; S92.002A Unspecified fracture of left calcaneus, initial encounter for closed fracture; X58.XXXA Exposure to other specified factors, initial encounter; Z99.2 Dependence on renal dialysis; Z79.4 Long term (current) use of insulin; Z79.02 Long term (current) use of antithrombotics/antiplatelets; Z79.899 Other long term (current) drug therapy; Z79.84 Long term (current) use of oral hypoglycemic drugs; Z89.511 Acquired absence of right leg below knee
CPT/HCPCS: 88307; 88311; 27880; 36589; 71046; 73720; 80048; 80051; 80053; 82962; 83735; 83880; 84100; 84484; 85014; 85018; 85025; 85027; 86850; 86900; 86901; 87070; 87075; 87077; 87186; 87205; 93005; 93306; 93922; 93925; 93971; 94760; 99285; A9575; G0257; P9047; Q5106